=== PATIENT | male | born 1990 | race Caucasian/White ===

== ENCOUNTER 2017-08-06 11:49 | Inpatient (IN) | payer OTHER ==
[2017-08-06 12:23] VITALS: BMI 23.6
--- NOTE | 2017-08-06 13:19 | HP ---
CIWA Score - CIWA Score Nausea/Vomitin-Int. Nausea w/Dry Heave Muscle Tremors: 4-Moderate,w/Arms Extend Anxiety: 4-Mod. Anxious/Guarded Agitation: 4-Moderately Restless Paroxysmal Sweats: No Perspiration Orientation: 0-Oriented Tacttile Disturbances: 3-Moderate Itch/Numb/Burn Auditory Disturbances: 0-None Visual Disturbances: 0-None Headache: 2-Mild CIWA-Ar Total Score: 21 Admission ROS BHS - HPI Chief Complaint: WITHDRAWAL SX FROM ALCOHOL Allergies/Adverse Reactions: Allergies Allergy/AdvReac Type Severity Reaction Status Date / Time No Known Allergies Allergy Verified 08/06/17 13:16 History of Present Illness: 26 Y/O H/M WITH A HX OF ALCOHOL DEPENDENCE SEEKING DETOX TX. PT ON METHADONE 110 MG PO DAILY WITH S.T.A.R.T. LAST DOSE TODAY 08/06/17. FIRST TIME HERE FOR DETOX. TOX BENZO(+) BUT PT DENIES USING BENZO EVER. Exam Limitations: No Limitations, Intoxication - Ebola screening Have you traveled outside of the country in the last 21 days: No Have you had contact with anyone from an Ebola affected area: No Have you been sick,other than usual withdrawal symptoms: No Do you have a fever: No - Review of Systems Constitutional: Loss of Appetite, Changes in sleep, Unintentional Wgt. Loss EENT: reports: Blurred Vision, Tearing, Nose Congestion Respiratory: reports: No Symptoms reported Cardiac: reports: No Symptoms Reported GI: reports: Constipated, Nausea, Poor Appetite, Poor Fluid Intake : reports: No Symptoms Reported Musculoskeletal: reports: Joint Pain Integumentary: reports: Dryness Neuro: reports: Headache, Tremors, Unsteady Gait, Dizziness Endocrine: reports: No Symptoms Reported Hematology: reports: Anemia Psychiatric: reports: Orientated x3 Other Systems: Reviewed and Negative Patient History - Patient Medical History Hx Anemia: Yes Hx Asthma: No Hx Cardiac Disorders: No Hx Hypertension: No Hx Hypercholesterolemia: No HX Cerebrovascular Accident: No Hx Seizures: No Hx Diabetes: No Hx Gastrointestinal Disorders: No Hx Sexually Transmitted Disorders: No (DENIES) Hx Renal Disease (ESRD): No Hx Thyroid Disease: No Hx Human Immunodeficiency Virus (HIV): No (NEGATIVE HX) Hx Hepatitis C: No Hx Depression: No Hx Suicide Attempt: No (DENIES) Hx Bipolar Disorder: No Hx Schizophrenia: No - Patient Surgical History Past Surgical History: No Hx Neurologic Surgery: No Hx Cataract Extraction: No Hx Cardiac Surgery: No Hx Lung Surgery: No Hx Breast Surgery: No Hx Breast Biopsy: No Hx Abdominal Surgery: No Hx Appendectomy: No Hx Cholecystectomy: No Hx Genitourinary Surgery: No Hx Orthopedic Surgery: No Anesthesia Reaction: No - PPD History Previous Implant?: Yes Implanted On Prior [facility] Admission?: No PPD to be Administered?: Yes - Reproductive History Patient is a Female of Child Bearing Age (11 -55 yrs old): No (MALE) - Smoking Cessation Smoking history: Never smoked Have you smoked in the past 12 months: No Hx Chewing Tobacco Use: No Initiated information on smoking cessation: No - Substance & Tx. History Hx Alcohol Use: Yes (VODKA) Hx Substance Use: No (DENIES) Substance Use Type: Alcohol Hx Substance Use Treatment: Yes ([facility] - Substances Abused Alcohol Route: Oral Frequency: Daily Amount used: 2-3 PTS VODKA Age of first use: 15 Date of Last Use: 08/06/17 Family Disease History - Family Disease History Family Disease History: Diabetes: Mother (), Respiratory: Grandparent ( GM-ASTHMA(ALIVE)) Admission Physical Exam S - Vital Signs Vital Signs: Vital Signs - 24 hr 08/06/17 12:20 Temperature 98.1 F Pulse Rate 110 H Respiratory 18 Rate Blood Pressure 140/100 - Physical General Appearance: Yes: Moderate Distress, Alcohol on Breath, Intoxicated, Irritable, Anxious HEENTM: Yes: EOMI, Normocephalic, TALIA, Pharynx Normal Respiratory: Yes: Chest Non-Tender, Lungs Clear, Normal Breath Sounds, No Respiratory Distress Neck: Yes: No masses,lesions,Nodules, Supple, Trachea in good position Breast: Yes: Breast Exam Deferred Cardiology: Yes: Regular Rhythm, Regular Rate, S1, S2 Abdominal: Yes: Normal Bowel Sounds, Non Tender, Flat, Soft Genitourinary: Yes: Other (N/C) Back: Yes: Within Normal Limits Musculoskeletal: Yes: full range of Motion, Gait Steady Extremities: Yes: Normal Range of Motion, Non-Tender 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 [employer] II-XII NML intact, Motor Strength 5/5 Integumentary: Yes: Dry, Warm Lymphatic: Yes: Within Normal Limits - Diagnostic (1) Alcohol dependence with uncomplicated withdrawal Current Visit: Yes Status: Acute (2) Methadone maintenance therapy patient Current Visit: Yes Status: Chronic Cleared for Admission [facility] - Detox or Rehab [facility] Level of Care: Medically Managed Detox Regimen/Protocol: Librium [facility] Breath Alcohol Content Breath Alcohol Content: 0.282 Urine Drug Screen - Results Drug Screen Negative: No Urine Drug Screen Results: BZO-Benzodiazepines, MTD-Methadone
[2017-08-06] MEDS ORDERED: MAGNESIUM CITRATE 300 ML BOTTLE PO PRN (13:35)
[2017-08-06] MEDS ORDERED: LOPERAMIDE HCL 2 MG CAPSULE PO PRN (13:35)
[2017-08-06] MEDS ORDERED: MAGNESIUM HYDROX 2400MG/30ML ORAL SUSPENSION 30 ML CUP PO PRN (13:35)
[2017-08-06] MEDS ORDERED: P-EPHED 60MG/TRIPROLIDI 2.5MG TABLET PO PRN (13:35)
[2017-08-06] MEDS ORDERED: guaiFENesin/D-METHORPHAN HB 10 ML UNIT-DOSE CUPS PO PRN (13:35)
[2017-08-06] MEDS ORDERED: ACETAMINOPHEN 325 MG TABLET (FP) PO PRN (13:35)
[2017-08-06] MEDS ORDERED: chlordiazePOXIDE HCL 25 MG CAPSULE PO ONE (15:20)
[2017-08-06 18:05] LABS: HEMATOCRIT 34.1 % (35.4-49); HEMOGLOBIN 11.1 GM/dL (11.7-16.9); MCH 32.7 pg (25.7-33.7); MCHC 32.6 g/dl (32.0-35.9); MEAN CELL VOLUME 100.4 fl (80-96); MEAN PLT VOLUME 8.3 fl (7.5-11.1); PLATELET COUNT 447 K/MM3 (134-434); RBC 3.39 M/mm3 (4.00-5.60); RDW 13.9 % (11.9-15.9); WHITE BLOOD COUNT 9.9 K/mm3 (4.0-10.0)
[2017-08-06] MEDS: chlordiazePOXIDE HCL 25 MG CAPSULE PO SCH ×2 (18:07→22:35)
[2017-08-06 18:15] LABS: ANION GAP 9 (8-16); BILIRUBIN,TOTAL 1.4 mg/dL (0.2-1.0); BLOOD UREA NITROGEN 18 mg/dL (7-18); CALCIUM 8.7 mg/dL (8.5-10.1); CHLORIDE 105 mmol/L (98-107); CO2 27 mmol/L (21-32); GLUCOSE,RANDOM 96 mg/dL (74-106); POTASSIUM 4.1 mmol/L (3.5-5.1); SGOT/AST 156 U/L (15-37); SGPT/ALT 132 U/L (12-78); SODIUM 141 mmol/L (136-145)
[2017-08-06 18:27] LABS: URINE APPEARANCE TURBID; URINE BILIRUBIN NEGATIVE (NEGATIVE); URINE BLOOD NEGATIVE (NEGATIVE); URINE COLOR AMBER; URINE GLUCOSE (UA) NEGATIVE (NEGATIVE); URINE KETONE NEGATIVE (NEGATIVE); URINE LEUK ESTERASE 1+ (NEGATIVE); URINE NITRITE NEGATIVE (NEGATIVE); URINE PROTEIN 1+ (NEGATIVE); URINE UROBILINOGEN 4.0 E.U/dl mg/dL (0.2-1.0)
[2017-08-06 18:30] LABS: ALK PHOS 1210 U/L (45-117)
[2017-08-06 18:42] LABS: EPI CELLS RARE /HPF (FEW); URINE BACTERIA RARE /hpf (NONE SEEN); URINE HYALINE CAST 2 /lpf; URINE MUCUS MANY
[2017-08-06 19:17] LABS: SICKLE CELL SCREEN NEGATIVE (NEGATIVE)
[2017-08-06] MEDS: THIAMINE HCL 100 MG TABLET (FP) PO SCH (22:35)
[2017-08-06] MEDS: MENTHOL/PHENOL 1 EACH UD MM PRN (22:44)
[2017-08-06] MEDS: MAG HYDROX/AL HYDROX/SIMETH 30 ML UNIT-DOSE CUP PO PRN (23:42)
[2017-08-07] MEDS: chlordiazePOXIDE HCL 25 MG CAPSULE PO SCH ×4 (05:17→22:31)
[2017-08-07] MEDS ORDERED: METHADONE HCL 40 MG DISPERSABLE TABLET PO SCH (08:45)
[2017-08-07] MEDS ORDERED: METHADONE HCL 40 MG DISPERSABLE TABLET ONE (09:21)
[2017-08-07] MEDS ORDERED: METHADONE HCL 10 MG TABLET ONE (09:22)
--- NOTE | 2017-08-07 09:38 | EKG ---
Test Reason : Blood Pressure : / mmHG Vent. Rate : 070 BPM Atrial Rate : 070 BPM P-R Int : 160 ms QRS Dur : 084 ms QT Int : 412 ms P-R-T Axes : 054 059 047 degrees QTc Int : 444 ms NORMAL SINUS RHYTHM NORMAL ECG NO PREVIOUS ECGS AVAILABLE Confirmed by ANTONIO MCINTYRE, CAMERON ([id number]) on 08/07/2017 9:37:40 AM Referred By: Confirmed By:CAMERON ALVAREZ MD
--- NOTE | 2017-08-07 10:10 | PN ---
S CIWA - CIWA Score Nausea/Vomitin Muscle Tremors: 3 Anxiety: 3 Agitation: 2 Paroxysmal Sweats: 1-Minimal Palms Moist Orientation: 0-Oriented Tacttile Disturbances: 1-Very Mild Itch/Numbness Auditory Disturbances: 1-Very Mild Visual Disturbances: 0-None Headache: 2-Mild CIWA-Ar Total Score: 16 BHS Progress Note (SOAP) Subjective: ALERT,IRRITABLE,ANXIOUS,INTERRUPTED SLEEP,TREMOR,ITCHING BOTH FOREARMS Objective: 08/07/17 10:07 Vital Signs Temperature 97.9 F 08/07/17 07:27 Pulse Rate 60 08/07/17 07:27 Respiratory Rate 16 08/07/17 07:27 Blood Pressure 138/84 08/07/17 07:27 O2 Sat by Pulse Oximetry (%) EKG NSR,NORMAL ECG Laboratory Last Values WBC 9.9 K/mm3 (4.0-10.0) 08/06/17 14:00 RBC 3.39 M/mm3 (4.00-5.60) L 08/06/17 14:00 Hgb 11.1 GM/dL (11.7-16.9) L 08/06/17 14:00 Hct 34.1 % (35.4-49) L 08/06/17 14:00 MCV 100.4 fl (80-96) H 08/06/17 14:00 MCH 32.7 pg (25.7-33.7) 08/06/17 14:00 MCHC 32.6 g/dl (32.0-35.9) 08/06/17 14:00 RDW 13.9 % (11.9-15.9) 08/06/17 14:00 Plt Count 447 K/MM3 (134-434) H 08/06/17 14:00 MPV 8.3 fl (7.5-11.1) 08/06/17 14:00 Sickle Cell Screen Negative (NEGATIVE) 08/06/17 14:00 Sodium 141 mmol/L (136-145) 08/06/17 14:00 Potassium 4.1 mmol/L (3.5-5.1) 08/06/17 14:00 Chloride 105 mmol/L (98-107) 08/06/17 14:00 Carbon Dioxide 27 mmol/L (21-32) 08/06/17 14:00 Anion Gap 9 (8-16) 08/06/17 14:00 BUN 18 mg/dL (7-18) 08/06/17 14:00 Creatinine 1.0 mg/dL (0.7-1.3) 08/06/17 14:00 Creat Clearance w eGFR > 60 (>60) 08/06/17 14:00 Random Glucose 96 mg/dL (74-106) 08/06/17 14:00 Calcium 8.7 mg/dL (8.5-10.1) 08/06/17 14:00 Total Bilirubin 1.4 mg/dL (0.2-1.0) H 08/06/17 14:00 AST 156 U/L (15-37) H 08/06/17 14:00 ALT 132 U/L (12-78) H 08/06/17 14:00 Alkaline Phosphatase 1210 U/L (45-117) H 08/06/17 14:00 Total Protein 9.0 g/dl (6.4-8.2) H 08/06/17 14:00 Albumin 3.0 g/dl (3.4-5.0) L 08/06/17 14:00 Urine Color Jaqui 08/06/17 18:00 Urine Appearance Turbid 08/06/17 18:00 Urine pH 5.0 (5.0-8.0) 08/06/17 18:00 Ur Specific [place] 1.026 (1.001-1.035) 08/06/17 18:00 Urine Protein 1+ (NEGATIVE) H 08/06/17 18:00 Urine Glucose (UA) Negative (NEGATIVE) 08/06/17 18:00 Urine Ketones Negative (NEGATIVE) 08/06/17 18:00 Urine Blood Negative (NEGATIVE) 08/06/17 18:00 Urine Nitrite Negative (NEGATIVE) 08/06/17 18:00 Urine Bilirubin Negative (NEGATIVE) 08/06/17 18:00 Urine Urobilinogen 4.0 e.u/dl mg/dL (0.2-1.0) 08/06/17 18:00 Ur Leukocyte Esterase 1+ (NEGATIVE) H 08/06/17 18:00 Urine WBC (Auto) 12 /hpf (3-5) 08/06/17 18:00 Urine RBC (Auto) 11 /hpf (0-3) 08/06/17 18:00 Ur Epithelial Cells Rare /HPF (FEW) 08/06/17 18:00 Urine Bacteria Rare /hpf (NONE SEEN) 08/06/17 18:00 Hyaline Casts 2 /lpf 08/06/17 18:00 Urine Mucus Many 08/06/17 18:00 RPR Titer Nonreactive (NONREACTIVE) 08/06/17 14:00 Assessment: 08/07/17 10:08 WITHDRAWAL SYMPTOM Plan: CONTINUE DETOX,D/C TYLENOL,REPEAT CMP,INR IN AM
[2017-08-07] MEDS: METHADONE 80 MG, METHADONE 30 MG PO SCH (10:24)
[2017-08-07] MEDS: PRENATAL VITAMINS W/ FOLIC ACID TABLET (FP) PO SCH (10:25)
[2017-08-07] MEDS: HYDROCORTISONE 1% TOPICAL CREAM 30 GM TUBE TP SCH ×2 (10:25→22:33)
[2017-08-07] MEDS ORDERED: cloNIDine HCL 0.1 MG TABLET PO ONE (12:27)
[2017-08-07] MEDS: chlordiazePOXIDE HCL 25 MG CAPSULE PO PRN (13:00)
[2017-08-07] MEDS: MENTHOL/PHENOL 1 EACH UD MM PRN (14:53)
[2017-08-07] MEDS: diphenhydrAMINE HCL 25 MG CAPSULE (FP) PO PRN (16:52)
[2017-08-07] MEDS: THIAMINE HCL 100 MG TABLET (FP) PO SCH (22:31)
[2017-08-07] MEDS: amLODIPine BESYLATE 10 MG TABLET (FP) PO SCH (22:31)
[2017-08-08] MEDS: chlordiazePOXIDE HCL 25 MG CAPSULE PO PRN (02:42)
[2017-08-08] MEDS: MAG HYDROX/AL HYDROX/SIMETH 30 ML UNIT-DOSE CUP PO PRN (04:20)
[2017-08-08] MEDS ORDERED: METHADONE HCL 40 MG DISPERSABLE TABLET ONE (04:42)
[2017-08-08] MEDS ORDERED: METHADONE HCL 10 MG TABLET ONE (04:42)
[2017-08-08] MEDS: chlordiazePOXIDE HCL 25 MG CAPSULE PO SCH ×2 (05:15→10:32)
[2017-08-08] MEDS: METHADONE 80 MG, METHADONE 30 MG PO SCH (05:15)
--- NOTE | 2017-08-08 10:03 | PN ---
S CIWA - CIWA Score Nausea/Vomitin Muscle Tremors: 3 Anxiety: 3 Agitation: 3 Paroxysmal Sweats: 1-Minimal Palms Moist Orientation: 0-Oriented Tacttile Disturbances: 1-Very Mild Itch/Numbness Auditory Disturbances: 1-Very Mild Visual Disturbances: 0-None Headache: 2-Mild CIWA-Ar Total Score: 17 BHS Progress Note (SOAP) Subjective: ALERT,IRRITABLE,ANXIOUS,INTERRUPTED SLEEP,TREMOR Objective: 08/08/17 10:02 Vital Signs Temperature 98.1 F 08/08/17 10:00 Pulse Rate 73 08/08/17 10:00 Respiratory Rate 20 08/08/17 10:00 Blood Pressure 151/87 08/08/17 10:00 O2 Sat by Pulse Oximetry (%) REPEAT CMP,INR PENDING Assessment: 08/08/17 10:03 WITHDRAWAL SYMPTOM Plan: CONTINUE DETOX
[2017-08-08 10:04] LABS: PROTHROMBIN TIME (PATIENT) 11.3 SEC (9.98-11.88)
[2017-08-08 10:05] LABS: CHLORIDE 99 mmol/L (98-107); POTASSIUM 4.4 mmol/L (3.5-5.1); SODIUM 133 mmol/L (136-145)
[2017-08-08] MEDS: HYDROCORTISONE 1% TOPICAL CREAM 30 GM TUBE TP SCH ×2 (10:32→22:16)
[2017-08-08] MEDS: PRENATAL VITAMINS W/ FOLIC ACID TABLET (FP) PO SCH (10:32)
[2017-08-08] MEDS: amLODIPine BESYLATE 10 MG TABLET (FP) PO SCH (10:32)
[2017-08-08 10:35] LABS: ALBUMIN 2.9 g/dl (3.4-5.0); ANION GAP 6 (8-16); BILIRUBIN,TOTAL 2.5 mg/dL (0.2-1.0); BLOOD UREA NITROGEN 17 mg/dL (7-18); CALCIUM 9.5 mg/dL (8.5-10.1); CO2 28 mmol/L (21-32); CREATININE 0.8 mg/dL (0.7-1.3); GLUCOSE,RANDOM 121 mg/dL (74-106); SGOT/AST 195 U/L (15-37); SGPT/ALT 137 U/L (12-78)
[2017-08-08] MEDS: MENTHOL/PHENOL 1 EACH UD MM PRN (10:35)
[2017-08-08 10:37] LABS: ALK PHOS 1236 U/L (45-117)
[2017-08-08] MEDS: chlordiazePOXIDE 5 MG CAPSULE PO SCH ×2 (17:55→22:15)
[2017-08-08] MEDS: THIAMINE HCL 100 MG TABLET (FP) PO SCH (22:15)
[2017-08-08] MEDS: IBUPROFEN 400 MG TABLET (FP) PO PRN (23:54)
[2017-08-09] MEDS: chlordiazePOXIDE HCL 25 MG CAPSULE PO PRN (03:09)
[2017-08-09] MEDS: diphenhydrAMINE HCL 25 MG CAPSULE (FP) PO PRN (03:22)
[2017-08-09] MEDS: chlordiazePOXIDE 5 MG CAPSULE PO SCH ×2 (05:17→11:30)
[2017-08-09] MEDS ORDERED: METHADONE HCL 40 MG DISPERSABLE TABLET ONE (05:17)
[2017-08-09] MEDS ORDERED: METHADONE HCL 10 MG TABLET ONE (05:17)
[2017-08-09] MEDS: METHADONE 80 MG, METHADONE 30 MG PO SCH (05:17)
[2017-08-09] MEDS: HYDROCORTISONE 1% TOPICAL CREAM 30 GM TUBE TP SCH ×2 (11:30→22:20)
[2017-08-09] MEDS: amLODIPine BESYLATE 10 MG TABLET (FP) PO SCH (11:30)
[2017-08-09] MEDS: PRENATAL VITAMINS W/ FOLIC ACID TABLET (FP) PO SCH (11:30)
--- NOTE | 2017-08-09 12:07 | PN ---
S Progress Note (SOAP) Subjective: ALERT,IRRITABLE,ANXIOUS,INTERRUPTED SLEEP, Objective: 08/09/17 12:05 Vital Signs Temperature 98.1 F 08/09/17 10:30 Pulse Rate 85 08/09/17 10:30 Respiratory Rate 18 08/09/17 10:30 Blood Pressure 152/81 08/09/17 10:30 O2 Sat by Pulse Oximetry (%) Assessment: 08/09/17 12:05 WITHDRAWAL SYMPTOM Plan: CONTINUE DETOX,DISCHARGE IN AM,A & D OINTMENT
[2017-08-09] MEDS: IBUPROFEN 400 MG TABLET (FP) PO PRN ×2 (17:37→23:42)
[2017-08-09] MEDS: chlordiazePOXIDE HCL 10 MG CAPSULE PO SCH ×2 (17:38→22:20)
[2017-08-09] MEDS: VITAMINS A AND D TOPICAL OINTMENT 60 GM TUBE TP SCH ×2 (18:05→23:18)
[2017-08-09] MEDS: THIAMINE HCL 100 MG TABLET (FP) PO SCH (22:20)
[2017-08-10] MEDS ORDERED: METHADONE HCL 10 MG TABLET ONE (04:25)
[2017-08-10] MEDS ORDERED: METHADONE HCL 40 MG DISPERSABLE TABLET ONE (04:25)
[2017-08-10] MEDS: chlordiazePOXIDE HCL 10 MG CAPSULE PO SCH (05:42)
[2017-08-10] MEDS: METHADONE 80 MG, METHADONE 30 MG PO SCH (05:42)
[2017-08-10] MEDS: VITAMINS A AND D TOPICAL OINTMENT 60 GM TUBE TP SCH (05:44)
[2017-08-10 06:44] VITALS: BP 142/67; PULSE 67; TEMP 98.1
--- NOTE | 2017-08-10 08:56 | DS ---
[facility] Detox Discharge Summary Admission Date: 08/06/17 Discharge Date: 08/10/17 - History Present History: Alcohol Dependence, MMTP Additional Comments: FOLLOW UP WITH AFTER CARE PROGRAM ARRANGEMENT Pertinent Past History: CONTACT DERMATITIS - Physical Exam Results Vital Signs: Vital Signs Temperature 98.1 F 08/10/17 06:00 Pulse Rate 67 08/10/17 06:00 Respiratory Rate 16 08/10/17 06:00 Blood Pressure 142/67 08/10/17 06:00 O2 Sat by Pulse Oximetry (%) Pertinent Admission Physical Exam Findings: WITHDRAWAL SIGNS AND SYMPTOM - Treatment Hospital Course: Detox Protocol Followed, Detoxed Safely, Responded well, Discharged Condition Good Patient has Accepted a Rehab Referral to: DECLINED - Diagnosis (1) Alcohol dependence with uncomplicated withdrawal Current Visit: Yes Status: Acute (2) Methadone maintenance therapy patient Current Visit: Yes Status: Chronic (3) Contact dermatitis Current Visit: Yes Status: Acute - AMA Did Patient Leave Against Medical Advice: No
== END 2017-08-10 09:08 | disposition home or self-care (01) | DRG 773 ==
LOC: YASAS 11:49 → Y6N 15:13
PROVIDERS: ADMIT Internal Medicine; ATTEND Internal Medicine
PROC: HZ2ZZZZ Detoxification Services for Substance Abuse Treatment (ICD-10-PCS; principal; 2017-08-06)
DX: F11.20 Opioid dependence, uncomplicated (principal); F10.230 Alcohol dependence with withdrawal, uncomplicated; L25.9 Unspecified contact dermatitis, unspecified cause
CPT/HCPCS: 36415; 80053; 81003; 81015; 85027; 85610; 85660; 86593; 93005; 93010

== ENCOUNTER 2017-08-14 15:55 | Inpatient (IN) | payer OTHER ==
[~2017-08-14 15:55] MED LIST: diphenhydrAMINE HCL 25 MG CAPSULE (FP) PO ONE
[2017-08-14 19:48] VITALS: BMI 22.3
--- NOTE | 2017-08-14 21:32 | HP ---
Admission ROS [facility] Chief Complaint: Alcohol dependence seeking admission to rehab Allergies/Adverse Reactions: Allergies Allergy/AdvReac Type Severity Reaction Status Date / Time No Known Allergies Allergy Verified 08/06/17 13:16 History of Present Illness: Patient with a history of alcohol dependence is admitted to rehab. Patient has been in previous rehab treatment at [facility]. He reports medical history of anemia and eczema and denies suicidal ideation at this time. Patient is on Methadone 100mg oral daily at [facility] MMTP. Dose is to be verified by the nurse. Exam Limitations: No Limitations - Ebola screening Have you traveled outside of the country in the last 21 days: No Have you had contact with anyone from an Ebola affected area: No Have you been sick,other than usual withdrawal symptoms: No - Review of Systems Constitutional: No Symptoms Reported EENT: reports: No Symptoms Reported Respiratory: reports: No Symptoms reported Cardiac: reports: No Symptoms Reported GI: reports: No Symptoms Reported : reports: No Symptoms Reported Musculoskeletal: reports: No Symptoms Reported Integumentary: reports: No Symptoms Reported Neuro: reports: No Symptoms reported Endocrine: reports: No Symptoms Reported Hematology: reports: No Symptoms Reported Psychiatric: reports: No Sypmtoms Reported, Mood/Affect Appropiate, Orientated x3 Other Systems: Reviewed and Negative Patient History - Patient Medical History Hx Anemia: Yes Hx Asthma: No Hx Chronic Obstructive Pulmonary Disease (COPD): No Hx Cancer: No Hx Cardiac Disorders: No Hx Congestive Heart Failure: No Hx Hypertension: No Hx Hypercholesterolemia: No HX Cerebrovascular Accident: No Hx Seizures: No Hx Diabetes: No Hx Gastrointestinal Disorders: No Hx Liver Disease: No Hx Genitourinary Disorders: No Hx Sexually Transmitted Disorders: No (DENIES) Hx Renal Disease (ESRD): No Hx Thyroid Disease: No Hx Human Immunodeficiency Virus (HIV): No (Negative 2016) Hx Hepatitis C: No (Negative 2016) Hx Depression: No Hx Suicide Attempt: No (Denies suicidal ideation at this time) Hx Bipolar Disorder: No Hx Schizophrenia: No - Patient Surgical History Past Surgical History: No Hx Neurologic Surgery: No Hx Cataract Extraction: No Hx Cardiac Surgery: No Hx Lung Surgery: No Hx Abdominal Surgery: No Hx Appendectomy: No Hx Cholecystectomy: No Hx Genitourinary Surgery: No Hx Orthopedic Surgery: No Anesthesia Reaction: No - PPD History Previous Implant?: Yes Documented Results: Negative w/proof Implanted On Prior [facility] Admission?: Yes PPD to be Administered?: No - Reproductive History Patient is a Female of Child Bearing Age (11 -55 yrs old): No (MALE) - Smoking Cessation Smoking history: Never smoked Have you smoked in the past 12 months: No Hx Chewing Tobacco Use: No - Substance & Tx. History Hx Alcohol Use: Yes Substance Use Type: Alcohol Hx Substance Use Treatment: Yes ([facility]) - Substances Abused Alcohol Route: Oral Frequency: Daily Amount used: VODKA - 1/2 PINT Age of first use: 15 Date of Last Use: 07/30/17 Family Disease History - Family Disease History Family Disease History: Diabetes: Mother (ASTHMA, ), Respiratory: Grandparent (GM-ASTHMA(ALIVE)), Mother Admission Physical Exam [facility] - Vital Signs Vital Signs: Vital Signs - 24 hr 08/14/17 19:44 Temperature 98.0 F Pulse Rate 75 Respiratory 18 Rate Blood Pressure 165/82 - Physical General Appearance: Yes: Within Normal Limits HEENTM: Yes: EOMI, Normal ENT Inspection, Normocephalic, Normal Voice, TALIA Respiratory: Yes: Lungs Clear, Normal Breath Sounds, No Respiratory Distress Neck: Yes: Supple Breast: Yes: Breast Exam Deferred Cardiology: Yes: Regular Rhythm, Regular Rate, S1, S2 Abdominal: Yes: Normal Bowel Sounds, Soft Genitourinary: Yes: Within Normal Limits Back: Yes: Normal Inspection Musculoskeletal: Yes: Within Normal Limits Extremities: Yes: Within Normal Limits Neurological: Yes: Within Normal Limits Integumentary: Yes: Within Normal Limits, Dry Lymphatic: Yes: Within Normal Limits - Diagnostic (1) Anemia Current Visit: Yes Status: Chronic Qualifiers: Anemia type: B12 deficiency (2) Alcohol dependence with uncomplicated withdrawal Current Visit: Yes Status: Chronic (3) Contact dermatitis Current Visit: Yes Status: Chronic (4) Methadone maintenance therapy patient Current Visit: Yes Status: Chronic Cleared for Admission [facility] - Detox or Rehab [facility] Level of Care: Observation Bed Claeared for Rehab Admission: Yes [facility] Breath Alcohol Content Breath Alcohol Content: 0 Urine Drug Screen - Results Drug Screen Negative: No Urine Drug Screen Results: BZO-Benzodiazepines Inpatient Rehab Admission - Initial Determination Are CD services needed?: Yes Free of communicable disease: Yes Not in need of hospitalization: Yes - Rehab Admission Criteria Previous failed treatment: Yes Poor recovery environment: Yes Comorbidities: No Lacks judgement: No Patient is meeting Inpatient Rehab admission criteria:: Yes
[2017-08-14] MEDS ORDERED: P-EPHED 60MG/TRIPROLIDI 2.5MG TABLET PO PRN (21:45)
[2017-08-14] MEDS ORDERED: MENTHOL/PHENOL 1 EACH UD MM PRN (21:45)
[2017-08-14] MEDS ORDERED: MAG HYDROX/AL HYDROX/SIMETH 30 ML UNIT-DOSE CUP PO PRN (21:45)
[2017-08-14] MEDS ORDERED: LOPERAMIDE HCL 2 MG CAPSULE PO PRN (21:45)
[2017-08-14] MEDS ORDERED: guaiFENesin/D-METHORPHAN HB 10 ML UNIT-DOSE CUPS PO PRN (21:45)
[2017-08-14] MEDS ORDERED: ACETAMINOPHEN 325 MG TABLET (FP) PO PRN (21:45)
[2017-08-14] MEDS ORDERED: IBUPROFEN 400 MG TABLET (FP) PO PRN (21:45)
[2017-08-14] MEDS ORDERED: MAGNESIUM CITRATE 300 ML BOTTLE PO PRN (21:45)
[2017-08-14] MEDS ORDERED: HYDROCORTISONE 1% TOPICAL CREAM 30 GM TUBE TP SCH (22:00)
[2017-08-14] MEDS: THIAMINE HCL 100 MG TABLET (FP) PO SCH (23:55)
[2017-08-15] MEDS ORDERED: diphenhydrAMINE HCL 25 MG CAPSULE (FP) PO ONE (00:30)
--- NOTE | 2017-08-15 09:07 | PN ---
BHS Progress Note (SOAP) Subjective: c/o eczema and dry skin on hands causing itching also feet and other parts of body, eczema not effective, does nto like steroid cream would like to restart oral teroids Objective: 08/15/17 09:06 Vital Signs - 24 hr 08/14/17 08/15/17 08/15/17 19:44 03:59 06:52 Temperature 98.0 F 98.5 F Pulse Rate 75 80 Respiratory 18 18 Rate Blood Pressure 165/82 153/84 labs pending Assessment: 08/15/17 09:06 restart oral predinisone, switch to hydrocortisone ointment, hydroxyzine for itching.
[2017-08-15] MEDS ORDERED: METHADONE HCL 10 MG TABLET PO SCH (09:15)
[2017-08-15] MEDS ORDERED: METHADONE HCL 10 MG TABLET ONE (09:52)
[2017-08-15] MEDS: METHADONE 80 MG, METHADONE 20 MG PO SCH (10:01)
[2017-08-15] MEDS: PRENATAL VITAMINS W/ FOLIC ACID TABLET (FP) PO SCH (10:01)
[2017-08-15] MEDS: predniSONE 20 MG TABLET (UD) PO SCH (10:19)
[2017-08-15] MEDS: HYDROCORTISONE 1% TOPICAL OINT 30 GM TUBE TP SCH (10:20)
[2017-08-15] MEDS: COLLOIDAL OATMEAL 1 BAR EACH TP PRN (10:23)
[2017-08-15 10:50] LABS: ALBUMIN 2.7 g/dl (3.4-5.0); ANION GAP 9 (8-16); BLOOD UREA NITROGEN 14 mg/dL (7-18); CALCIUM 9.3 mg/dL (8.5-10.1); CHLORIDE 98 mmol/L (98-107); CO2 27 mmol/L (21-32); CREATININE 0.9 mg/dL (0.7-1.3); GLUCOSE,RANDOM 94 mg/dL (74-106); HEMATOCRIT 33.2 % (35.4-49); HEMOGLOBIN 11.1 GM/dL (11.7-16.9); MCH 32.7 pg (25.7-33.7); MCHC 33.3 g/dl (32.0-35.9); MEAN CELL VOLUME 98.2 fl (80-96); MEAN PLT VOLUME 8.4 fl (7.5-11.1); PLATELET COUNT 528 K/MM3 (134-434); POTASSIUM 4.4 mmol/L (3.5-5.1); RBC 3.38 M/mm3 (4.00-5.60); RDW 12.9 % (11.9-15.9); SGOT/AST 130 U/L (15-37); SGPT/ALT 88 U/L (12-78); SODIUM 134 mmol/L (136-145); WHITE BLOOD COUNT 9.8 K/mm3 (4.0-10.0)
[2017-08-15 10:53] LABS: ALK PHOS 998 U/L (45-117); BILIRUBIN,TOTAL 1.9 mg/dL (0.2-1.0); TOT PROT 8.5 g/dl (6.4-8.2)
--- NOTE | 2017-08-15 11:21 | HP ---
Psychiatrist Admission - Data Date of interview: 08/15/17 Admission source: 3N Identifying data: This is the first 5N inpatient rehabilitation admission for this 26 year old isngle male, unemployed and domiciled. Medical History: Contact dermatitis, HTN no meds and anemia. Patient on MMTP at [facility] 100 mg/daily. Psychiatric History: Patient reports history of anxiety and mood swings, states saw the psychiatrist while at [facility] rehabilitation treatment and was on Gabapentin 300 mg po tid, states he tried Buspar and was not effective. He continues Gabapenit after the complition of rehab. and then was off medication for 2 months since was incarcerated for 2 months. He currently reports feeling very anxious and willing to restart Gabapentin. Physical/Sexual Abuse/Trauma History: Patient denies history of sexual, physical and verbal abuse. Vital Signs: Vital Signs - 24 hr 08/14/17 08/15/17 08/15/17 19:44 03:59 06:52 Temperature 98.0 F 98.5 F Pulse Rate 75 80 Respiratory 18 Rate Blood Pressure 165/82 153/84 Allergies/Adverse Reactions: Allergies Allergy/AdvReac Type Severity Reaction Status Date / Time No Known Allergies Allergy Verified 08/06/17 13:16 Date of last physical exam: 08/14/17 Concur with the findings of this exam: Yes - Substance Abuse/Tx History Hx Alcohol Use: Yes (2-3 pints of vodka daily) Hx Substance Use: No (on MMTP 100 mg daily.) Hx Substance Use Treatment: Yes ([facility] completed) Mental Status Exam - Mental Status Exam Alert and Oriented to: Time, Place, Person Cognitive Function: Grossly Intact Patient Appearance: Well Groomed Mood: Sad, Anxious Affect: Appropriate, Mood Congruent Patient Behavior: Appropriate, Cooperative Speech Pattern: Clear, Appropriate Voice Loudness: Normal Thought Process: Intact, Goal Oriented Thought Disorder: Not Present Hallucinations: Denies Suicidal Ideation: Denies Homicidal Ideation: Denies Insight/Judgement: Fair Sleep: Fair Appetite: Good Muscle strength/Tone: Normal Gait/Station: Normal Psychiatric Findings - Problem List ([place] 1, 2,3) (1) Alcohol-induced anxiety disorder Current Visit: Yes Status: Acute (2) Alcohol dependence Current Visit: Yes Status: Acute (3) Anemia Current Visit: Yes Status: Chronic Qualifiers: Anemia type: B12 deficiency (4) Contact dermatitis Current Visit: Yes Status: Chronic (5) Methadone maintenance therapy patient Current Visit: Yes Status: Chronic - Initial Treatment Plan Initial Treatment Plan: Will restart Gabapentin 300 mg po tid, monitor progress as needed.
--- NOTE | 2017-08-15 12:35 | EKG ---
Test Reason : Blood Pressure : / mmHG Vent. Rate : 051 BPM Atrial Rate : 051 BPM P-R Int : 158 ms QRS Dur : 092 ms QT Int : 468 ms P-R-T Axes : 052 063 043 degrees QTc Int : 431 ms SINUS BRADYCARDIA MINIMAL VOLTAGE CRITERIA FOR LVH, MAY BE NORMAL VARIANT BORDERLINE ECG WHEN COMPARED WITH ECG OF 06-AUG-2017 17:40, NO SIGNIFICANT CHANGE WAS FOUND Confirmed by ANANT MCINTYRE, GRETCHEN ([id number]) on 08/15/2017 12:35:20 PM Referred By: Confirmed By:GRETCHEN [place] MD
[2017-08-15] MEDS ORDERED: diphenhydrAMINE HCL 25 MG CAPSULE (FP) PO SCH (14:00)
[2017-08-15] MEDS: GABAPENTIN 300 MG CAPSULE (FP) PO SCH ×2 (15:00→21:14)
[2017-08-15] MEDS: hydrOXYzine PAMOATE 50 MG CAPSULE (FP) PO SCH ×2 (15:28→21:14)
[2017-08-15] MEDS: THIAMINE HCL 100 MG TABLET (FP) PO SCH (21:14)
[2017-08-16] MEDS ORDERED: METHADONE HCL 10 MG TABLET ONE (02:42)
[2017-08-16] MEDS ORDERED: METHADONE HCL 40 MG DISPERSABLE TABLET ONE (02:42)
[2017-08-16] MEDS: METHADONE 80 MG, METHADONE 20 MG PO SCH (06:19)
[2017-08-16] MEDS: hydrOXYzine PAMOATE 50 MG CAPSULE (FP) PO SCH (06:20)
[2017-08-16] MEDS: GABAPENTIN 300 MG CAPSULE (FP) PO SCH ×3 (06:20→21:10)
[2017-08-16 08:27] LABS: URINE APPEARANCE CLEAR; URINE BILIRUBIN NEGATIVE (NEGATIVE); URINE BLOOD NEGATIVE (NEGATIVE); URINE COLOR YELLOW; URINE GLUCOSE (UA) NEGATIVE (NEGATIVE); URINE KETONE NEGATIVE (NEGATIVE); URINE LEUK ESTERASE NEGATIVE (NEGATIVE); URINE NITRITE NEGATIVE (NEGATIVE); URINE PROTEIN NEGATIVE (NEGATIVE); URINE UROBILINOGEN NEGATIVE mg/dL (0.2-1.0)
[2017-08-16] MEDS: predniSONE 20 MG TABLET (UD) PO SCH (09:49)
[2017-08-16] MEDS: PRENATAL VITAMINS W/ FOLIC ACID TABLET (FP) PO SCH (09:49)
[2017-08-16] MEDS: HYDROCORTISONE 1% TOPICAL OINT 30 GM TUBE TP SCH ×4 (09:51→21:14)
--- NOTE | 2017-08-16 13:28 | PN ---
Psychiatric Progress Note Vital Signs: Vital Signs Period Temp Pulse Resp BP Sys/Graham Pulse Ox Last 24 Hr 98.1 F 57 16-17 129/71 Date of Session: 08/16/17 Chief Complaint:: progress update HPI: Patient is addresing alcohol, nicotine dependence comorbid alcohol induced anxiety disorder. ROS: Contact dermatitis medically managed, HTN Current Medications: Active Medications Generic Name Dose Route Start Last Admin Trade Name Freq PRN Reason Stop Dose Admin Acetaminophen 650 mg 08/14/17 21:45 Tylenol - PO Q4H PRN FEVER Al Hydroxide/Mg Hydroxide 30 ml 08/14/17 21:45 Mylanta Oral Suspension - PO Q6H PRN DYSPEPSIA Colloidal Oatmeal 1 applic 08/15/17 09:08 08/15/17 10:23 Aveeno Soap - TP 1 applic DAILY PRN Administration HYGEINE Eucalyptus/Menthol/Phenol/Sorbitol 1 each 08/14/17 21:45 Cepastat Lozenge - MM Q4H PRN SORE THROAT Gabapentin 300 mg 08/15/17 14:00 08/16/17 06:20 Neurontin - PO 300 mg TID CHAPIS Administration Guaifenesin 10 ml 08/14/17 21:45 Robitussin Dm - PO Q6H PRN COUGH Hydrocortisone 1 applic 08/16/17 10:00 08/16/17 09:51 Hytone 1% Ointment - TP 1 applic QID CHAPIS Administration Hydroxyzine Pamoate 50 mg 08/16/17 13:17 Vistaril - PO Q4H PRN ANXIETY Ibuprofen 400 mg 08/14/17 21:45 Motrin - PO Q6H PRN Pain level 4-6 Lactic Acid 1 applic 08/15/17 09:04 Lac-Hydrin 12 TP BID PRN DRY SKIN Loperamide HCl 4 mg 08/14/17 21:45 Imodium - PO Q6H PRN DIARRHEA Magnesium Citrate 300 ml 08/14/17 21:45 Citroma - PO Q48H PRN CONSTIPATION Magnesium Hydroxide 30 ml 08/14/17 21:45 Milk Of Magnesia - PO DAILY PRN CONSTIPATION Methadone HCl 80 mg/ Methadone 100 mg 08/15/17 09:20 08/16/17 06:19 HCl 20 mg PO 08/22/17 09:19 100 mg DAILY@0600 CHAPIS Administration Prednisone 40 mg 08/15/17 10:00 08/16/17 09:49 Deltasone - PO 40 mg DAILY CHAPIS Administration Multivit/Folic Acid/Iron 1 tab 08/15/17 10:00 08/16/17 09:49 Vitamins ([facility]) - PO 1 tab DAILY CHAPIS Administration Pseudoephedrine/Triprolidine 1 combo 08/14/17 21:45 Actifed - PO TID PRN NASAL CONGESTION Thiamine HCl 100 mg 08/14/17 22:00 08/15/17 21:14 Vitamin B1 - PO 100 mg HS CHAPIS Administration Current Side Effect: No Lab tests ordered: No Lab tests reviewed: Yes Provider note:: Patient was seen today, he requested to change vistari orderl as PRN, was ordered as standart scheduled, reviewed current medications with the patient, discussed indications and properties each his current medications, patient also discussed his plans to get off his methadone, supportive therapy provided. Will adjust vistaril, continue to monitor progress as needed. Total face to face time:: 25 Mental Status Exam - Mental Status Exam Alert and Oriented to: Time, Place, Person Cognitive Function: Good Patient Appearance: Well Groomed Mood: Sad Affect: Mood Congruent Patient Behavior: Appropriate, Cooperative Speech Pattern: Clear, Appropriate Voice Loudness: Normal Thought Process: Intact, Goal Oriented, Disoriented Hallucinations: Denies Suicidal Ideation: Denies Homicidal Ideation: Denies Insight/Judgement: Fair Sleep: Fair Appetite: Fair Muscle strength/Tone: Normal Gait/Station: Normal Psychiatric Treatment Plan - Problem List (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
[2017-08-16] MEDS: THIAMINE HCL 100 MG TABLET (FP) PO SCH (21:10)
[2017-08-17] MEDS ORDERED: METHADONE HCL 40 MG DISPERSABLE TABLET ONE (01:58)
[2017-08-17] MEDS ORDERED: METHADONE HCL 10 MG TABLET ONE (01:58)
[2017-08-17] MEDS: METHADONE 80 MG, METHADONE 20 MG PO SCH (06:37)
[2017-08-17] MEDS: GABAPENTIN 300 MG CAPSULE (FP) PO SCH ×3 (06:37→21:07)
[2017-08-17] MEDS: MAGNESIUM HYDROX 2400MG/30ML ORAL SUSPENSION 30 ML CUP PO PRN (06:52)
[2017-08-17] MEDS: predniSONE 20 MG TABLET (UD) PO SCH (09:46)
[2017-08-17] MEDS: PRENATAL VITAMINS W/ FOLIC ACID TABLET (FP) PO SCH (09:46)
[2017-08-17] MEDS: HYDROCORTISONE 1% TOPICAL OINT 30 GM TUBE TP SCH ×5 (09:47→21:07)
[2017-08-17] MEDS: THIAMINE HCL 100 MG TABLET (FP) PO SCH (21:07)
[2017-08-18] MEDS ORDERED: METHADONE HCL 10 MG TABLET ONE (02:19)
[2017-08-18] MEDS ORDERED: METHADONE HCL 40 MG DISPERSABLE TABLET ONE (02:20)
[2017-08-18] MEDS: GABAPENTIN 300 MG CAPSULE (FP) PO SCH ×3 (06:10→21:07)
[2017-08-18] MEDS: METHADONE 80 MG, METHADONE 20 MG PO SCH (06:10)
--- NOTE | 2017-08-18 08:37 | PN ---
[facility] Progress Note Note: Labs reveal elevated liver enzymes with alk phos over 900 Vital Signs - 8 hr 08/18/17 08/18/17 03:21 06:48 Temperature 97.5 F L Pulse Rate 51 L Respiratory 18 18 Rate Blood Pressure 144/90 Laboratory Tests 08/14/17 08/15/17 08/15/17 23:50 07:00 07:00 WBC 9.8 RBC 3.38 L Hgb 11.1 L Hct 33.2 L MCV 98.2 H MCH 32.7 MCHC 33.3 RDW 12.9 Plt Count 528 H MPV 8.4 Sodium 134 L Potassium 4.4 Chloride 98 Carbon Dioxide 27 Anion Gap 9 BUN 14 Creatinine 0.9 Creat Clearance w eGFR > 60 Random Glucose 94 D Calcium 9.3 Total Bilirubin 1.9 H D AST 130 H D ALT 88 H D Alkaline Phosphatase 998 H Total Protein 8.5 H Albumin 2.7 L Urine Color Yellow Urine Appearance Clear Urine pH 6.0 Ur Specific [place] 1.019 Urine Protein Negative Urine Glucose (UA) Negative Urine Ketones Negative Urine Blood Negative Urine Nitrite Negative Urine Bilirubin Negative Urine Urobilinogen Negative Ur Leukocyte Esterase Negative RPR Titer Hepatitis C Antibody HIV 1&2 Antibody Screen HIV P24 Antigen 08/15/17 08/15/17 08/15/17 07:00 07:00 07:00 WBC RBC Hgb Hct MCV MCH MCHC RDW Plt Count MPV Sodium Potassium Chloride Carbon Dioxide Anion Gap BUN Creatinine Creat Clearance w eGFR Random Glucose Calcium Total Bilirubin AST ALT Alkaline Phosphatase Total Protein Albumin Urine Color Urine Appearance Urine pH Ur Specific [place] Urine Protein Urine Glucose (UA) Urine Ketones Urine Blood Urine Nitrite Urine Bilirubin Urine Urobilinogen Ur Leukocyte Esterase RPR Titer Nonreactive Hepatitis C Antibody 0.1 HIV 1&2 Antibody Screen Negative HIV P24 Antigen Negative labs noted Dx. : Transamitis P : Repeat liver enzymes
[2017-08-18] MEDS: PRENATAL VITAMINS W/ FOLIC ACID TABLET (FP) PO SCH (09:38)
[2017-08-18] MEDS: predniSONE 20 MG TABLET (UD) PO SCH (09:38)
[2017-08-18] MEDS: HYDROCORTISONE 1% TOPICAL OINT 30 GM TUBE TP SCH ×4 (09:39→21:07)
[2017-08-18] MEDS: THIAMINE HCL 100 MG TABLET (FP) PO SCH (21:07)
[2017-08-19] MEDS ORDERED: METHADONE HCL 40 MG DISPERSABLE TABLET ONE (03:53)
[2017-08-19] MEDS ORDERED: METHADONE HCL 10 MG TABLET ONE (03:53)
[2017-08-19] MEDS: GABAPENTIN 300 MG CAPSULE (FP) PO SCH ×3 (06:06→21:17)
[2017-08-19] MEDS: METHADONE 80 MG, METHADONE 20 MG PO SCH (06:06)
[2017-08-19] MEDS: PRENATAL VITAMINS W/ FOLIC ACID TABLET (FP) PO SCH (09:58)
[2017-08-19] MEDS: predniSONE 20 MG TABLET (UD) PO SCH (09:59)
[2017-08-19] MEDS: hydrOXYzine PAMOATE 50 MG CAPSULE (FP) PO PRN (10:00)
[2017-08-19] MEDS: HYDROCORTISONE 1% TOPICAL OINT 30 GM TUBE TP SCH ×4 (10:00→23:46)
[2017-08-19 17:39] LABS: HEMATOCRIT 33.9 % (35.4-49); HEMOGLOBIN 11.1 GM/dL (11.7-16.9); MCH 32.8 pg (25.7-33.7); MCHC 32.8 g/dl (32.0-35.9); MEAN CELL VOLUME 99.8 fl (80-96); MEAN PLT VOLUME 8.4 fl (7.5-11.1); PLATELET COUNT 625 K/MM3 (134-434); RDW 13.6 % (11.9-15.9)
[2017-08-19] MEDS: THIAMINE HCL 100 MG TABLET (FP) PO SCH (21:17)
[2017-08-20] MEDS ORDERED: METHADONE HCL 10 MG TABLET ONE (02:37)
[2017-08-20] MEDS ORDERED: METHADONE HCL 40 MG DISPERSABLE TABLET ONE (02:37)
[2017-08-20] MEDS: GABAPENTIN 300 MG CAPSULE (FP) PO SCH ×3 (06:20→21:18)
[2017-08-20] MEDS: METHADONE 80 MG, METHADONE 20 MG PO SCH (06:20)
[2017-08-20] MEDS: predniSONE 20 MG TABLET (UD) PO SCH (09:55)
[2017-08-20] MEDS: PRENATAL VITAMINS W/ FOLIC ACID TABLET (FP) PO SCH (09:55)
[2017-08-20] MEDS: HYDROCORTISONE 1% TOPICAL OINT 30 GM TUBE TP SCH ×4 (09:56→21:19)
--- NOTE | 2017-08-20 11:53 | PN ---
Psychiatric Progress Note Vital Signs: Vital Signs Period Temp Pulse Resp BP Sys/Graham Pulse Ox Last 24 Hr 97.6 F 52 18-18 133/96 Date of Session: 08/20/17 Chief Complaint:: progress update HPI: Patient is addressing alcohol, opioid dependence comorbid alcohol induced anxiety, Current Medications: Active Medications Generic Name Dose Route Start Last Admin Trade Name Freq PRN Reason Stop Dose Admin Acetaminophen 650 mg 08/14/17 21:45 Tylenol - PO Q4H PRN FEVER Al Hydroxide/Mg Hydroxide 30 ml 08/14/17 21:45 Mylanta Oral Suspension - PO Q6H PRN DYSPEPSIA Colloidal Oatmeal 1 applic 08/15/17 09:08 08/15/17 10:23 Aveeno Soap - TP 1 applic DAILY PRN Administration HYGEINE Eucalyptus/Menthol/Phenol/Sorbitol 1 each 08/14/17 21:45 Cepastat Lozenge - MM Q4H PRN SORE THROAT Gabapentin 600 mg 08/20/17 11:47 Neurontin - PO TID CHAPIS Guaifenesin 10 ml 08/14/17 21:45 Robitussin Dm - PO Q6H PRN COUGH Hydrocortisone 1 applic 08/16/17 10:00 08/20/17 09:56 Hytone 1% Ointment - TP 1 applic QID CHAPIS Administration Hydroxyzine Pamoate 50 mg 08/16/17 13:17 08/19/17 10:00 Vistaril - PO 50 mg Q4H PRN Administration ANXIETY Ibuprofen 400 mg 08/14/17 21:45 Motrin - PO Q6H PRN Pain level 4-6 Lactic Acid 1 applic 08/15/17 09:04 Lac-Hydrin 12 TP BID PRN DRY SKIN Loperamide HCl 4 mg 08/14/17 21:45 Imodium - PO Q6H PRN DIARRHEA Magnesium Citrate 300 ml 08/14/17 21:45 Citroma - PO Q48H PRN CONSTIPATION Magnesium Hydroxide 30 ml 08/14/17 21:45 08/17/17 06:52 Milk Of Magnesia - PO 30 ml DAILY PRN Administration CONSTIPATION Methadone HCl 80 mg/ Methadone 100 mg 08/15/17 09:20 08/20/17 06:20 HCl 20 mg PO 08/22/17 09:19 100 mg DAILY@0600 [facility] Administration Prednisone 40 mg 08/15/17 10:00 08/20/17 09:55 Deltasone - PO 40 mg DAILY CHAPIS Administration Multivit/Folic Acid/Iron 1 tab 08/15/17 10:00 08/20/17 09:55 Vitamins (Sjr) - PO 1 tab DAILY CHAPIS Administration Pseudoephedrine/Triprolidine 1 combo 08/14/17 21:45 Actifed - PO TID PRN NASAL CONGESTION Thiamine HCl 100 mg 08/14/17 22:00 08/19/17 21:17 Vitamin B1 - PO 100 mg HS CHAPIS Administration Medication(s) Change(s): increase Gabapentin 600 mg po tid. Current Side Effect: No Lab tests ordered: No Lab tests reviewed: Yes Provider note:: Patient was seen today, reports has been feeling irrritable, anxious and having mood swings, he reports was on Gabapentin 600 mg po tid and was effective, reviewed medications with the patient , side-effects and benefits discussed, will adjust medications, psycheducation and supports provided, will continue to monitor progress. 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
[2017-08-20] MEDS ORDERED: METHADONE HCL 40 MG DISPERSABLE TABLET PO SCH (12:50)
[2017-08-20] MEDS: THIAMINE HCL 100 MG TABLET (FP) PO SCH (21:18)
[2017-08-21] MEDS ORDERED: METHADONE HCL 10 MG TABLET ONE (05:21)
[2017-08-21] MEDS ORDERED: METHADONE HCL 40 MG DISPERSABLE TABLET ONE (05:22)
[2017-08-21] MEDS: METHADONE 80 MG, METHADONE 10 MG PO SCH (06:03)
[2017-08-21] MEDS: GABAPENTIN 300 MG CAPSULE (FP) PO SCH ×3 (06:03→21:17)
[2017-08-21] MEDS: AMMONIUM LACTATE 12% LOTION 225 GM BOTTLE TP PRN (07:47)
[2017-08-21] MEDS: predniSONE 20 MG TABLET (UD) PO SCH (10:05)
[2017-08-21] MEDS: PRENATAL VITAMINS W/ FOLIC ACID TABLET (FP) PO SCH (10:05)
[2017-08-21] MEDS: HYDROCORTISONE 1% TOPICAL OINT 30 GM TUBE TP SCH ×4 (10:08→21:19)
[2017-08-21] MEDS: hydrOXYzine PAMOATE 50 MG CAPSULE (FP) PO PRN (14:49)
[2017-08-21] MEDS: THIAMINE HCL 100 MG TABLET (FP) PO SCH (21:18)
[2017-08-22] MEDS ORDERED: METHADONE HCL 40 MG DISPERSABLE TABLET ONE (02:48)
[2017-08-22] MEDS ORDERED: METHADONE HCL 10 MG TABLET ONE (02:48)
[2017-08-22] MEDS: METHADONE 80 MG, METHADONE 10 MG PO SCH (06:04)
[2017-08-22] MEDS: GABAPENTIN 300 MG CAPSULE (FP) PO SCH ×3 (06:42→21:26)
[2017-08-22] MEDS: PRENATAL VITAMINS W/ FOLIC ACID TABLET (FP) PO SCH (09:51)
[2017-08-22] MEDS: predniSONE 20 MG TABLET (UD) PO SCH (09:51)
[2017-08-22] MEDS: MAGNESIUM HYDROX 2400MG/30ML ORAL SUSPENSION 30 ML CUP PO PRN (09:54)
[2017-08-22] MEDS: HYDROCORTISONE 1% TOPICAL OINT 30 GM TUBE TP SCH ×4 (09:55→21:27)
[2017-08-22] MEDS: THIAMINE HCL 100 MG TABLET (FP) PO SCH (21:26)
[2017-08-22] MEDS: hydrOXYzine PAMOATE 50 MG CAPSULE (FP) PO PRN (21:27)
[2017-08-23] MEDS ORDERED: METHADONE HCL 40 MG DISPERSABLE TABLET ONE (04:41)
[2017-08-23] MEDS ORDERED: METHADONE HCL 10 MG TABLET ONE (04:41)
[2017-08-23] MEDS: METHADONE 80 MG, METHADONE 10 MG PO SCH (05:46)
[2017-08-23] MEDS: GABAPENTIN 300 MG CAPSULE (FP) PO SCH ×3 (06:39→21:09)
[2017-08-23] MEDS: predniSONE 20 MG TABLET (UD) PO SCH (09:56)
[2017-08-23] MEDS: PRENATAL VITAMINS W/ FOLIC ACID TABLET (FP) PO SCH (09:56)
[2017-08-23] MEDS: HYDROCORTISONE 1% TOPICAL OINT 30 GM TUBE TP SCH ×4 (09:57→21:09)
[2017-08-23] MEDS: hydrOXYzine PAMOATE 50 MG CAPSULE (FP) PO PRN (19:34)
[2017-08-23] MEDS: THIAMINE HCL 100 MG TABLET (FP) PO SCH (21:09)
[2017-08-24] MEDS ORDERED: METHADONE HCL 40 MG DISPERSABLE TABLET ONE (05:55)
[2017-08-24] MEDS ORDERED: METHADONE HCL 10 MG TABLET ONE (05:55)
[2017-08-24] MEDS: METHADONE 80 MG, METHADONE 10 MG PO SCH (06:01)
[2017-08-24] MEDS: GABAPENTIN 300 MG CAPSULE (FP) PO SCH ×3 (06:01→21:04)
[2017-08-24] MEDS: AMMONIUM LACTATE 12% LOTION 225 GM BOTTLE TP PRN (06:42)
[2017-08-24] MEDS: COLLOIDAL OATMEAL 1 BAR EACH TP PRN (06:43)
[2017-08-24] MEDS: predniSONE 20 MG TABLET (UD) PO SCH (09:54)
[2017-08-24] MEDS: PRENATAL VITAMINS W/ FOLIC ACID TABLET (FP) PO SCH (09:54)
[2017-08-24] MEDS: HYDROCORTISONE 1% TOPICAL OINT 30 GM TUBE TP SCH ×4 (09:55→21:05)
[2017-08-24] MEDS: THIAMINE HCL 100 MG TABLET (FP) PO SCH (21:04)
[2017-08-25] MEDS ORDERED: METHADONE HCL 40 MG DISPERSABLE TABLET ONE (04:49)
[2017-08-25] MEDS ORDERED: METHADONE HCL 10 MG TABLET ONE (04:49)
[2017-08-25] MEDS: METHADONE 80 MG, METHADONE 10 MG PO SCH (06:06)
[2017-08-25] MEDS: GABAPENTIN 300 MG CAPSULE (FP) PO SCH ×3 (06:06→21:10)
[2017-08-25] MEDS: predniSONE 20 MG TABLET (UD) PO SCH (09:53)
[2017-08-25] MEDS: PRENATAL VITAMINS W/ FOLIC ACID TABLET (FP) PO SCH (09:53)
[2017-08-25] MEDS: HYDROCORTISONE 1% TOPICAL OINT 30 GM TUBE TP SCH ×4 (09:53→21:11)
[2017-08-25] MEDS: THIAMINE HCL 100 MG TABLET (FP) PO SCH (21:10)
[2017-08-26] MEDS ORDERED: METHADONE HCL 40 MG DISPERSABLE TABLET ONE (02:19)
[2017-08-26] MEDS ORDERED: METHADONE HCL 10 MG TABLET ONE (02:19)
[2017-08-26] MEDS: METHADONE 80 MG, METHADONE 10 MG PO SCH (06:03)
[2017-08-26] MEDS: GABAPENTIN 300 MG CAPSULE (FP) PO SCH ×3 (06:03→21:12)
[2017-08-26] MEDS: PRENATAL VITAMINS W/ FOLIC ACID TABLET (FP) PO SCH (09:58)
[2017-08-26] MEDS: HYDROCORTISONE 1% TOPICAL OINT 30 GM TUBE TP SCH ×4 (09:59→21:13)
[2017-08-26] MEDS: predniSONE 20 MG TABLET (UD) PO SCH (11:00)
[2017-08-26 13:48] LABS: ALBUMIN 3.8 g/dl (3.4-5.0); ANION GAP 8 (8-16); BLOOD UREA NITROGEN 35 mg/dL (7-18); CALCIUM 10.4 mg/dL (8.5-10.1); CHLORIDE 92 mmol/L (98-107); CO2 32 mmol/L (21-32); CREATININE 1.3 mg/dL (0.7-1.3); GLUCOSE,RANDOM 156 mg/dL (74-106); POTASSIUM 4.7 mmol/L (3.5-5.1); SGOT/AST 170 U/L (15-37); SGPT/ALT 267 U/L (12-78); SODIUM 132 mmol/L (136-145)
[2017-08-26] MEDS ORDERED: METHADONE HCL 40 MG DISPERSABLE TABLET PO SCH (13:48)
[2017-08-26 13:50] LABS: ALK PHOS 730 U/L (45-117); BILIRUBIN,TOTAL 1.1 mg/dL (0.2-1.0); TOT PROT 9.8 g/dl (6.4-8.2)
--- NOTE | 2017-08-26 13:50 | PN ---
[facility] Progress Note (SOAP) Subjective: c/o nodding off in meetingns from methadone 90mg daily would like to decrease dose to 80mg Objective: 08/26/17 13:49 Vital Signs - 24 hr 08/26/17 08/26/17 08/26/17 00:30 03:30 06:56 Temperature 97.8 F Pulse Rate 61 Respiratory 18 18 18 Rate Blood Pressure 132/76 Laboratory Tests 08/14/17 08/15/17 08/15/17 23:50 07:00 07:00 WBC 9.8 RBC 3.38 L Hgb 11.1 L Hct 33.2 L MCV 98.2 H MCH 32.7 MCHC 33.3 RDW 12.9 Plt Count 528 H MPV 8.4 Sodium 134 L Potassium 4.4 Chloride 98 Carbon Dioxide 27 Anion Gap 9 BUN 14 Creatinine 0.9 Creat Clearance w eGFR > 60 Random Glucose 94 D Calcium 9.3 Total Bilirubin 1.9 H D AST 130 H D ALT 88 H D Alkaline Phosphatase 998 H Total Protein 8.5 H Albumin 2.7 L Urine Color Yellow Urine Appearance Clear Urine pH 6.0 Ur Specific [place] 1.019 Urine Protein Negative Urine Glucose (UA) Negative Urine Ketones Negative Urine Blood Negative Urine Nitrite Negative Urine Bilirubin Negative Urine Urobilinogen Negative Ur Leukocyte Esterase Negative RPR Titer Hepatitis C Antibody HIV 1&2 Antibody Screen HIV P24 Antigen 08/15/17 08/15/17 08/15/17 07:00 07:00 07:00 WBC RBC Hgb Hct MCV MCH MCHC RDW Plt Count MPV Sodium Potassium Chloride Carbon Dioxide Anion Gap BUN Creatinine Creat Clearance w eGFR Random Glucose Calcium Total Bilirubin AST ALT Alkaline Phosphatase Total Protein Albumin Urine Color Urine Appearance Urine pH Ur Specific [place] Urine Protein Urine Glucose (UA) Urine Ketones Urine Blood Urine Nitrite Urine Bilirubin Urine Urobilinogen Ur Leukocyte Esterase RPR Titer Nonreactive Hepatitis C Antibody 0.1 HIV 1&2 Antibody Screen Negative HIV P24 Antigen Negative 08/19/17 08/19/17 09:00 09:00 WBC 15.0 H D RBC 3.40 L Hgb 11.1 L Hct 33.9 L MCV 99.8 H MCH 32.8 MCHC 32.8 RDW 13.6 Plt Count 625 H MPV 8.4 Sodium Potassium Chloride Carbon Dioxide Anion Gap BUN Creatinine Creat Clearance w eGFR Random Glucose Calcium Total Bilirubin 1.0 D AST 122 H ALT 122 H D Alkaline Phosphatase 839 H Total Protein Albumin Urine Color Urine Appearance Urine pH Ur Specific [place] Urine Protein Urine Glucose (UA) Urine Ketones Urine Blood Urine Nitrite Urine Bilirubin Urine Urobilinogen Ur Leukocyte Esterase RPR Titer Hepatitis C Antibody HIV 1&2 Antibody Screen HIV P24 Antigen anemia, elevated lfts Assessment: 08/26/17 13:50 decrease methadone to 80mg dailoy, mvi, ensure , nutirtional counseling
[2017-08-26] MEDS: TOLNAFTATE 1% CREAM 15 GM TUBE TP SCH ×2 (14:19→23:12)
--- NOTE | 2017-08-26 14:48 | PN ---
[facility] Progress Note Note: Patient was approached and asked to come to my office since his name was on list patients needed to be seen, patient reported that "I am alright now don't need to see you".
[2017-08-26] MEDS: THIAMINE HCL 100 MG TABLET (FP) PO SCH (21:12)
[2017-08-27] MEDS: hydrOXYzine PAMOATE 50 MG CAPSULE (FP) PO PRN (02:41)
[2017-08-27] MEDS ORDERED: METHADONE HCL 40 MG DISPERSABLE TABLET PO SCH (06:00)
[2017-08-27] MEDS: GABAPENTIN 300 MG CAPSULE (FP) PO SCH ×3 (06:23→21:02)
[2017-08-27] MEDS: predniSONE 20 MG TABLET (UD) PO SCH ×2 (09:49→20:06)
[2017-08-27] MEDS: HYDROCORTISONE 1% TOPICAL OINT 30 GM TUBE TP SCH ×4 (09:50→21:02)
[2017-08-27] MEDS: PRENATAL VITAMINS W/ FOLIC ACID TABLET (FP) PO SCH (09:50)
[2017-08-27] MEDS: TOLNAFTATE 1% CREAM 15 GM TUBE TP SCH ×2 (09:51→21:02)
--- NOTE | 2017-08-27 16:20 | PN ---
S Progress Note (SOAP) Subjective: will decrease methadone dose next week after evaluation, reeviewed labs with patient Objective: 08/27/17 16:17 Vital Signs - 24 hr 08/27/17 08/27/17 08/27/17 00:30 03:30 06:42 Temperature 97.9 F Pulse Rate 67 Respiratory 18 18 18 Rate Blood Pressure 129/78 Laboratory Tests 08/14/17 08/15/17 08/15/17 23:50 07:00 07:00 WBC 9.8 RBC 3.38 L Hgb 11.1 L Hct 33.2 L MCV 98.2 H MCH 32.7 MCHC 33.3 RDW 12.9 Plt Count 528 H MPV 8.4 Sodium 134 L Potassium 4.4 Chloride 98 Carbon Dioxide 27 Anion Gap 9 BUN 14 Creatinine 0.9 Creat Clearance w eGFR > 60 Random Glucose 94 D Calcium 9.3 Total Bilirubin 1.9 H D AST 130 H D ALT 88 H D Alkaline Phosphatase 998 H Total Protein 8.5 H Albumin 2.7 L Urine Color Yellow Urine Appearance Clear Urine pH 6.0 Ur Specific [place] 1.019 Urine Protein Negative Urine Glucose (UA) Negative Urine Ketones Negative Urine Blood Negative Urine Nitrite Negative Urine Bilirubin Negative Urine Urobilinogen Negative Ur Leukocyte Esterase Negative RPR Titer Hepatitis C Antibody HIV 1&2 Antibody Screen HIV P24 Antigen 08/15/17 08/15/17 08/15/17 07:00 07:00 07:00 WBC RBC Hgb Hct MCV MCH MCHC RDW Plt Count MPV Sodium Potassium Chloride Carbon Dioxide Anion Gap BUN Creatinine Creat Clearance w eGFR Random Glucose Calcium Total Bilirubin AST ALT Alkaline Phosphatase Total Protein Albumin Urine Color Urine Appearance Urine pH Ur Specific [place] Urine Protein Urine Glucose (UA) Urine Ketones Urine Blood Urine Nitrite Urine Bilirubin Urine Urobilinogen Ur Leukocyte Esterase RPR Titer Nonreactive Hepatitis C Antibody 0.1 HIV 1&2 Antibody Screen Negative HIV P24 Antigen Negative 08/19/17 08/19/17 08/26/17 09:00 09:00 09:30 WBC 15.0 H D RBC 3.40 L Hgb 11.1 L Hct 33.9 L MCV 99.8 H MCH 32.8 MCHC 32.8 RDW 13.6 Plt Count 625 H MPV 8.4 Sodium 132 L Potassium 4.7 Chloride 92 L Carbon Dioxide 32 Anion Gap 8 BUN 35 H D Creatinine 1.3 D Creat Clearance w eGFR > 60 Random Glucose 156 H D Calcium 10.4 H Total Bilirubin 1.0 D 1.1 H AST 122 H 170 H D ALT 122 H D 267 H D Alkaline Phosphatase 839 H 730 H Total Protein 9.8 H Albumin 3.8 D Urine Color Urine Appearance Urine pH Ur Specific [place] Urine Protein Urine Glucose (UA) Urine Ketones Urine Blood Urine Nitrite Urine Bilirubin Urine Urobilinogen Ur Leukocyte Esterase RPR Titer Hepatitis C Antibody HIV 1&2 Antibody Screen HIV P24 Antigen alk phos trending down Assessment: 08/27/17 16:18 advsed to d/c alchol use, increase fluids, will reevaluate next week. no fuhter labowrk.
[2017-08-27] MEDS: THIAMINE HCL 100 MG TABLET (FP) PO SCH (21:02)
[2017-08-28] MEDS: hydrOXYzine PAMOATE 50 MG CAPSULE (FP) PO PRN ×2 (02:47→23:13)
[2017-08-28] MEDS ORDERED: METHADONE HCL 40 MG DISPERSABLE TABLET ONE (05:59)
[2017-08-28] MEDS: GABAPENTIN 300 MG CAPSULE (FP) PO SCH ×3 (05:59→21:08)
[2017-08-28] MEDS ORDERED: METHADONE HCL 10 MG TABLET ONE (05:59)
[2017-08-28] MEDS ORDERED: METHADONE HCL 40 MG DISPERSABLE TABLET PO SCH (06:00)
[2017-08-28] MEDS: METHADONE 80 MG, METHADONE 10 MG PO SCH (06:00)
[2017-08-28] MEDS: PRENATAL VITAMINS W/ FOLIC ACID TABLET (FP) PO SCH (10:02)
[2017-08-28] MEDS: predniSONE 20 MG TABLET (UD) PO SCH (10:03)
[2017-08-28] MEDS: TOLNAFTATE 1% CREAM 15 GM TUBE TP SCH ×2 (10:04→21:08)
[2017-08-28] MEDS: HYDROCORTISONE 1% TOPICAL OINT 30 GM TUBE TP SCH ×4 (10:06→21:08)
[2017-08-28] MEDS ORDERED: SENNOSIDES 8.6MG TABLET (FP) PO ONE (14:02)
[2017-08-28] MEDS: DOCUSATE SODIUM 100 MG CAPSULE (FP) PO SCH (21:08)
[2017-08-28] MEDS: THIAMINE HCL 100 MG TABLET (FP) PO SCH (21:08)
[2017-08-29] MEDS ORDERED: METHADONE HCL 40 MG DISPERSABLE TABLET ONE (03:18)
[2017-08-29] MEDS ORDERED: METHADONE HCL 10 MG TABLET ONE (03:18)
[2017-08-29] MEDS: GABAPENTIN 300 MG CAPSULE (FP) PO SCH ×3 (05:48→21:06)
[2017-08-29] MEDS: METHADONE 80 MG, METHADONE 10 MG PO SCH (05:48)
[2017-08-29] MEDS: PRENATAL VITAMINS W/ FOLIC ACID TABLET (FP) PO SCH (09:55)
[2017-08-29] MEDS: predniSONE 20 MG TABLET (UD) PO SCH (09:56)
[2017-08-29] MEDS: HYDROCORTISONE 1% TOPICAL OINT 30 GM TUBE TP SCH ×4 (09:57→21:07)
[2017-08-29] MEDS: TOLNAFTATE 1% CREAM 15 GM TUBE TP SCH ×2 (09:57→21:07)
[2017-08-29] MEDS ORDERED: TUBERCULIN PPD 5 TU/0.1ML VIAL ID ONE (17:11)
[2017-08-29] MEDS: THIAMINE HCL 100 MG TABLET (FP) PO SCH (21:06)
[2017-08-29] MEDS: DOCUSATE SODIUM 100 MG CAPSULE (FP) PO SCH (21:07)
[2017-08-30] MEDS ORDERED: METHADONE HCL 40 MG DISPERSABLE TABLET ONE (03:26)
[2017-08-30] MEDS ORDERED: METHADONE HCL 10 MG TABLET ONE (03:26)
[2017-08-30] MEDS: GABAPENTIN 300 MG CAPSULE (FP) PO SCH ×3 (05:56→21:13)
[2017-08-30] MEDS: METHADONE 80 MG, METHADONE 10 MG PO SCH (05:56)
[2017-08-30] MEDS: TOLNAFTATE 1% CREAM 15 GM TUBE TP SCH ×2 (09:54→21:15)
[2017-08-30] MEDS: PRENATAL VITAMINS W/ FOLIC ACID TABLET (FP) PO SCH (09:54)
[2017-08-30] MEDS: predniSONE 20 MG TABLET (UD) PO SCH (09:55)
[2017-08-30] MEDS: HYDROCORTISONE 1% TOPICAL OINT 30 GM TUBE TP SCH ×4 (09:56→21:14)
[2017-08-30] MEDS: AMMONIUM LACTATE 12% LOTION 225 GM BOTTLE TP PRN (10:39)
[2017-08-30] MEDS: THIAMINE HCL 100 MG TABLET (FP) PO SCH (21:13)
[2017-08-30] MEDS: DOCUSATE SODIUM 100 MG CAPSULE (FP) PO SCH (21:13)
[2017-08-31] MEDS: hydrOXYzine PAMOATE 50 MG CAPSULE (FP) PO PRN ×2 (00:13→16:18)
[2017-08-31] MEDS ORDERED: METHADONE HCL 10 MG TABLET ONE (03:13)
[2017-08-31] MEDS ORDERED: METHADONE HCL 40 MG DISPERSABLE TABLET ONE (03:13)
[2017-08-31] MEDS: METHADONE 80 MG, METHADONE 10 MG PO SCH (06:06)
[2017-08-31] MEDS: GABAPENTIN 300 MG CAPSULE (FP) PO SCH ×3 (06:06→21:32)
[2017-08-31] MEDS: PRENATAL VITAMINS W/ FOLIC ACID TABLET (FP) PO SCH (10:08)
[2017-08-31] MEDS: predniSONE 20 MG TABLET (UD) PO SCH (10:09)
[2017-08-31] MEDS: HYDROCORTISONE 1% TOPICAL OINT 30 GM TUBE TP SCH ×4 (10:10→21:32)
[2017-08-31] MEDS: TOLNAFTATE 1% CREAM 15 GM TUBE TP SCH ×2 (10:10→21:32)
[2017-08-31] MEDS: DOCUSATE SODIUM 100 MG CAPSULE (FP) PO SCH (21:31)
[2017-08-31] MEDS: THIAMINE HCL 100 MG TABLET (FP) PO SCH (21:33)
[2017-09-01] MEDS ORDERED: METHADONE HCL 40 MG DISPERSABLE TABLET ONE (03:06)
[2017-09-01] MEDS ORDERED: METHADONE HCL 10 MG TABLET ONE (03:06)
[2017-09-01] MEDS: METHADONE 80 MG, METHADONE 10 MG PO SCH (05:57)
[2017-09-01] MEDS: GABAPENTIN 300 MG CAPSULE (FP) PO SCH ×3 (05:57→22:37)
[2017-09-01] MEDS: PRENATAL VITAMINS W/ FOLIC ACID TABLET (FP) PO SCH (10:14)
[2017-09-01] MEDS: predniSONE 20 MG TABLET (UD) PO SCH (10:14)
[2017-09-01] MEDS: HYDROCORTISONE 1% TOPICAL OINT 30 GM TUBE TP SCH ×4 (10:15→22:37)
[2017-09-01] MEDS: TOLNAFTATE 1% CREAM 15 GM TUBE TP SCH ×2 (10:15→22:37)
[2017-09-01] MEDS: AMMONIUM LACTATE 12% LOTION 225 GM BOTTLE TP PRN (10:17)
[2017-09-01] MEDS: DOCUSATE SODIUM 100 MG CAPSULE (FP) PO SCH (22:36)
[2017-09-01] MEDS: THIAMINE HCL 100 MG TABLET (FP) PO SCH (22:37)
[2017-09-02] MEDS ORDERED: METHADONE HCL 40 MG DISPERSABLE TABLET ONE (03:10)
[2017-09-02] MEDS ORDERED: METHADONE HCL 10 MG TABLET ONE (03:10)
[2017-09-02] MEDS: METHADONE 80 MG, METHADONE 10 MG PO SCH (05:47)
[2017-09-02] MEDS: GABAPENTIN 300 MG CAPSULE (FP) PO SCH ×3 (05:47→21:14)
[2017-09-02] MEDS: PRENATAL VITAMINS W/ FOLIC ACID TABLET (FP) PO SCH (10:39)
[2017-09-02] MEDS: predniSONE 20 MG TABLET (UD) PO SCH (10:39)
[2017-09-02] MEDS: TOLNAFTATE 1% CREAM 15 GM TUBE TP SCH ×2 (10:40→21:17)
[2017-09-02] MEDS: HYDROCORTISONE 1% TOPICAL OINT 30 GM TUBE TP SCH ×4 (10:40→21:15)
[2017-09-02] MEDS: AMMONIUM LACTATE 12% LOTION 225 GM BOTTLE TP PRN (10:40)
--- NOTE | 2017-09-02 12:23 | PN ---
[facility] Progress Note (SOAP) Subjective: patient wishes to decrease methadone dose again to 80 Objective: 09/02/17 12:22 Vital Signs (72 hours) 08/31/17 08/31/17 08/31/17 00:30 03:30 06:55 Temperature 97.9 F Pulse Rate 59 L Respiratory 16 16 18 Rate Blood Pressure labs reveiwed 122/86 09/01/17 09/01/17 09/02/17 03:30 06:49 00:30 Temperature 97.8 F Pulse Rate 63 Respiratory 16 16 16 Rate Blood Pressure 141/81 09/02/17 09/02/17 03:30 06:40 Temperature 97.9 F Pulse Rate 67 Respiratory 16 18 Rate Blood Pressure 118/69 Assessment: 09/02/17 12:22 decrease dose to 80m starting tomorrw, can decrease further if tolerated by 10mg prior to discharge
[2017-09-02] MEDS: THIAMINE HCL 100 MG TABLET (FP) PO SCH (21:14)
[2017-09-02] MEDS: DOCUSATE SODIUM 100 MG CAPSULE (FP) PO SCH (21:15)
[2017-09-02] MEDS: hydrOXYzine PAMOATE 50 MG CAPSULE (FP) PO PRN (21:18)
[2017-09-03] MEDS: METHADONE HCL 40 MG DISPERSABLE TABLET PO SCH (05:50)
[2017-09-03] MEDS: GABAPENTIN 300 MG CAPSULE (FP) PO SCH ×3 (05:50→21:08)
[2017-09-03] MEDS: COLLOIDAL OATMEAL 1 BAR EACH TP PRN (06:03)
[2017-09-03] MEDS: PRENATAL VITAMINS W/ FOLIC ACID TABLET (FP) PO SCH (10:21)
[2017-09-03] MEDS: predniSONE 20 MG TABLET (UD) PO SCH (10:21)
[2017-09-03] MEDS: HYDROCORTISONE 1% TOPICAL OINT 30 GM TUBE TP SCH ×4 (10:21→21:08)
[2017-09-03] MEDS: TOLNAFTATE 1% CREAM 15 GM TUBE TP SCH ×2 (10:22→21:09)
[2017-09-03] MEDS: hydrOXYzine PAMOATE 50 MG CAPSULE (FP) PO PRN (19:41)
[2017-09-03] MEDS: DOCUSATE SODIUM 100 MG CAPSULE (FP) PO SCH (21:08)
[2017-09-03] MEDS: THIAMINE HCL 100 MG TABLET (FP) PO SCH (21:08)
[2017-09-04] MEDS: METHADONE HCL 40 MG DISPERSABLE TABLET PO SCH (05:48)
[2017-09-04] MEDS: GABAPENTIN 300 MG CAPSULE (FP) PO SCH ×3 (05:48→21:18)
[2017-09-04] MEDS: predniSONE 20 MG TABLET (UD) PO SCH (09:58)
[2017-09-04] MEDS: PRENATAL VITAMINS W/ FOLIC ACID TABLET (FP) PO SCH (09:59)
[2017-09-04] MEDS: HYDROCORTISONE 1% TOPICAL OINT 30 GM TUBE TP SCH ×4 (09:59→21:19)
[2017-09-04] MEDS: TOLNAFTATE 1% CREAM 15 GM TUBE TP SCH ×2 (10:00→21:20)
[2017-09-04] MEDS: DOCUSATE SODIUM 100 MG CAPSULE (FP) PO SCH (21:18)
[2017-09-04] MEDS: THIAMINE HCL 100 MG TABLET (FP) PO SCH (21:19)
[2017-09-05] MEDS: GABAPENTIN 300 MG CAPSULE (FP) PO SCH ×3 (05:52→21:19)
[2017-09-05] MEDS: METHADONE HCL 40 MG DISPERSABLE TABLET PO SCH (05:53)
[2017-09-05] MEDS: predniSONE 20 MG TABLET (UD) PO SCH (09:58)
[2017-09-05] MEDS: PRENATAL VITAMINS W/ FOLIC ACID TABLET (FP) PO SCH (09:58)
[2017-09-05] MEDS: TOLNAFTATE 1% CREAM 15 GM TUBE TP SCH ×2 (09:58→21:19)
[2017-09-05] MEDS: HYDROCORTISONE 1% TOPICAL OINT 30 GM TUBE TP SCH ×4 (09:59→21:19)
[2017-09-05] MEDS: hydrOXYzine PAMOATE 50 MG CAPSULE (FP) PO PRN ×2 (10:25→18:06)
[2017-09-05] MEDS: DOCUSATE SODIUM 100 MG CAPSULE (FP) PO SCH (21:19)
[2017-09-05] MEDS: THIAMINE HCL 100 MG TABLET (FP) PO SCH (21:19)
[2017-09-06] MEDS: METHADONE HCL 40 MG DISPERSABLE TABLET PO SCH (05:49)
[2017-09-06] MEDS: GABAPENTIN 300 MG CAPSULE (FP) PO SCH ×3 (05:49→21:37)
[2017-09-06] MEDS: PRENATAL VITAMINS W/ FOLIC ACID TABLET (FP) PO SCH (09:51)
[2017-09-06] MEDS: predniSONE 20 MG TABLET (UD) PO SCH (09:51)
[2017-09-06] MEDS: TOLNAFTATE 1% CREAM 15 GM TUBE TP SCH ×2 (09:52→21:38)
[2017-09-06] MEDS: HYDROCORTISONE 1% TOPICAL OINT 30 GM TUBE TP SCH ×4 (09:52→21:38)
--- NOTE | 2017-09-06 10:59 | PN ---
Psychiatric Progress Note Vital Signs: Vital Signs Period Temp Pulse Resp BP Sys/Graham Pulse Ox Last 24 Hr 98.5 F 57 16-18 124/72 Date of Session: 09/06/17 Chief Complaint:: "feeling depressed" HPI: Patient is addressing alcohol, opioid dependence comorbid alcohol induced anxiety, ROS: WNL Current Medications: Active Medications Generic Name Dose Route Start Last Admin Trade Name Freq PRN Reason Stop Dose Admin Al Hydroxide/Mg Hydroxide 30 ml 08/14/17 21:45 08/23/17 04:13 Mylanta Oral Suspension - PO 30 ml Q6H PRN Administration DYSPEPSIA Bupropion HCl 100 mg 09/07/17 10:00 Wellbutrin - PO DAILY CHAPIS Colloidal Oatmeal 1 applic 08/15/17 09:08 09/03/17 06:03 Aveeno Soap - TP 1 applic DAILY PRN Administration HYGEINE Docusate Sodium 300 mg 08/28/17 22:00 09/05/17 21:19 Colace - PO 300 mg HS CHAPIS Administration Eucalyptus/Menthol/Phenol/Sorbitol 1 each 08/14/17 21:45 Cepastat Lozenge - MM Q4H PRN SORE THROAT Gabapentin 600 mg 08/20/17 14:00 09/06/17 05:49 Neurontin - PO 600 mg TID CHAPIS Administration Guaifenesin 10 ml 08/14/17 21:45 Robitussin Dm - PO Q6H PRN COUGH Hydrocortisone 1 applic 08/16/17 10:00 09/06/17 09:52 Hytone 1% Ointment - TP Not Given QID CHAPIS Hydroxyzine Pamoate 50 mg 08/16/17 13:17 09/05/17 18:06 Vistaril - PO 50 mg Q4H PRN Administration ANXIETY Ibuprofen 400 mg 08/14/17 21:45 08/23/17 18:48 Motrin - PO 400 mg Q6H PRN Administration Pain level 4-6 Lactic Acid 1 applic 08/15/17 09:04 09/02/17 10:40 Lac-Hydrin 12 TP 1 applic BID PRN Administration DRY SKIN Loperamide HCl 4 mg 08/14/17 21:45 Imodium - PO Q6H PRN DIARRHEA Magnesium Citrate 300 ml 08/14/17 21:45 Citroma - PO Q48H PRN CONSTIPATION Magnesium Hydroxide 30 ml 08/14/17 21:45 08/22/17 09:54 Milk Of Magnesia - PO 30 ml DAILY PRN Administration CONSTIPATION Methadone HCl 80 mg 09/03/17 06:00 09/06/17 05:49 Dolophine - PO 09/09/17 05:59 80 mg DAILY@0600 CHAPIS Administration Mirtazapine 15 mg 09/06/17 22:00 Remeron - PO HS CHAPIS Prednisone 30 mg 08/27/17 19:00 09/06/17 09:51 Deltasone - PO 30 mg DAILY CHAPIS Administration Multivit/Folic Acid/Iron 1 tab 08/15/17 10:00 09/06/17 09:51 Vitamins (Sjr) - PO 1 tab DAILY CHAPIS Administration Pseudoephedrine/Triprolidine 1 combo 08/14/17 21:45 Actifed - PO TID PRN NASAL CONGESTION Thiamine HCl 100 mg 08/14/17 22:00 09/05/17 21:19 Vitamin B1 - PO 100 mg HS CHAPIS Administration Tolnaftate 1 applic 08/26/17 14:00 09/06/17 09:52 Tinactin 1% Cream - TP Not Given BID [facility] Medication(s) Change(s): add Remeron 15 mg po nightly, Wellbutrin 100 mg po daily. Current Side Effect: No Lab tests ordered: No Lab tests reviewed: Yes Provider note:: Patient was seen today, he reports he has been depressed and mood swings, he feels lonely and states has no one in his life(G-F), reports was adddopted at age 1, met his biological mother once, describes his childhood as fair, close to addopted mother who currently in [place], some contact with his siblings, states he cannot go back to live with his sister "they kicked me out" . Desribes his mood as not stable, easlilly gets upset. Supportive therapy provided. Discussed with the patient indications and properties of Wellbutrin and Remeron, recommende to start, patient agreed with careplan. Total face to face time:: 35 Mental Status Exam - Mental Status Exam Alert and Oriented to: Time, Place, Person Cognitive Function: Good Patient Appearance: Well Groomed Mood: Depressed, Sad Affect: Appropriate, Mood Congruent Patient Behavior: Appropriate, Cooperative Speech Pattern: Clear, Appropriate Voice Loudness: Normal Thought Process: Intact, Circumstantial Thought Disorder: Not Present Hallucinations: Denies Suicidal Ideation: Denies Homicidal Ideation: Denies Insight/Judgement: Fair Sleep: Poorly, Difficulty falling asleep Appetite: Fair Muscle strength/Tone: Normal Gait/Station: Normal Psychiatric Treatment Plan - Problem List (3) Anemia Qualifiers: Anemia type: B12 deficiency
[2017-09-06] MEDS: MIRTAZAPINE 15 MG TABLET (FP) PO SCH (21:37)
[2017-09-06] MEDS: THIAMINE HCL 100 MG TABLET (FP) PO SCH (21:37)
[2017-09-06] MEDS: DOCUSATE SODIUM 100 MG CAPSULE (FP) PO SCH (21:37)
[2017-09-07] MEDS: GABAPENTIN 300 MG CAPSULE (FP) PO SCH ×3 (06:14→21:42)
[2017-09-07] MEDS: METHADONE HCL 40 MG DISPERSABLE TABLET PO SCH (06:14)
[2017-09-07] MEDS: COLLOIDAL OATMEAL 1 BAR EACH TP PRN (06:47)
[2017-09-07] MEDS: predniSONE 20 MG TABLET (UD) PO SCH (09:43)
[2017-09-07] MEDS: buPROPion HCL 100 MG TABLET PO SCH (09:43)
[2017-09-07] MEDS: PRENATAL VITAMINS W/ FOLIC ACID TABLET (FP) PO SCH (09:44)
[2017-09-07] MEDS: TOLNAFTATE 1% CREAM 15 GM TUBE TP SCH ×2 (09:45→21:50)
[2017-09-07] MEDS: HYDROCORTISONE 1% TOPICAL OINT 30 GM TUBE TP SCH ×4 (09:46→21:50)
[2017-09-07] MEDS: THIAMINE HCL 100 MG TABLET (FP) PO SCH (21:42)
[2017-09-07] MEDS: DOCUSATE SODIUM 100 MG CAPSULE (FP) PO SCH (21:43)
[2017-09-07] MEDS: MIRTAZAPINE 15 MG TABLET (FP) PO SCH (21:51)
[2017-09-08] MEDS: GABAPENTIN 300 MG CAPSULE (FP) PO SCH ×3 (05:51→21:13)
[2017-09-08] MEDS: METHADONE HCL 40 MG DISPERSABLE TABLET PO SCH (05:51)
[2017-09-08] MEDS: buPROPion HCL 100 MG TABLET PO SCH (09:49)
[2017-09-08] MEDS: predniSONE 20 MG TABLET (UD) PO SCH (09:49)
[2017-09-08] MEDS: PRENATAL VITAMINS W/ FOLIC ACID TABLET (FP) PO SCH (09:49)
[2017-09-08] MEDS: HYDROCORTISONE 1% TOPICAL OINT 30 GM TUBE TP SCH ×4 (09:50→21:13)
[2017-09-08] MEDS: TOLNAFTATE 1% CREAM 15 GM TUBE TP SCH ×2 (09:50→21:14)
[2017-09-08] MEDS: AMMONIUM LACTATE 12% LOTION 225 GM BOTTLE TP PRN (09:51)
[2017-09-08] MEDS: MIRTAZAPINE 15 MG TABLET (FP) PO SCH (21:13)
[2017-09-08] MEDS: THIAMINE HCL 100 MG TABLET (FP) PO SCH (21:13)
[2017-09-08] MEDS: DOCUSATE SODIUM 100 MG CAPSULE (FP) PO SCH (21:13)
[2017-09-09] MEDS: hydrOXYzine PAMOATE 50 MG CAPSULE (FP) PO PRN (00:09)
[2017-09-09] MEDS: GABAPENTIN 300 MG CAPSULE (FP) PO SCH ×3 (05:58→21:11)
[2017-09-09] MEDS: METHADONE HCL 40 MG DISPERSABLE TABLET PO SCH (05:58)
[2017-09-09] MEDS: predniSONE 20 MG TABLET (UD) PO SCH (10:07)
[2017-09-09] MEDS: buPROPion HCL 100 MG TABLET PO SCH (10:07)
[2017-09-09] MEDS: PRENATAL VITAMINS W/ FOLIC ACID TABLET (FP) PO SCH (10:08)
[2017-09-09] MEDS: HYDROCORTISONE 1% TOPICAL OINT 30 GM TUBE TP SCH ×4 (10:08→21:12)
[2017-09-09] MEDS: TOLNAFTATE 1% CREAM 15 GM TUBE TP SCH ×2 (10:08→21:12)
[2017-09-09] MEDS: AMMONIUM LACTATE 12% LOTION 225 GM BOTTLE TP PRN (10:10)
[2017-09-09] MEDS: MIRTAZAPINE 15 MG TABLET (FP) PO SCH (21:11)
[2017-09-09] MEDS: DOCUSATE SODIUM 100 MG CAPSULE (FP) PO SCH (21:11)
[2017-09-09] MEDS: THIAMINE HCL 100 MG TABLET (FP) PO SCH (21:11)
[2017-09-10] MEDS: GABAPENTIN 300 MG CAPSULE (FP) PO SCH ×3 (05:56→21:12)
[2017-09-10] MEDS: METHADONE HCL 40 MG DISPERSABLE TABLET PO SCH (05:56)
[2017-09-10] MEDS: predniSONE 20 MG TABLET (UD) PO SCH (09:44)
[2017-09-10] MEDS: PRENATAL VITAMINS W/ FOLIC ACID TABLET (FP) PO SCH (09:44)
[2017-09-10] MEDS: buPROPion HCL 100 MG TABLET PO SCH (09:44)
[2017-09-10] MEDS: HYDROCORTISONE 1% TOPICAL OINT 30 GM TUBE TP SCH ×5 (09:45→21:11)
[2017-09-10] MEDS: AMMONIUM LACTATE 12% LOTION 225 GM BOTTLE TP PRN (09:45)
[2017-09-10] MEDS: TOLNAFTATE 1% CREAM 15 GM TUBE TP SCH ×2 (09:45→21:12)
--- NOTE | 2017-09-10 09:58 | PN ---
[facility] (SOAP[facility] Subjective: ITCHING IMPORVED, COMFORTABEL ON METHADONE DOSE OF 80MG, DISCUSSED NEED TO CONTINUE DECREASE IN PREDNISONE Objective: 09/10/17 09:56 Vital Signs - 24 hr 09/10/17 09/10/17 09/10/17 00:30 03:30 06:36 Temperature 98.0 F Pulse Rate 65 Respiratory 16 16 18 Rate Blood Pressure 133/76 Laboratory Tests 08/14/17 08/15/17 08/15/17 23:50 07:00 07:00 WBC 9.8 RBC 3.38 L Hgb 11.1 L Hct 33.2 L MCV 98.2 H MCH 32.7 MCHC 33.3 RDW 12.9 Plt Count 528 H MPV 8.4 Sodium 134 L Potassium 4.4 Chloride 98 Carbon Dioxide 27 Anion Gap 9 BUN 14 Creatinine 0.9 Creat Clearance w eGFR > 60 POC Glucometer Random Glucose 94 D Calcium 9.3 Total Bilirubin 1.9 H D AST 130 H D ALT 88 H D Alkaline Phosphatase 998 H Total Protein 8.5 H Albumin 2.7 L Urine Color Yellow Urine Appearance Clear Urine pH 6.0 Ur Specific [place] 1.019 Urine Protein Negative Urine Glucose (UA) Negative Urine Ketones Negative Urine Blood Negative Urine Nitrite Negative Urine Bilirubin Negative Urine Urobilinogen Negative Ur Leukocyte Esterase Negative RPR Titer Hepatitis C Antibody HIV 1&2 Antibody Screen HIV P24 Antigen 08/15/17 08/15/17 08/15/17 07:00 07:00 07:00 WBC RBC Hgb Hct MCV MCH MCHC RDW Plt Count MPV Sodium Potassium Chloride Carbon Dioxide Anion Gap BUN Creatinine Creat Clearance w eGFR POC Glucometer Random Glucose Calcium Total Bilirubin AST ALT Alkaline Phosphatase Total Protein Albumin Urine Color Urine Appearance Urine pH Ur Specific [place] Urine Protein Urine Glucose (UA) Urine Ketones Urine Blood Urine Nitrite Urine Bilirubin Urine Urobilinogen Ur Leukocyte Esterase RPR Titer Nonreactive Hepatitis C Antibody 0.1 HIV 1&2 Antibody Screen Negative HIV P24 Antigen Negative 08/19/17 08/19/17 08/26/17 09:00 09:00 09:30 WBC 15.0 H D RBC 3.40 L Hgb 11.1 L Hct 33.9 L MCV 99.8 H MCH 32.8 MCHC 32.8 RDW 13.6 Plt Count 625 H MPV 8.4 Sodium 132 L Potassium 4.7 Chloride 92 L Carbon Dioxide 32 Anion Gap 8 BUN 35 H D Creatinine 1.3 D Creat Clearance w eGFR > 60 POC Glucometer Random Glucose 156 H D Calcium 10.4 H Total Bilirubin 1.0 D 1.1 H AST 122 H 170 H D ALT 122 H D 267 H D Alkaline Phosphatase 839 H 730 H Total Protein 9.8 H Albumin 3.8 D Urine Color Urine Appearance Urine pH Ur Specific [place] Urine Protein Urine Glucose (UA) Urine Ketones Urine Blood Urine Nitrite Urine Bilirubin Urine Urobilinogen Ur Leukocyte Esterase RPR Titer Hepatitis C Antibody HIV 1&2 Antibody Screen HIV P24 Antigen 09/10/17 06:36 WBC RBC Hgb Hct MCV MCH MCHC RDW Plt Count MPV Sodium Potassium Chloride Carbon Dioxide Anion Gap BUN Creatinine Creat Clearance w eGFR POC Glucometer 208 Random Glucose Calcium Total Bilirubin AST ALT Alkaline Phosphatase Total Protein Albumin Urine Color Urine Appearance Urine pH Ur Specific [place] Urine Protein Urine Glucose (UA) Urine Ketones Urine Blood Urine Nitrite Urine Bilirubin Urine Urobilinogen Ur Leukocyte Esterase RPR Titer Hepatitis C Antibody HIV 1&2 Antibody Screen HIV P24 Antigen NILD ANEMIA NAD MACROCYTOSIS BECASUE OF ALCOHOL USE , ELEVATED GLUCOSE ON PREDNISON Assessment: 09/10/17 09:57 CONTACT DERMATITIS - CONT [id number] PREDNISONE TO 20MG DAILY , [facility] mm[facility] AND pcp FOR MEDICAL CONCERNS, ADVISED OF ABNORMAL LABS WHICH NEED TO BE REPEATED
[2017-09-10] MEDS ORDERED: predniSONE 20 MG TABLET (UD) PO SCH (10:00)
[2017-09-10] MEDS: hydrOXYzine PAMOATE 50 MG CAPSULE (FP) PO PRN (18:07)
[2017-09-10] MEDS: THIAMINE HCL 100 MG TABLET (FP) PO SCH (21:11)
[2017-09-10] MEDS: DOCUSATE SODIUM 100 MG CAPSULE (FP) PO SCH (21:12)
[2017-09-10] MEDS: MIRTAZAPINE 15 MG TABLET (FP) PO SCH (21:12)
[2017-09-11] MEDS: METHADONE HCL 40 MG DISPERSABLE TABLET PO SCH (05:48)
[2017-09-11] MEDS: GABAPENTIN 300 MG CAPSULE (FP) PO SCH (05:48)
[2017-09-11 06:49] VITALS: BP 132/78; PULSE 73; TEMP 98.2
[2017-09-11] MEDS ORDERED: predniSONE 20 MG TABLET (UD) PO SCH (10:00)
--- NOTE | 2017-09-11 10:01 | PN ---
Psychiatric Progress Note Vital Signs: Vital Signs Period Temp Pulse Resp BP Sys/Graham Pulse Ox Last 24 Hr 98.2 F 73 16-16 132/78 Date of Session: 09/11/17 Chief Complaint:: discharge visit HPI: Patient is addressing alcohol, opioid dependence comorbid alcohol induced anxiety. ROS: WNL Current Medications: Active Medications Generic Name Dose Route Start Last Admin Trade Name Freq PRN Reason Stop Dose Admin Al Hydroxide/Mg Hydroxide 30 ml 08/14/17 21:45 08/23/17 04:13 Mylanta Oral Suspension - PO 30 ml Q6H PRN Administration DYSPEPSIA Bupropion HCl 100 mg 09/07/17 10:00 09/10/17 09:44 Wellbutrin - PO 100 mg DAILY CHAPIS Administration Colloidal Oatmeal 1 applic 08/15/17 09:08 09/07/17 06:47 Aveeno Soap - TP 1 applic DAILY PRN Administration HYGEINE Docusate Sodium 300 mg 08/28/17 22:00 09/10/17 21:12 Colace - PO 300 mg HS CHAPIS Administration Eucalyptus/Menthol/Phenol/Sorbitol 1 each 08/14/17 21:45 Cepastat Lozenge - MM Q4H PRN SORE THROAT Gabapentin 600 mg 08/20/17 14:00 09/11/17 05:48 Neurontin - PO 600 mg TID CHAPIS Administration Guaifenesin 10 ml 08/14/17 21:45 Robitussin Dm - PO Q6H PRN COUGH Hydrocortisone 1 applic 08/16/17 10:00 09/10/17 21:11 Hytone 1% Ointment - TP Not Given QID CHAPIS Hydroxyzine Pamoate 50 mg 08/16/17 13:17 09/10/17 18:07 Vistaril - PO 50 mg Q4H PRN Administration ANXIETY Ibuprofen 400 mg 08/14/17 21:45 08/23/17 18:48 Motrin - PO 400 mg Q6H PRN Administration Pain level 4-6 Lactic Acid 1 applic 08/15/17 09:04 09/10/17 09:45 Lac-Hydrin 12 TP 1 applic BID PRN Administration DRY SKIN Loperamide HCl 4 mg 08/14/17 21:45 Imodium - PO Q6H PRN DIARRHEA Magnesium Citrate 300 ml 08/14/17 21:45 Citroma - PO Q48H PRN CONSTIPATION Magnesium Hydroxide 30 ml 08/14/17 21:45 08/22/17 09:54 Milk Of Magnesia - PO 30 ml DAILY PRN Administration CONSTIPATION Methadone HCl 80 mg 09/09/17 06:00 09/11/17 05:48 Dolophine - PO 80 mg DAILY@0600 CHAPIS Administration Mirtazapine 15 mg 09/06/17 22:00 09/10/17 21:12 Remeron - PO Not Given HS CHAPIS Prednisone 20 mg 09/11/17 10:00 Deltasone - PO DAILY CHAPIS Multivit/Folic Acid/Iron 1 tab 08/15/17 10:00 09/10/17 09:44 Vitamins (Sjr) - PO 1 tab DAILY CHAPIS Administration Pseudoephedrine/Triprolidine 1 combo 08/14/17 21:45 Actifed - PO TID PRN NASAL CONGESTION Thiamine HCl 100 mg 08/14/17 22:00 09/10/17 21:11 Vitamin B1 - PO 100 mg HS CHAPIS Administration Tolnaftate 1 applic 08/26/17 14:00 09/10/17 21:12 Tinactin 1% Cream - TP Not Given BID CHAPIS Current Side Effect: No Lab tests ordered: No Lab tests reviewed: Yes Provider note:: Patient has completed today this rehabilitation program and met his goals, will sean to address his issues at his [facility] program.He understands the negative impact of his addiction on his major life areas and verbalized resolution to stay sober and adherent to everuy aspects of his aftercare plans. Medications(GAbapenint, Wellbutrin and Remeron) well tolaretd, scripts for 30 days and 1 ref. provided. Patient will f/u for his psychiatric issues at [facility]. Stable for discharge today. Total face to face time:: 20 Mental Status Exam - Mental Status Exam Alert and Oriented to: Time, Place, Person Cognitive Function: Good Patient Appearance: Well Groomed Mood: Hopeful Affect: Appropriate, Mood Congruent Patient Behavior: Appropriate, Cooperative Speech Pattern: Clear, Appropriate Voice Loudness: Normal Thought Process: Intact, Goal Oriented Thought Disorder: Not Present Hallucinations: Denies Suicidal Ideation: Denies Homicidal Ideation: Denies Insight/Judgement: Fair Sleep: Fair Appetite: Good Muscle strength/Tone: Normal Gait/Station: Normal Psychiatric Treatment Plan - Problem List (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
[2017-09-11] MEDS: buPROPion HCL 100 MG TABLET PO SCH (10:33)
[2017-09-11] MEDS: PRENATAL VITAMINS W/ FOLIC ACID TABLET (FP) PO SCH (10:34)
[2017-09-11] MEDS: HYDROCORTISONE 1% TOPICAL OINT 30 GM TUBE TP SCH (10:34)
[2017-09-11] MEDS: TOLNAFTATE 1% CREAM 15 GM TUBE TP SCH (10:34)
--- NOTE | 2017-09-12 13:38 | PN ---
[facility] Progress Note Note: patient scripts were re-transferred to the different pharmacy because of restricted policy of the his insurance.
== END 2017-09-11 11:10 | disposition home or self-care (01) | DRG 772 ==
LOC: YASAS 15:55 → Y5N 22:12
PROVIDERS: ADMIT Psychiatry & Neurology Psychiatry; ATTEND Psychiatry & Neurology Psychiatry
PROC: HZ42ZZZ Group Counseling for Substance Abuse Treatment, Cognitive-Behavioral (ICD-10-PCS; principal; 2017-08-14)
DX: F11.20 Opioid dependence, uncomplicated (principal); F10.20 Alcohol dependence, uncomplicated; F10.280 Alcohol dependence with alcohol-induced anxiety disorder; D51.9 Vitamin B12 deficiency anemia, unspecified; L25.9 Unspecified contact dermatitis, unspecified cause
CPT/HCPCS: 36415; 80053; 81003; 82247; 82962; 84075; 84450; 84460; 85027; 86593; 86803; 87389; 93005; 93010

== ENCOUNTER 2021-09-04 14:21 | Inpatient (IN) | payer OTHER ==
[2021-09-04] MEDS ORDERED: NICOTINE 10 MG CARTRIDGE (INHALER) IH PRN (16:59)
[2021-09-04] MEDS ORDERED: MENTHOL/PHENOL 1 EACH UD MM PRN (16:59)
[2021-09-04] MEDS ORDERED: MAG HYDROX/AL HYDROX/SIMETH 30 ML UNIT-DOSE CUP PO PRN (16:59)
[2021-09-04] MEDS ORDERED: BISMUTH SUBSALICYLATE 524 MG/30 ML PO PRN (16:59)
[2021-09-04] MEDS ORDERED: METHOCARBAMOL 500 MG TABLET PO PRN (16:59)
[2021-09-04] MEDS ORDERED: MAGNESIUM CITRATE 300 ML BOTTLE PO PRN (16:59)
[2021-09-04] MEDS ORDERED: IBUPROFEN 400 MG TABLET (FP) PO PRN (16:59)
[2021-09-04] MEDS ORDERED: ACETAMINOPHEN 325 MG TABLET (FP) PO PRN ×2 (16:59)
[2021-09-04] MEDS ORDERED: MAGNESIUM HYDROX 2400MG/30ML ORAL SUSPENSION 30 ML CUP PO PRN (16:59)
[2021-09-04] MEDS ORDERED: ONDANSETRON *ODT* 4 MG TABLET SL PRN (16:59)
[2021-09-04] MEDS ORDERED: THIAMINE HCL 100 MG TABLET (FP) PO SCH (22:00)
[2021-09-04] MEDS ORDERED: MELATONIN 5 MG TABLETS PO SCH (22:00)
[2021-09-05 00:14] VITALS: BMI 23.6
[2021-09-05] MEDS: hydrOXYzine PAMOATE 25 MG CAPSULE (FP) PO SCH ×4 (01:40→10:12)
[2021-09-05] MEDS ORDERED: PRENATAL VITAMINS W/ FOLIC ACID TABLET (FP) PO SCH (10:00)
[2021-09-05] MEDS ORDERED: methaDONE HCL 40 MG DISPERSABLE TABLET PO ONE (11:48)
[2021-09-05 11:58] LABS: HEMATOCRIT 26.7 % (35.4-49); MCHC 33.6 g/dl (32.0-35.9); MEAN CELL VOLUME 98.1 fl (80-96); MEAN PLT VOLUME 8.7 fl (7.5-11.1); PLATELET COUNT 331 10^3/uL (134-434); RBC 2.72 M/mm3 (4.00-5.60); RDW 13.7 % (11.9-15.9); WHITE BLOOD COUNT 10.3 K/mm3 (4.0-10.0)
[2021-09-05 13:05] VITALS: BP 135/89; PULSE 109; TEMP 98.6
[2021-09-05 13:20] LABS: ALBUMIN 2.4 g/dl (3.4-5.0); BLOOD UREA NITROGEN 14.7 mg/dL (7-18); CALCIUM 9.4 mg/dL (8.5-10.1)
[2021-09-05 13:23] LABS: BILIRUBIN,TOTAL 3.9 mg/dL (0.2-1); TOT PROT 8.9 g/dl (6.4-8.2)
== END 2021-09-05 13:45 | disposition home or self-care (01) | DRG 773 ==
LOC: YASAS 14:21 → Y3N 21:23
PROVIDERS: ADMIT Allergy & Immunology; ATTEND Allergy & Immunology
PROC: HZ2ZZZZ Detoxification Services for Substance Abuse Treatment (ICD-10-PCS; principal; 2021-09-04)
DX: F11.23 Opioid dependence with withdrawal (principal); F13.20 Sedative, hypnotic or anxiolytic dependence, uncomplicated; F19.24 Other psychoactive substance dependence with psychoactive substance-induced mood disorder; F41.8 Other specified anxiety disorders; F32.A Depression, unspecified; K74.60 Unspecified cirrhosis of liver; K75.4 Autoimmune hepatitis; G47.00 Insomnia, unspecified; D64.9 Anemia, unspecified; L30.9 Dermatitis, unspecified; R74.8 Abnormal levels of other serum enzymes; Z91.018 Allergy to other foods; Z56.0 Unemployment, unspecified; Z59.00 Homelessness unspecified
CPT/HCPCS: 36415; 80053; 85027; 86780; 93005; 93010; C9803; U0003; U0005

== ENCOUNTER 2021-09-25 15:05 | Inpatient (IN) | payer OTHER ==
[2021-09-25 16:52] VITALS: BMI 23.7
[2021-09-25] MEDS ORDERED: MENTHOL/PHENOL 1 EACH UD MM PRN (17:38)
[2021-09-25] MEDS ORDERED: ACETAMINOPHEN 325 MG TABLET (FP) PO PRN ×2 (17:38)
[2021-09-25] MEDS ORDERED: ONDANSETRON *ODT* 4 MG TABLET SL PRN (17:38)
[2021-09-25] MEDS ORDERED: MAGNESIUM CITRATE 300 ML BOTTLE PO PRN (17:38)
[2021-09-25] MEDS ORDERED: MAG HYDROX/AL HYDROX/SIMETH 30 ML UNIT-DOSE CUP PO PRN (17:38)
[2021-09-25] MEDS ORDERED: LOPERAMIDE HCL 2 MG CAPSULE PO PRN (17:38)
[2021-09-25] MEDS ORDERED: MAGNESIUM HYDROX 2400MG/30ML ORAL SUSPENSION 30 ML CUP PO PRN (17:38)
[2021-09-25] MEDS ORDERED: BISMUTH SUBSALICYLATE 524 MG/30 ML PO PRN (17:38)
[2021-09-25] MEDS ORDERED: P-EPHED 60MG/TRIPROLIDI 2.5MG TABLET PO PRN (17:42)
[2021-09-25] MEDS: hydrOXYzine PAMOATE 25 MG CAPSULE (FP) PO PRN (22:09)
[2021-09-25] MEDS: THIAMINE HCL 100 MG TABLET (FP) PO SCH (22:09)
[2021-09-25] MEDS: diazePAM 5 MG TABLET PO SCH (22:09)
[2021-09-25] MEDS: MELATONIN 5 MG TABLETS PO PRN (22:10)
[2021-09-26] MEDS: diazePAM 5 MG TABLET PO SCH ×4 (05:11→22:26)
[2021-09-26] MEDS: hydrOXYzine PAMOATE 25 MG CAPSULE (FP) PO PRN ×4 (05:15→17:36)
[2021-09-26] MEDS: IBUPROFEN 400 MG TABLET (FP) PO PRN (07:22)
[2021-09-26] MEDS ORDERED: methaDONE HCL 10 MG TABLET ONE (09:43)
[2021-09-26] MEDS ORDERED: methaDONE HCL 40 MG DISPERSABLE TABLET ONE (09:44)
[2021-09-26] MEDS: PRENATAL VITAMINS W/ FOLIC ACID TABLET (FP) PO SCH (09:48)
[2021-09-26] MEDS: SERTRALINE HCL 50 MG TABLET (FP) PO SCH (09:48)
[2021-09-26] MEDS ORDERED: methaDONE HCL 10 MG TABLET PO ONE (10:00)
[2021-09-26] MEDS ORDERED: PNEUMOC 13-VAL CONJ-DIP CRM/PF 0.5 ML DISP.SYRIN IM ONE (12:00)
[2021-09-26] MEDS ORDERED: PNEUMOCOCCAL 23 VACCINE 0.5 ML VIAL IM ONE (12:00)
[2021-09-26] MEDS ORDERED: FLU VACC QS2021-22(6MOS UP)/PF 60 MCG/0.5 ML SYRINGE IM ONE (12:00)
[2021-09-26] MEDS: GABAPENTIN 300 MG CAPSULE PO SCH ×2 (13:08→22:22)
[2021-09-26] MEDS: diazePAM 5 MG TABLET PO PRN (13:10)
[2021-09-26] MEDS: cloNIDine HCL 0.1 MG TABLET PO PRN (15:33)
[2021-09-26] MEDS: METHOCARBAMOL 500 MG TABLET PO PRN (18:05)
[2021-09-26] MEDS: THIAMINE HCL 100 MG TABLET (FP) PO SCH (22:22)
[2021-09-26] MEDS: PRAVASTATIN SODIUM 10 MG PO SCH (22:25)
[2021-09-26] MEDS: URSODIOL 500 MG PO SCH (22:25)
[2021-09-26] MEDS: MIRTAZAPINE 30 MG TABLET PO SCH (22:26)
[2021-09-27] MEDS ORDERED: methaDONE HCL 10 MG TABLET ONE (04:38)
[2021-09-27] MEDS ORDERED: methaDONE HCL 40 MG DISPERSABLE TABLET ONE (04:38)
[2021-09-27] MEDS: GABAPENTIN 300 MG CAPSULE PO SCH ×3 (05:25→22:11)
[2021-09-27] MEDS: diazePAM 5 MG TABLET PO SCH ×2 (05:25→14:01)
[2021-09-27] MEDS: URSODIOL 500 MG PO SCH ×3 (05:26→22:12)
[2021-09-27] MEDS ORDERED: methaDONE HCL 10 MG TABLET PO SCH (06:00)
[2021-09-27] MEDS: diazePAM 5 MG TABLET PO PRN ×3 (07:23→16:46)
[2021-09-27 10:08] LABS: SARS-CoV-2 NAA Not Detected (Not Detected)
[2021-09-27] MEDS: METHOCARBAMOL 500 MG TABLET PO PRN ×2 (10:08→22:17)
[2021-09-27] MEDS: PRENATAL VITAMINS W/ FOLIC ACID TABLET (FP) PO SCH (10:08)
[2021-09-27] MEDS: SERTRALINE HCL 50 MG TABLET (FP) PO SCH (10:09)
[2021-09-27] MEDS: hydrOXYzine PAMOATE 25 MG CAPSULE (FP) PO PRN ×2 (10:09→16:46)
[2021-09-27] MEDS: IBUPROFEN 400 MG TABLET (FP) PO PRN (10:44)
[2021-09-27] MEDS: amLODIPine BESYLATE 5 MG TABLET (FP) PO SCH (18:23)
[2021-09-27] MEDS: chlordiazePOXIDE HCL 25 MG CAPSULE PO PRN (20:01)
[2021-09-27] MEDS: MIRTAZAPINE 30 MG TABLET PO SCH (22:11)
[2021-09-27] MEDS: PRAVASTATIN SODIUM 10 MG PO SCH (22:11)
[2021-09-27] MEDS: THIAMINE HCL 100 MG TABLET (FP) PO SCH (22:11)
[2021-09-27] MEDS: chlordiazePOXIDE HCL 25 MG CAPSULE PO SCH (22:13)
[2021-09-27] MEDS: cloNIDine HCL 0.1 MG TABLET PO PRN (22:17)
[2021-09-28] MEDS: chlordiazePOXIDE HCL 25 MG CAPSULE PO PRN ×2 (03:27→07:17)
[2021-09-28] MEDS ORDERED: methaDONE HCL 10 MG TABLET ONE (03:58)
[2021-09-28] MEDS ORDERED: methaDONE HCL 40 MG DISPERSABLE TABLET ONE (03:58)
[2021-09-28] MEDS: GABAPENTIN 300 MG CAPSULE PO SCH ×3 (04:59→22:25)
[2021-09-28] MEDS: chlordiazePOXIDE HCL 25 MG CAPSULE PO SCH (04:59)
[2021-09-28] MEDS: METHOCARBAMOL 500 MG TABLET PO PRN ×2 (05:01→13:43)
[2021-09-28] MEDS: URSODIOL 500 MG PO SCH ×3 (05:01→22:26)
[2021-09-28] MEDS ORDERED: diazePAM 5 MG TABLET PO SCH (06:00)
[2021-09-28] MEDS: IBUPROFEN 400 MG TABLET (FP) PO PRN ×2 (07:12→17:35)
[2021-09-28] MEDS: SERTRALINE HCL 50 MG TABLET (FP) PO SCH (10:23)
[2021-09-28] MEDS: PRENATAL VITAMINS W/ FOLIC ACID TABLET (FP) PO SCH (10:23)
[2021-09-28] MEDS: amLODIPine BESYLATE 5 MG TABLET (FP) PO SCH (10:23)
[2021-09-28] MEDS: hydrOXYzine PAMOATE 25 MG CAPSULE (FP) PO PRN ×3 (10:57→22:25)
[2021-09-28] MEDS: LORazepam 1 MG TABLET PO SCH ×3 (11:12→22:27)
[2021-09-28] MEDS: LORazepam 1 MG TABLET PO PRN (13:44)
[2021-09-28 17:13] LABS: ALBUMIN 2.4 g/dl (3.4-5.0); BLOOD UREA NITROGEN 12.7 mg/dL (7-18); CALCIUM 8.8 mg/dL (8.5-10.1); HEMATOCRIT 29.5 % (35.4-49); HEMOGLOBIN 9.6 GM/dL (11.7-16.9); MCH 31.6 pg (25.7-33.7); MCHC 32.5 g/dl (32.0-35.9); MEAN CELL VOLUME 97.3 fl (80-96); MEAN PLT VOLUME 9.4 fl (7.5-11.1); PLATELET COUNT 289 10^3/uL (134-434); RBC 3.03 M/mm3 (4.00-5.60); RDW 14.3 % (11.9-15.9); WHITE BLOOD COUNT 6.4 K/mm3 (4.0-10.0)
[2021-09-28 17:18] LABS: BILIRUBIN,TOTAL 3.3 mg/dL (0.2-1); TOT PROT 8.6 g/dl (6.4-8.2)
[2021-09-28] MEDS: cloNIDine HCL 0.1 MG TABLET PO PRN (17:35)
[2021-09-28] MEDS: THIAMINE HCL 100 MG TABLET (FP) PO SCH (22:25)
[2021-09-28] MEDS: MIRTAZAPINE 30 MG TABLET PO SCH (22:25)
[2021-09-28] MEDS: PRAVASTATIN SODIUM 10 MG PO SCH (22:26)
[2021-09-29] MEDS ORDERED: methaDONE HCL 10 MG TABLET ONE (04:12)
[2021-09-29] MEDS ORDERED: methaDONE HCL 40 MG DISPERSABLE TABLET ONE (04:13)
[2021-09-29] MEDS ORDERED: chlordiazePOXIDE HCL 10 MG CAPSULE PO SCH (05:00)
[2021-09-29] MEDS: METHOCARBAMOL 500 MG TABLET PO PRN ×2 (05:29→17:01)
[2021-09-29] MEDS: URSODIOL 500 MG PO SCH ×3 (05:29→22:07)
[2021-09-29] MEDS: LORazepam 1 MG TABLET PO SCH ×4 (05:29→22:06)
[2021-09-29] MEDS: GABAPENTIN 300 MG CAPSULE PO SCH ×3 (05:29→22:05)
[2021-09-29] MEDS: IBUPROFEN 400 MG TABLET (FP) PO PRN ×2 (05:34→17:01)
[2021-09-29] MEDS ORDERED: diazePAM 5 MG TABLET PO ONE (06:00)
[2021-09-29] MEDS: LORazepam 1 MG TABLET PO PRN ×2 (07:36→14:34)
[2021-09-29] MEDS: SERTRALINE HCL 50 MG TABLET (FP) PO SCH (10:05)
[2021-09-29] MEDS: PRENATAL VITAMINS W/ FOLIC ACID TABLET (FP) PO SCH (10:05)
[2021-09-29] MEDS: amLODIPine BESYLATE 5 MG TABLET (FP) PO SCH (10:05)
[2021-09-29] MEDS: hydrOXYzine PAMOATE 25 MG CAPSULE (FP) PO PRN ×2 (10:06→17:01)
[2021-09-29] MEDS: MELATONIN 5 MG TABLETS PO PRN (22:05)
[2021-09-29] MEDS: MIRTAZAPINE 30 MG TABLET PO SCH (22:06)
[2021-09-29] MEDS: THIAMINE HCL 100 MG TABLET (FP) PO SCH (22:07)
[2021-09-29] MEDS: PRAVASTATIN SODIUM 10 MG PO SCH (22:08)
[2021-09-30] MEDS ORDERED: chlordiazePOXIDE HCL 10 MG CAPSULE PO PRN
[2021-09-30] MEDS: LORazepam 0.5 MG TABLET PO PRN ×3 (02:58→13:52)
[2021-09-30] MEDS ORDERED: methaDONE HCL 10 MG TABLET ONE (04:14)
[2021-09-30] MEDS ORDERED: methaDONE HCL 40 MG DISPERSABLE TABLET ONE (04:14)
[2021-09-30] MEDS ORDERED: chlordiazePOXIDE HCL 10 MG CAPSULE PO SCH (05:00)
[2021-09-30] MEDS: GABAPENTIN 300 MG CAPSULE PO SCH ×3 (05:40→22:14)
[2021-09-30] MEDS: LORazepam 0.5 MG TABLET PO SCH ×4 (05:41→22:14)
[2021-09-30] MEDS: URSODIOL 500 MG PO SCH ×3 (06:05→22:15)
[2021-09-30] MEDS: SERTRALINE HCL 50 MG TABLET (FP) PO SCH (10:20)
[2021-09-30] MEDS: PRENATAL VITAMINS W/ FOLIC ACID TABLET (FP) PO SCH (10:20)
[2021-09-30] MEDS: amLODIPine BESYLATE 5 MG TABLET (FP) PO SCH (10:20)
[2021-09-30] MEDS: METHOCARBAMOL 500 MG TABLET PO PRN ×2 (10:21→22:19)
[2021-09-30] MEDS: hydrOXYzine PAMOATE 25 MG CAPSULE (FP) PO PRN (10:56)
[2021-09-30] MEDS: IBUPROFEN 400 MG TABLET (FP) PO PRN (10:56)
[2021-09-30] MEDS: MIRTAZAPINE 30 MG TABLET PO SCH (22:14)
[2021-09-30] MEDS: THIAMINE HCL 100 MG TABLET (FP) PO SCH (22:14)
[2021-09-30] MEDS: PRAVASTATIN SODIUM 10 MG PO SCH (22:17)
[2021-10-01] MEDS ORDERED: methaDONE HCL 10 MG TABLET ONE (04:01)
[2021-10-01] MEDS ORDERED: methaDONE HCL 40 MG DISPERSABLE TABLET ONE (04:02)
[2021-10-01] MEDS ORDERED: chlordiazePOXIDE HCL 10 MG CAPSULE PO ONE (05:00)
[2021-10-01] MEDS: LORazepam 0.5 MG TABLET PO SCH (05:14)
[2021-10-01] MEDS: GABAPENTIN 300 MG CAPSULE PO SCH (05:16)
[2021-10-01] MEDS: URSODIOL 500 MG PO SCH (05:16)
[2021-10-01] MEDS: hydrOXYzine PAMOATE 25 MG CAPSULE (FP) PO PRN (07:35)
[2021-10-01] MEDS: LORazepam 0.5 MG TABLET PO PRN (07:37)
[2021-10-01] MEDS: PRENATAL VITAMINS W/ FOLIC ACID TABLET (FP) PO SCH (10:01)
[2021-10-01] MEDS: SERTRALINE HCL 50 MG TABLET (FP) PO SCH (10:01)
[2021-10-01] MEDS: amLODIPine BESYLATE 5 MG TABLET (FP) PO SCH (10:01)
[2021-10-01] MEDS: METHOCARBAMOL 500 MG TABLET PO PRN (10:03)
[2021-10-01 11:29] VITALS: BP 136/83; PULSE 88; TEMP 98.6
[2021-10-01] MEDS ORDERED: FERROUS SO4 325 MG TABLET (FP) PO SCH (12:00)
== END 2021-10-01 12:15 | disposition home or self-care (01) | DRG 773 ==
LOC: YASAS 15:05 → Y6N 20:36
PROVIDERS: ADMIT Allergy & Immunology; ATTEND Allergy & Immunology
PROC: HZ2ZZZZ Detoxification Services for Substance Abuse Treatment (ICD-10-PCS; principal; 2021-09-25)
DX: F10.230 Alcohol dependence with withdrawal, uncomplicated (principal); F13.230 Sedative, hypnotic or anxiolytic dependence with withdrawal, uncomplicated; F11.20 Opioid dependence, uncomplicated; F12.10 Cannabis abuse, uncomplicated; F19.280 Other psychoactive substance dependence with psychoactive substance-induced anxiety disorder; F19.282 Other psychoactive substance dependence with psychoactive substance-induced sleep disorder; D50.9 Iron deficiency anemia, unspecified; E55.9 Vitamin D deficiency, unspecified; I10 Essential (primary) hypertension; K70.30 Alcoholic cirrhosis of liver without ascites; K75.4 Autoimmune hepatitis; K50.90 Crohn's disease, unspecified, without complications; L25.9 Unspecified contact dermatitis, unspecified cause
CPT/HCPCS: 36415; 80053; 82607; 82746; 83540; 83550; 85027; 86780; 87811; 90686; 90732; C9803-CS; G0008; G0009; J0735; Q0162; U0003; U0005

== ENCOUNTER 2021-11-16 13:27 | Inpatient (IN) | payer OTHER ==
[2021-11-16] MEDS ORDERED: MAG HYDROX/AL HYDROX/SIMETH 30 ML UNIT-DOSE CUP PO PRN (14:56)
[2021-11-16] MEDS ORDERED: ACETAMINOPHEN 325 MG TABLET (FP) PO PRN ×2 (14:56)
[2021-11-16] MEDS ORDERED: ONDANSETRON *ODT* 4 MG TABLET SL PRN (14:56)
[2021-11-16] MEDS ORDERED: DICYCLOMINE HCL 10 MG CAPSULE PO PRN (14:56)
[2021-11-16] MEDS ORDERED: IBUPROFEN 400 MG TABLET (FP) PO PRN (14:56)
[2021-11-16] MEDS ORDERED: MAGNESIUM HYDROX 2400MG/30ML ORAL SUSPENSION 30 ML CUP PO PRN (14:56)
[2021-11-16] MEDS ORDERED: LOPERAMIDE HCL 2 MG CAPSULE PO PRN (14:56)
[2021-11-16] MEDS ORDERED: BISMUTH SUBSALICYLATE 524 MG/30 ML PO PRN (14:56)
[2021-11-16] MEDS ORDERED: BENZOCAINE/MENTHOL (CHLORASEPTIC ) LOZENGE MM PRN (14:56)
[2021-11-16] MEDS ORDERED: MAGNESIUM CITRATE 300 ML BOTTLE PO PRN (14:56)
[2021-11-16] MEDS: LORazepam 2 MG TABLET PO SCH ×2 (18:39→22:45)
[2021-11-16] MEDS: amLODIPine BESYLATE 5 MG TABLET (FP) PO SCH (18:40)
[2021-11-16] MEDS: PRENATAL VITAMINS W/ FOLIC ACID TABLET (FP) PO SCH (18:41)
[2021-11-16] MEDS: hydrOXYzine PAMOATE 25 MG CAPSULE (FP) PO SCH ×2 (20:06→22:46)
[2021-11-16] MEDS: MELATONIN 5 MG TABLETS PO SCH (22:45)
[2021-11-16] MEDS: THIAMINE HCL 100 MG TABLET (FP) PO SCH (22:46)
[2021-11-16] MEDS: METHOCARBAMOL 500 MG TABLET PO PRN (22:47)
[2021-11-17] MEDS: LORazepam 1 MG TABLET PO PRN ×2 (02:33→14:20)
[2021-11-17] MEDS: LORazepam 2 MG TABLET PO SCH ×4 (05:52→22:59)
[2021-11-17] MEDS: hydrOXYzine PAMOATE 25 MG CAPSULE (FP) PO SCH ×5 (05:52→23:39)
[2021-11-17] MEDS: methaDONE HCL 40 MG DISPERSABLE TABLET PO SCH (09:43)
[2021-11-17] MEDS: amLODIPine BESYLATE 5 MG TABLET (FP) PO SCH (10:14)
[2021-11-17] MEDS: PRENATAL VITAMINS W/ FOLIC ACID TABLET (FP) PO SCH (10:14)
[2021-11-17] MEDS: METHOCARBAMOL 500 MG TABLET PO PRN (10:14)
[2021-11-17 10:25] LABS: HEMATOCRIT 30.4 % (35.4-49); HEMOGLOBIN 10.2 GM/dL (11.7-16.9); MCH 32.1 pg (25.7-33.7); MCHC 33.6 g/dl (32.0-35.9); MEAN CELL VOLUME 95.4 fl (80-96); MEAN PLT VOLUME 8.9 fl (7.5-11.1); PLATELET COUNT 407 10^3/uL (134-434); RBC 3.19 M/mm3 (4.00-5.60); RDW 14.2 % (11.9-15.9); WHITE BLOOD COUNT 6.9 K/mm3 (4.0-10.0)
[2021-11-17 10:40] LABS: CALCIUM 9.6 mg/dL (8.5-10.1)
[2021-11-17 10:43] LABS: ALBUMIN 2.7 g/dl (3.4-5.0)
[2021-11-17 10:44] LABS: BILIRUBIN,TOTAL 7.4 mg/dL (0.2-1)
[2021-11-17 10:45] LABS: CREATININE 1.2 mg/dL (0.55-1.3)
[2021-11-17 10:46] LABS: TOT PROT 8.6 g/dl (6.4-8.2)
[2021-11-17] MEDS: SERTRALINE HCL 50 MG TABLET (FP) PO SCH (14:17)
[2021-11-17] MEDS: GABAPENTIN 300 MG CAPSULE PO SCH ×2 (14:17→22:59)
[2021-11-17] MEDS: URSODIOL 300 MG CAPSULE PO SCH (19:25)
[2021-11-17] MEDS: ATORVASTATIN CA 10 MG TABLET (FP) PO SCH (22:59)
[2021-11-17] MEDS: THIAMINE HCL 100 MG TABLET (FP) PO SCH (22:59)
[2021-11-17] MEDS: MIRTAZAPINE 30 MG TABLET PO SCH (22:59)
[2021-11-17] MEDS: MELATONIN 5 MG TABLETS PO SCH (23:39)
[2021-11-18] MEDS: methaDONE HCL 40 MG DISPERSABLE TABLET PO SCH (06:20)
[2021-11-18] MEDS: LORazepam 1 MG TABLET PO SCH ×4 (06:21→22:00)
[2021-11-18] MEDS: hydrOXYzine PAMOATE 25 MG CAPSULE (FP) PO SCH ×2 (06:22→12:15)
[2021-11-18] MEDS: URSODIOL 300 MG CAPSULE PO SCH ×2 (07:11→18:16)
[2021-11-18] MEDS ORDERED: hydrOXYzine PAMOATE 25 MG CAPSULE (FP) PO PRN (11:10)
[2021-11-18] MEDS ORDERED: BACITRACIN 15 GM TUBE TOPICAL OINTMENT TP SCH (11:15)
[2021-11-18 11:51] LABS: HEMATOCRIT 31.4 % (35.4-49); HEMOGLOBIN 10.2 GM/dL (11.7-16.9); MCH 31.3 pg (25.7-33.7); MCHC 32.4 g/dl (32.0-35.9); MEAN CELL VOLUME 96.5 fl (80-96); PLATELET COUNT 381 10^3/uL (134-434); RBC 3.25 M/mm3 (4.00-5.60); RDW 14.4 % (11.9-15.9); WHITE BLOOD COUNT 6.6 K/mm3 (4.0-10.0)
[2021-11-18 11:55] LABS: INR 1.39 (0.83-1.09)
[2021-11-18 12:08] LABS: CALCIUM 9.4 mg/dL (8.5-10.1)
[2021-11-18 12:09] LABS: ALBUMIN 2.6 g/dl (3.4-5.0); BLOOD UREA NITROGEN 16.8 mg/dL (7-18)
[2021-11-18] MEDS: PRENATAL VITAMINS W/ FOLIC ACID TABLET (FP) PO SCH (12:11)
[2021-11-18] MEDS: SERTRALINE HCL 50 MG TABLET (FP) PO SCH (12:11)
[2021-11-18] MEDS: amLODIPine BESYLATE 5 MG TABLET (FP) PO SCH (12:11)
[2021-11-18] MEDS: GABAPENTIN 300 MG CAPSULE PO SCH ×2 (12:11→22:00)
[2021-11-18] MEDS: METHOCARBAMOL 500 MG TABLET PO PRN (12:11)
[2021-11-18 12:13] LABS: TOT PROT 8.2 g/dl (6.4-8.2)
[2021-11-18 12:14] LABS: BILIRUBIN,TOTAL 6.8 mg/dL (0.2-1)
[2021-11-18] MEDS ORDERED: LACTULOSE 20 GM/30 ML UDC (FOR ORAL USE ONLY) PO ONE (13:19)
[2021-11-18] MEDS: FLUOCINONIDE 0.05% TOP OINT (60 GM TUBE) TP SCH ×3 (15:34→22:01)
[2021-11-18] MEDS: LACTULOSE 20 GM/30 ML UDC (FOR ORAL USE ONLY) PO SCH ×3 (15:34→22:01)
[2021-11-18] MEDS: THIAMINE HCL 100 MG TABLET (FP) PO SCH (22:00)
[2021-11-18] MEDS: ATORVASTATIN CA 10 MG TABLET (FP) PO SCH (22:00)
[2021-11-18] MEDS: MIRTAZAPINE 30 MG TABLET PO SCH (22:06)
[2021-11-18] MEDS: MELATONIN 5 MG TABLETS PO SCH (22:07)
[2021-11-19] MEDS ORDERED: LORazepam 0.5 MG TABLET PO PRN
[2021-11-19 00:06] LABS: SARS-CoV-2 NAA Not Detected (Not Detected)
[2021-11-19] MEDS ORDERED: LORazepam 0.5 MG TABLET PO SCH (05:00)
[2021-11-19] MEDS: methaDONE HCL 40 MG DISPERSABLE TABLET PO SCH (05:52)
[2021-11-19] MEDS: URSODIOL 300 MG CAPSULE PO SCH (07:34)
[2021-11-19 09:00] VITALS: BP 133/89; PULSE 114; TEMP 97.9
[2021-11-19 12:43] LABS: BASO % 0.7 % (0-2.0); EOS % 15.1 % (0-4.5); LYMPH % 36.6 % (8-40); MCH 31.5 pg (25.7-33.7); MCHC 32.4 g/dl (32.0-35.9); MEAN CELL VOLUME 97.3 fl (80-96); MEAN PLT VOLUME 9.4 fl (7.5-11.1); MONO % 8.4 % (3.8-10.2); NEUT % 39.2 % (42.8-82.8); PLATELET COUNT 410 10^3/uL (134-434); RDW 14.3 % (11.9-15.9); WHITE BLOOD COUNT 7.2 K/mm3 (4.0-10.0)
[2021-11-19 12:44] LABS: INR 1.62 (0.83-1.09); PROTHROMBIN TIME (PATIENT) 18.7 SEC (9.7-13.0)
[2021-11-19 13:04] LABS: CALCIUM 10.1 mg/dL (8.5-10.1)
[2021-11-19 13:05] LABS: BLOOD UREA NITROGEN 11.7 mg/dL (7-18)
[2021-11-19 13:09] LABS: BILIRUBIN,TOTAL 6.7 mg/dL (0.2-1); TOT PROT 9.4 g/dl (6.4-8.2)
[2021-11-20] MEDS ORDERED: LORazepam 0.5 MG TABLET PO ONE (05:00)
== END 2021-11-19 10:00 | disposition home or self-care (01) | DRG 773 ==
LOC: YASAS 13:27 → Y6N 16:50
PROVIDERS: ADMIT Allergy & Immunology; ATTEND Allergy & Immunology
PROC: HZ2ZZZZ Detoxification Services for Substance Abuse Treatment (ICD-10-PCS; principal; 2021-11-16)
DX: F10.230 Alcohol dependence with withdrawal, uncomplicated (principal); F11.20 Opioid dependence, uncomplicated; F12.20 Cannabis dependence, uncomplicated; F19.282 Other psychoactive substance dependence with psychoactive substance-induced sleep disorder; F19.24 Other psychoactive substance dependence with psychoactive substance-induced mood disorder; F41.8 Other specified anxiety disorders; F32.A Depression, unspecified; D50.9 Iron deficiency anemia, unspecified; K70.30 Alcoholic cirrhosis of liver without ascites; K75.4 Autoimmune hepatitis; L25.9 Unspecified contact dermatitis, unspecified cause; L30.9 Dermatitis, unspecified; L85.3 Xerosis cutis; Z56.0 Unemployment, unspecified; Z59.00 Homelessness unspecified
CPT/HCPCS: 36415; 80053; 82140; 85025; 85027; 85610; 86780; C9803-CS; U0003; U0005

== ENCOUNTER 2021-12-26 14:32 | Inpatient (IN) | payer OTHER ==
[2021-12-26 16:35] VITALS: BMI 22.4
[2021-12-26] MEDS ORDERED: BENZOCAINE/MENTHOL (CHLORASEPTIC ) LOZENGE MM PRN (17:51)
[2021-12-26] MEDS ORDERED: DICYCLOMINE HCL 10 MG CAPSULE PO PRN (17:51)
[2021-12-26] MEDS ORDERED: MAGNESIUM HYDROX 2400MG/30ML ORAL SUSPENSION 30 ML CUP PO PRN (17:51)
[2021-12-26] MEDS ORDERED: MELATONIN 5 MG TABLETS PO PRN (17:51)
[2021-12-26] MEDS ORDERED: IBUPROFEN 400 MG TABLET (FP) PO PRN (17:51)
[2021-12-26] MEDS ORDERED: BISMUTH SUBSALICYLATE 524 MG/30 ML PO PRN (17:51)
[2021-12-26] MEDS ORDERED: LOPERAMIDE HCL 2 MG CAPSULE PO PRN (17:51)
[2021-12-26] MEDS ORDERED: MAGNESIUM CITRATE 300 ML BOTTLE PO PRN (17:51)
[2021-12-26] MEDS ORDERED: ONDANSETRON *ODT* 4 MG TABLET SL PRN (17:51)
[2021-12-26] MEDS ORDERED: ACETAMINOPHEN 325 MG TABLET (FP) PO PRN ×2 (17:51)
[2021-12-26] MEDS ORDERED: chlordiazePOXIDE HCL 25 MG CAPSULE PO ONE (17:54)
[2021-12-26] MEDS: hydrOXYzine PAMOATE 25 MG CAPSULE (FP) PO PRN (20:19)
[2021-12-26] MEDS: amLODIPine BESYLATE 5 MG TABLET (FP) PO SCH (20:19)
[2021-12-26] MEDS: chlordiazePOXIDE HCL 25 MG CAPSULE PO PRN (20:19)
[2021-12-26] MEDS: predniSONE 1 MG TABLET (FP) PO SCH (21:02)
[2021-12-26] MEDS: GABAPENTIN 300 MG CAPSULE PO SCH (22:07)
[2021-12-26] MEDS: THIAMINE HCL 100 MG TABLET (FP) PO SCH (22:08)
[2021-12-26] MEDS: chlordiazePOXIDE HCL 25 MG CAPSULE PO SCH (22:08)
[2021-12-26] MEDS: ATORVASTATIN CA 10 MG TABLET (FP) PO SCH (22:08)
[2021-12-26] MEDS ORDERED: cloNIDine HCL 0.1 MG TABLET PO ONE (23:45)
[2021-12-26] MEDS: URSODIOL 300 MG CAPSULE PO SCH (23:51)
[2021-12-27] MEDS: hydrOXYzine PAMOATE 25 MG CAPSULE (FP) PO PRN ×2 (04:01→07:22)
[2021-12-27] MEDS: METHOCARBAMOL 500 MG TABLET PO PRN (04:01)
[2021-12-27] MEDS: chlordiazePOXIDE HCL 25 MG CAPSULE PO SCH ×4 (04:04→22:10)
[2021-12-27] MEDS: GABAPENTIN 300 MG CAPSULE PO SCH ×3 (05:44→22:10)
[2021-12-27] MEDS: URSODIOL 300 MG CAPSULE PO SCH ×3 (05:45→22:10)
[2021-12-27] MEDS: FLUOCINONIDE 0.05% CREAM (60 GM TUBE) TP PRN ×2 (06:23→22:12)
[2021-12-27] MEDS: MAG HYDROX/AL HYDROX/SIMETH 30 ML UNIT-DOSE CUP PO PRN ×2 (06:40→12:47)
[2021-12-27] MEDS ORDERED: methaDONE HCL 40 MG DISPERSABLE TABLET PO SCH (07:30)
[2021-12-27] MEDS ORDERED: methaDONE HCL 40 MG DISPERSABLE TABLET ONE (07:36)
[2021-12-27] MEDS ORDERED: methaDONE HCL 10 MG TABLET ONE (07:36)
[2021-12-27] MEDS: methaDONE 80 MG, methaDONE 20 MG PO SCH (07:45)
[2021-12-27] MEDS: chlordiazePOXIDE HCL 25 MG CAPSULE PO PRN ×3 (07:45→20:14)
[2021-12-27] MEDS: PATIENT'S OWN MEDICATION (NON-FORMULARY) (Budesonide 3 MG Cap.Sr.24h) PO SCH (09:45)
[2021-12-27] MEDS: predniSONE 1 MG TABLET (FP) PO SCH (10:04)
[2021-12-27] MEDS: PRENATAL VITAMINS W/ FOLIC ACID TABLET (FP) PO SCH (10:04)
[2021-12-27] MEDS: amLODIPine BESYLATE 5 MG TABLET (FP) PO SCH (10:04)
[2021-12-27 10:10] LABS: HEMATOCRIT 32.5 % (35.4-49); HEMOGLOBIN 11.1 GM/dL (11.7-16.9); MCH 32.7 pg (25.7-33.7); MCHC 34.2 g/dl (32.0-35.9); MEAN CELL VOLUME 95.6 fl (80-96); MEAN PLT VOLUME 9.9 fl (7.5-11.1); PLATELET COUNT 278 10^3/uL (134-434); RDW 14.4 % (11.9-15.9); WHITE BLOOD COUNT 5.6 K/mm3 (4.0-10.0)
[2021-12-27 10:52] LABS: CALCIUM 9.5 mg/dL (8.5-10.1)
[2021-12-27 10:53] LABS: BLOOD UREA NITROGEN 8.6 mg/dL (7-18)
[2021-12-27 10:56] LABS: CREATININE 0.9 mg/dL (0.55-1.3)
[2021-12-27 10:57] LABS: TOT PROT 7.6 g/dl (6.4-8.2)
[2021-12-27 15:03] LABS: EPI CELLS 2 /uL (0-25.1); HYALINE CASTS 1 /uL (0-3.1); URINE APPEARANCE CLOUDY; URINE BILIRUBIN 3+ (NEGATIVE); URINE COLOR DK YELLOW; URINE GLUCOSE (UA) NEGATIVE (NEGATIVE); URINE KETONE NEGATIVE (NEGATIVE); URINE LEUK ESTERASE 1+ (NEGATIVE); URINE NITRITE POSITIVE (NEGATIVE); URINE PROTEIN 1+ (NEGATIVE); URINE WBC 15 /uL (0-25.8)
[2021-12-27 15:05] LABS: URINE BACTERIA 1 /uL (0-1359); URINE RBC 256 /uL (0-23.9)
[2021-12-27] MEDS: ATORVASTATIN CA 10 MG TABLET (FP) PO SCH (22:10)
[2021-12-27] MEDS: THIAMINE HCL 100 MG TABLET (FP) PO SCH (22:10)
[2021-12-27] MEDS: MIRTAZAPINE 15 MG TABLET (FP) PO SCH (22:10)
[2021-12-27] MEDS: SULFAMETHOXAZOLE/TRIMETHOPRIM 800MG/160MG D.S. TABLET PO SCH (22:10)
[2021-12-28] MEDS ORDERED: methaDONE HCL 10 MG TABLET ONE (04:28)
[2021-12-28] MEDS ORDERED: methaDONE HCL 40 MG DISPERSABLE TABLET ONE (04:29)
[2021-12-28] MEDS: methaDONE 80 MG, methaDONE 20 MG PO SCH (05:28)
[2021-12-28] MEDS: chlordiazePOXIDE HCL 25 MG CAPSULE PO SCH ×3 (05:29→10:37)
[2021-12-28] MEDS: GABAPENTIN 300 MG CAPSULE PO SCH ×3 (05:29→22:25)
[2021-12-28] MEDS: URSODIOL 300 MG CAPSULE PO SCH ×3 (05:29→22:26)
[2021-12-28] MEDS: SERTRALINE HCL 50 MG TABLET (FP) PO SCH (10:22)
[2021-12-28] MEDS: hydrOXYzine PAMOATE 25 MG CAPSULE (FP) PO PRN ×2 (10:22→18:30)
[2021-12-28] MEDS: METHOCARBAMOL 500 MG TABLET PO PRN ×2 (10:22→18:45)
[2021-12-28] MEDS: amLODIPine BESYLATE 5 MG TABLET (FP) PO SCH (10:23)
[2021-12-28] MEDS: SULFAMETHOXAZOLE/TRIMETHOPRIM 800MG/160MG D.S. TABLET PO SCH ×2 (10:23→22:25)
[2021-12-28] MEDS: predniSONE 1 MG TABLET (FP) PO SCH (10:23)
[2021-12-28] MEDS: PRENATAL VITAMINS W/ FOLIC ACID TABLET (FP) PO SCH (10:23)
[2021-12-28 11:17] LABS: CREATININE 0.9 mg/dL (0.55-1.3)
[2021-12-28 11:22] LABS: CALCIUM 9.5 mg/dL (8.5-10.1)
[2021-12-28 11:23] LABS: ALBUMIN 2.8 g/dl (3.4-5.0); BLOOD UREA NITROGEN 12.9 mg/dL (7-18)
[2021-12-28 11:25] LABS: TOT PROT 7.4 g/dl (6.4-8.2)
[2021-12-28] MEDS: diazePAM 5 MG TABLET PO SCH ×2 (15:11→22:26)
[2021-12-28] MEDS: diazePAM 5 MG TABLET PO PRN (18:28)
[2021-12-28] MEDS: IBUPROFEN 600 MG TABLET (FP) PO PRN (18:44)
[2021-12-28] MEDS: ATORVASTATIN CA 10 MG TABLET (FP) PO SCH (22:25)
[2021-12-28] MEDS: MIRTAZAPINE 15 MG TABLET (FP) PO SCH (22:25)
[2021-12-28] MEDS: THIAMINE HCL 100 MG TABLET (FP) PO SCH (22:25)
[2021-12-29] MEDS ORDERED: chlordiazePOXIDE HCL 10 MG CAPSULE PO PRN
[2021-12-29] MEDS: diazePAM 5 MG TABLET PO PRN ×3 (03:27→14:01)
[2021-12-29] MEDS ORDERED: methaDONE HCL 40 MG DISPERSABLE TABLET ONE (04:48)
[2021-12-29] MEDS ORDERED: methaDONE HCL 10 MG TABLET ONE (04:48)
[2021-12-29] MEDS ORDERED: chlordiazePOXIDE HCL 10 MG CAPSULE PO SCH (05:00)
[2021-12-29] MEDS: methaDONE 80 MG, methaDONE 20 MG PO SCH (05:36)
[2021-12-29] MEDS: GABAPENTIN 300 MG CAPSULE PO SCH ×2 (05:37→14:01)
[2021-12-29] MEDS: URSODIOL 300 MG CAPSULE PO SCH ×2 (05:37→14:01)
[2021-12-29] MEDS: diazePAM 5 MG TABLET PO SCH (10:08)
[2021-12-29] MEDS: SULFAMETHOXAZOLE/TRIMETHOPRIM 800MG/160MG D.S. TABLET PO SCH (10:09)
[2021-12-29] MEDS: amLODIPine BESYLATE 5 MG TABLET (FP) PO SCH (10:09)
[2021-12-29] MEDS: SERTRALINE HCL 50 MG TABLET (FP) PO SCH (10:09)
[2021-12-29] MEDS: PRENATAL VITAMINS W/ FOLIC ACID TABLET (FP) PO SCH (10:09)
[2021-12-29] MEDS: predniSONE 1 MG TABLET (FP) PO SCH (10:11)
[2021-12-29] MEDS: IBUPROFEN 600 MG TABLET (FP) PO PRN (11:00)
[2021-12-29] MEDS: hydrOXYzine PAMOATE 25 MG CAPSULE (FP) PO PRN ×2 (11:00→18:43)
[2021-12-29] MEDS: METHOCARBAMOL 500 MG TABLET PO PRN (18:43)
[2021-12-30] MEDS: SULFAMETHOXAZOLE/TRIMETHOPRIM 800MG/160MG D.S. TABLET PO SCH ×2 (00:36→10:05)
[2021-12-30] MEDS: URSODIOL 300 MG CAPSULE PO SCH ×2 (00:36→05:44)
[2021-12-30] MEDS: ATORVASTATIN CA 10 MG TABLET (FP) PO SCH (00:36)
[2021-12-30] MEDS: diazePAM 5 MG TABLET PO SCH (00:37)
[2021-12-30] MEDS: MIRTAZAPINE 15 MG TABLET (FP) PO SCH (00:37)
[2021-12-30] MEDS: GABAPENTIN 300 MG CAPSULE PO SCH ×2 (00:37→05:45)
[2021-12-30] MEDS: THIAMINE HCL 100 MG TABLET (FP) PO SCH (00:38)
[2021-12-30] MEDS ORDERED: methaDONE HCL 40 MG DISPERSABLE TABLET ONE (03:59)
[2021-12-30] MEDS ORDERED: methaDONE HCL 10 MG TABLET ONE (03:59)
[2021-12-30] MEDS ORDERED: chlordiazePOXIDE HCL 10 MG CAPSULE PO SCH (05:00)
[2021-12-30] MEDS: hydrOXYzine PAMOATE 25 MG CAPSULE (FP) PO PRN (05:45)
[2021-12-30] MEDS: methaDONE 80 MG, methaDONE 20 MG PO SCH (05:45)
[2021-12-30] MEDS: METHOCARBAMOL 500 MG TABLET PO PRN (05:49)
[2021-12-30 09:56] VITALS: TEMP 97.1
[2021-12-30 09:57] VITALS: BP 120/74; PULSE 70
[2021-12-30] MEDS ORDERED: diazePAM 5 MG TABLET PO SCH (10:00)
[2021-12-30] MEDS: PRENATAL VITAMINS W/ FOLIC ACID TABLET (FP) PO SCH (10:05)
[2021-12-30] MEDS: amLODIPine BESYLATE 5 MG TABLET (FP) PO SCH (10:05)
[2021-12-30] MEDS: predniSONE 1 MG TABLET (FP) PO SCH (10:06)
[2021-12-30] MEDS: SERTRALINE HCL 50 MG TABLET (FP) PO SCH (10:08)
[2021-12-31] MEDS ORDERED: chlordiazePOXIDE HCL 10 MG CAPSULE PO ONE (05:00)
[2022-01-02] MEDS ORDERED: ERGOCALCIFEROL (VIT D2) 50,000 UNIT (1.25 MG) CAPSULE PO SCH (10:00)
== END 2021-12-30 11:03 | disposition other institution (70) | DRG 773 ==
LOC: YASAS 14:32 → Y3N 18:49
PROVIDERS: ADMIT Allergy & Immunology; ATTEND Surgery
PROC: HZ2ZZZZ Detoxification Services for Substance Abuse Treatment (ICD-10-PCS; principal; 2021-12-26)
DX: F11.23 Opioid dependence with withdrawal (principal); F10.230 Alcohol dependence with withdrawal, uncomplicated; F12.20 Cannabis dependence, uncomplicated; F17.210 Nicotine dependence, cigarettes, uncomplicated; F19.24 Other psychoactive substance dependence with psychoactive substance-induced mood disorder; K74.60 Unspecified cirrhosis of liver; K75.4 Autoimmune hepatitis; N39.0 Urinary tract infection, site not specified
CPT/HCPCS: 36415; 80053; 81003; 82140; 85027; 86780; C9803-CS; J0735; U0003; U0005

== ENCOUNTER 2022-01-30 15:59 | Inpatient (IN) | payer OTHER ==
[2022-01-30 18:23] VITALS: BMI 21.7
[2022-01-30] MEDS ORDERED: LOPERAMIDE HCL 2 MG CAPSULE PO PRN (19:57)
[2022-01-30] MEDS ORDERED: BENZOCAINE/MENTHOL (CHLORASEPTIC ) LOZENGE MM PRN (19:57)
[2022-01-30] MEDS ORDERED: MAGNESIUM HYDROX 2400MG/30ML ORAL SUSPENSION 30 ML CUP PO PRN (19:57)
[2022-01-30] MEDS ORDERED: MAGNESIUM CITRATE 300 ML BOTTLE PO PRN (19:57)
[2022-01-30] MEDS ORDERED: BISMUTH SUBSALICYLATE 524 MG/30 ML PO PRN (19:57)
[2022-01-30] MEDS ORDERED: DICYCLOMINE HCL 10 MG CAPSULE PO PRN (19:57)
[2022-01-30] MEDS ORDERED: IBUPROFEN 600 MG TABLET (FP) PO PRN (19:57)
[2022-01-30] MEDS ORDERED: ONDANSETRON *ODT* 4 MG TABLET SL PRN (19:57)
[2022-01-30] MEDS ORDERED: MAG HYDROX/AL HYDROX/SIMETH 30 ML UNIT-DOSE CUP PO PRN (19:57)
[2022-01-30] MEDS: chlordiazePOXIDE HCL 25 MG CAPSULE PO PRN (22:04)
[2022-01-30] MEDS: THIAMINE HCL 100 MG TABLET (FP) PO SCH (22:04)
[2022-01-30] MEDS: ATORVASTATIN CA 10 MG TABLET (FP) PO SCH (22:04)
[2022-01-30] MEDS: MIRTAZAPINE 15 MG TABLET (FP) PO SCH (22:04)
[2022-01-30] MEDS: GABAPENTIN 300 MG CAPSULE PO SCH (22:04)
[2022-01-30] MEDS: MELATONIN 5 MG TABLETS PO SCH (22:04)
[2022-01-30] MEDS: hydrOXYzine PAMOATE 25 MG CAPSULE (FP) PO SCH (22:05)
[2022-01-30] MEDS: chlordiazePOXIDE HCL 25 MG CAPSULE PO SCH (23:23)
[2022-01-31] MEDS: hydrOXYzine PAMOATE 25 MG CAPSULE (FP) PO SCH ×5 (05:41→23:35)
[2022-01-31] MEDS: chlordiazePOXIDE HCL 25 MG CAPSULE PO SCH ×4 (05:41→22:02)
[2022-01-31] MEDS: URSODIOL 300 MG CAPSULE PO SCH ×3 (05:41→23:34)
[2022-01-31] MEDS: GABAPENTIN 300 MG CAPSULE PO SCH ×3 (06:24→22:02)
[2022-01-31] MEDS: methaDONE HCL 40 MG DISPERSABLE TABLET PO SCH (10:03)
[2022-01-31] MEDS: PRENATAL VITAMINS W/ FOLIC ACID TABLET (FP) PO SCH (10:04)
[2022-01-31] MEDS: amLODIPine BESYLATE 5 MG TABLET (FP) PO SCH (10:04)
[2022-01-31] MEDS: METHOCARBAMOL 500 MG TABLET PO PRN (10:05)
[2022-01-31] MEDS: SERTRALINE HCL 50 MG TABLET (FP) PO SCH (10:05)
[2022-01-31 11:39] LABS: HEMATOCRIT 32.9 % (35.4-49); HEMOGLOBIN 10.9 GM/dL (11.7-16.9); MCH 31.9 pg (25.7-33.7); MCHC 33.2 g/dl (32.0-35.9); MEAN CELL VOLUME 96.2 fl (80-96); MEAN PLT VOLUME 8.4 fl (7.5-11.1); PLATELET COUNT 408 10^3/uL (134-434); RBC 3.42 M/mm3 (4.00-5.60); RDW 14.6 % (11.9-15.9); WHITE BLOOD COUNT 10.1 K/mm3 (4.0-10.0)
[2022-01-31] MEDS: chlordiazePOXIDE HCL 25 MG CAPSULE PO PRN (13:03)
[2022-01-31] MEDS: IBUPROFEN 400 MG TABLET (FP) PO PRN (13:06)
[2022-01-31 15:01] LABS: BLOOD UREA NITROGEN 16.6 mg/dL (7-18)
[2022-01-31 15:02] LABS: ALBUMIN 2.8 g/dl (3.4-5.0); CALCIUM 9.7 mg/dL (8.5-10.1)
[2022-01-31 15:04] LABS: BILIRUBIN,TOTAL 4.1 mg/dL (0.2-1); CREATININE 0.9 mg/dL (0.55-1.3); TOT PROT 7.5 g/dl (6.4-8.2)
[2022-01-31] MEDS: ATORVASTATIN CA 10 MG TABLET (FP) PO SCH (22:02)
[2022-01-31] MEDS: MIRTAZAPINE 15 MG TABLET (FP) PO SCH (22:02)
[2022-01-31] MEDS: THIAMINE HCL 100 MG TABLET (FP) PO SCH (22:02)
[2022-01-31] MEDS: MELATONIN 5 MG TABLETS PO SCH (22:06)
[2022-02-01] MEDS ORDERED: chlordiazePOXIDE HCL 25 MG CAPSULE PO SCH (05:00)
[2022-02-01] MEDS: GABAPENTIN 300 MG CAPSULE PO SCH ×3 (05:37→22:28)
[2022-02-01] MEDS: methaDONE HCL 40 MG DISPERSABLE TABLET PO SCH (05:37)
[2022-02-01] MEDS: URSODIOL 300 MG CAPSULE PO SCH ×3 (05:37→22:38)
[2022-02-01] MEDS: hydrOXYzine PAMOATE 25 MG CAPSULE (FP) PO SCH ×5 (05:38→22:34)
[2022-02-01] MEDS: METHOCARBAMOL 500 MG TABLET PO PRN (07:32)
[2022-02-01] MEDS: IBUPROFEN 400 MG TABLET (FP) PO PRN (07:32)
[2022-02-01] MEDS: chlordiazePOXIDE HCL 25 MG CAPSULE PO PRN (08:07)
[2022-02-01] MEDS ORDERED: LORazepam 0.5 MG TABLET PO PRN (09:11)
[2022-02-01] MEDS: SERTRALINE HCL 50 MG TABLET (FP) PO SCH (10:04)
[2022-02-01] MEDS: amLODIPine BESYLATE 5 MG TABLET (FP) PO SCH (10:04)
[2022-02-01] MEDS: FAMOTIDINE 20 MG TABLET PO SCH (10:04)
[2022-02-01] MEDS: PRENATAL VITAMINS W/ FOLIC ACID TABLET (FP) PO SCH (10:04)
[2022-02-01] MEDS: LORazepam 0.5 MG TABLET PO SCH ×3 (10:04→22:28)
[2022-02-01] MEDS: AMMONIUM LACTATE 12% LOTION 225 GM BOTTLE TP SCH ×2 (13:37→23:12)
[2022-02-01] MEDS: MELATONIN 5 MG TABLETS PO SCH (22:27)
[2022-02-01] MEDS: ATORVASTATIN CA 10 MG TABLET (FP) PO SCH (22:28)
[2022-02-01] MEDS: THIAMINE HCL 100 MG TABLET (FP) PO SCH (22:28)
[2022-02-01] MEDS: MIRTAZAPINE 15 MG TABLET (FP) PO SCH (22:28)
[2022-02-01] MEDS ORDERED: diphenhydrAMINE HCL 25 MG CAPSULE (FP) PO ONE (22:31)
[2022-02-01] MEDS: diphenhydrAMINE HCL 50 MG CAPSULE PO PRN (22:32)
[2022-02-02] MEDS ORDERED: chlordiazePOXIDE HCL 10 MG CAPSULE PO PRN
[2022-02-02] MEDS ORDERED: chlordiazePOXIDE HCL 10 MG CAPSULE PO SCH (05:00)
[2022-02-02] MEDS: GABAPENTIN 300 MG CAPSULE PO SCH ×3 (05:37→22:08)
[2022-02-02] MEDS: hydrOXYzine PAMOATE 25 MG CAPSULE (FP) PO SCH ×5 (05:37→22:11)
[2022-02-02] MEDS: methaDONE HCL 40 MG DISPERSABLE TABLET PO SCH (05:37)
[2022-02-02] MEDS: LORazepam 0.5 MG TABLET PO SCH ×3 (05:37→22:05)
[2022-02-02] MEDS: URSODIOL 300 MG CAPSULE PO SCH ×2 (05:38→22:06)
[2022-02-02] MEDS ORDERED: LORazepam 0.5 MG TABLET PO ONE (10:00)
[2022-02-02] MEDS: SERTRALINE HCL 50 MG TABLET (FP) PO SCH (10:38)
[2022-02-02] MEDS: FAMOTIDINE 20 MG TABLET PO SCH (10:38)
[2022-02-02] MEDS: PRENATAL VITAMINS W/ FOLIC ACID TABLET (FP) PO SCH (10:38)
[2022-02-02] MEDS: amLODIPine BESYLATE 5 MG TABLET (FP) PO SCH (10:38)
[2022-02-02] MEDS: AMMONIUM LACTATE 12% LOTION 225 GM BOTTLE TP SCH ×2 (10:49→22:08)
[2022-02-02] MEDS ORDERED: IBUPROFEN 600 MG TABLET (FP) PO PRN (11:58)
[2022-02-02] MEDS ORDERED: ACETAMINOPHEN 325 MG TABLET (FP) PO PRN (12:01)
[2022-02-02] MEDS ORDERED: HYDROCORTISONE 1% TOPICAL CREAM 30 GM TUBE TP PRN (17:08)
[2022-02-02] MEDS: predniSONE 20 MG TABLET (UD) PO SCH (19:05)
[2022-02-02] MEDS: THIAMINE HCL 100 MG TABLET (FP) PO SCH (22:05)
[2022-02-02] MEDS: ATORVASTATIN CA 10 MG TABLET (FP) PO SCH (22:05)
[2022-02-02] MEDS: MIRTAZAPINE 15 MG TABLET (FP) PO SCH (22:05)
[2022-02-02] MEDS: diphenhydrAMINE HCL 50 MG CAPSULE PO PRN (22:08)
[2022-02-02] MEDS: MELATONIN 5 MG TABLETS PO SCH (22:11)
[2022-02-03] MEDS ORDERED: chlordiazePOXIDE HCL 10 MG CAPSULE PO SCH (05:00)
[2022-02-03] MEDS: methaDONE HCL 40 MG DISPERSABLE TABLET PO SCH (05:30)
[2022-02-03] MEDS: URSODIOL 300 MG CAPSULE PO SCH ×4 (05:30→22:45)
[2022-02-03] MEDS: hydrOXYzine PAMOATE 25 MG CAPSULE (FP) PO SCH ×5 (05:31→22:44)
[2022-02-03] MEDS: GABAPENTIN 300 MG CAPSULE PO SCH ×3 (05:31→22:44)
[2022-02-03] MEDS: LORazepam 0.5 MG TABLET PO SCH ×2 (07:13→17:53)
[2022-02-03] MEDS: PRENATAL VITAMINS W/ FOLIC ACID TABLET (FP) PO SCH (10:09)
[2022-02-03] MEDS: FAMOTIDINE 20 MG TABLET PO SCH (10:09)
[2022-02-03] MEDS: amLODIPine BESYLATE 5 MG TABLET (FP) PO SCH (10:10)
[2022-02-03] MEDS: SERTRALINE HCL 50 MG TABLET (FP) PO SCH (10:10)
[2022-02-03] MEDS: AMMONIUM LACTATE 12% LOTION 225 GM BOTTLE TP SCH ×2 (10:12→22:45)
[2022-02-03] MEDS: predniSONE 20 MG TABLET (UD) PO SCH (11:10)
[2022-02-03] MEDS: MIRTAZAPINE 15 MG TABLET (FP) PO SCH (22:44)
[2022-02-03] MEDS: ATORVASTATIN CA 10 MG TABLET (FP) PO SCH (22:44)
[2022-02-03] MEDS: THIAMINE HCL 100 MG TABLET (FP) PO SCH (22:44)
[2022-02-03] MEDS: MELATONIN 5 MG TABLETS PO SCH (22:45)
[2022-02-04] MEDS ORDERED: chlordiazePOXIDE HCL 10 MG CAPSULE PO ONE (05:00)
[2022-02-04] MEDS: hydrOXYzine PAMOATE 25 MG CAPSULE (FP) PO SCH ×2 (05:41→10:30)
[2022-02-04] MEDS: GABAPENTIN 300 MG CAPSULE PO SCH (05:41)
[2022-02-04] MEDS: URSODIOL 300 MG CAPSULE PO SCH (05:41)
[2022-02-04] MEDS: methaDONE HCL 40 MG DISPERSABLE TABLET PO SCH (05:41)
[2022-02-04] MEDS ORDERED: LORazepam 0.5 MG TABLET PO ONE (06:00)
[2022-02-04] MEDS ORDERED: predniSONE 20 MG TABLET (UD) PO SCH (07:00)
[2022-02-04] MEDS ORDERED: LACTULOSE 20 GM/30 ML UDC (FOR ORAL USE ONLY) PO SCH (10:00)
[2022-02-04] MEDS: SERTRALINE HCL 50 MG TABLET (FP) PO SCH (10:30)
[2022-02-04] MEDS: FAMOTIDINE 20 MG TABLET PO SCH (10:30)
[2022-02-04] MEDS: PRENATAL VITAMINS W/ FOLIC ACID TABLET (FP) PO SCH (10:30)
[2022-02-04] MEDS: amLODIPine BESYLATE 5 MG TABLET (FP) PO SCH (10:30)
[2022-02-04] MEDS: AMMONIUM LACTATE 12% LOTION 225 GM BOTTLE TP SCH (10:32)
[2022-02-04] MEDS ORDERED: cloNIDine HCL 0.1 MG TABLET PO PRN (10:33)
[2022-02-04 10:46] VITALS: BP 127/63; PULSE 55; TEMP 98.4
== END 2022-02-04 12:00 | disposition home or self-care (01) | DRG 773 ==
LOC: YASAS 15:59 → Y6N 19:59
PROVIDERS: ADMIT Allergy & Immunology; ATTEND Surgery
PROC: HZ2ZZZZ Detoxification Services for Substance Abuse Treatment (ICD-10-PCS; principal; 2022-01-30)
DX: F10.230 Alcohol dependence with withdrawal, uncomplicated (principal); F13.230 Sedative, hypnotic or anxiolytic dependence with withdrawal, uncomplicated; F11.20 Opioid dependence, uncomplicated; F12.10 Cannabis abuse, uncomplicated; F19.280 Other psychoactive substance dependence with psychoactive substance-induced anxiety disorder; F19.282 Other psychoactive substance dependence with psychoactive substance-induced sleep disorder; F19.24 Other psychoactive substance dependence with psychoactive substance-induced mood disorder; F41.8 Other specified anxiety disorders; F34.1 Dysthymic disorder; E78.00 Pure hypercholesterolemia, unspecified; K70.30 Alcoholic cirrhosis of liver without ascites; K75.4 Autoimmune hepatitis; K21.9 Gastro-esophageal reflux disease without esophagitis; L30.9 Dermatitis, unspecified; I10 Essential (primary) hypertension; R76.8 Other specified abnormal immunological findings in serum; Z87.891 Personal history of nicotine dependence
CPT/HCPCS: 36415; 80053; 82140; 84450; 84520; 85027; 86704; 86705; 86780; 86803; 87517; C9803-CS; U0003; U0005

== ENCOUNTER 2022-03-05 18:09 | Inpatient (IN) | payer OTHER ==
[2022-03-05 18:39] VITALS: BMI 21.7
[2022-03-05] MEDS ORDERED: LOPERAMIDE HCL 2 MG CAPSULE PO PRN (19:56)
[2022-03-05] MEDS ORDERED: BENZOCAINE/MENTHOL (CHLORASEPTIC ) LOZENGE MM PRN (19:56)
[2022-03-05] MEDS ORDERED: BISMUTH SUBSALICYLATE 524 MG/30 ML PO PRN (19:56)
[2022-03-05] MEDS ORDERED: MAG HYDROX/AL HYDROX/SIMETH 30 ML UNIT-DOSE CUP PO PRN (19:56)
[2022-03-05] MEDS ORDERED: ONDANSETRON *ODT* 4 MG TABLET SL PRN (19:56)
[2022-03-05] MEDS ORDERED: MAGNESIUM CITRATE 300 ML BOTTLE PO PRN (19:56)
[2022-03-05] MEDS ORDERED: DICYCLOMINE HCL 10 MG CAPSULE PO PRN (19:56)
[2022-03-05] MEDS ORDERED: IBUPROFEN 400 MG TABLET (FP) PO PRN (19:56)
[2022-03-05] MEDS ORDERED: MAGNESIUM HYDROX 2400MG/30ML ORAL SUSPENSION 30 ML CUP PO PRN (19:56)
[2022-03-05] MEDS: ATORVASTATIN CA 10 MG TABLET (FP) PO SCH (22:39)
[2022-03-05] MEDS: PRENATAL VITAMINS W/ FOLIC ACID TABLET (FP) PO SCH (22:39)
[2022-03-05] MEDS: amLODIPine BESYLATE 5 MG TABLET (FP) PO SCH (22:39)
[2022-03-05] MEDS: LACTULOSE 20 GM/30 ML UDC (FOR ORAL USE ONLY) PO SCH (22:40)
[2022-03-05] MEDS: MELATONIN 5 MG TABLETS PO SCH (22:40)
[2022-03-05] MEDS: THIAMINE HCL 100 MG TABLET (FP) PO SCH (22:40)
[2022-03-05] MEDS: FAMOTIDINE 20 MG TABLET PO SCH (22:40)
[2022-03-05] MEDS: LORazepam 1 MG TABLET PO PRN (22:40)
[2022-03-06] MEDS: LORazepam 1 MG TABLET PO SCH ×4 (05:33→22:29)
[2022-03-06] MEDS: IBUPROFEN 600 MG TABLET (FP) PO PRN (05:35)
[2022-03-06] MEDS: amLODIPine BESYLATE 5 MG TABLET (FP) PO SCH (10:05)
[2022-03-06] MEDS: LACTULOSE 20 GM/30 ML UDC (FOR ORAL USE ONLY) PO SCH ×4 (10:05→22:31)
[2022-03-06] MEDS: PRENATAL VITAMINS W/ FOLIC ACID TABLET (FP) PO SCH (10:06)
[2022-03-06] MEDS: FAMOTIDINE 20 MG TABLET PO SCH (10:06)
[2022-03-06] MEDS: hydrOXYzine PAMOATE 25 MG CAPSULE (FP) PO PRN (10:07)
[2022-03-06] MEDS ORDERED: AMMONIUM LACTATE 12% CREAM 140 GM TUBE TP PRN (10:17)
[2022-03-06] MEDS ORDERED: TRIAMCINOLONE ACET 0.1% OINT 15 GM TUBE TP PRN (10:17)
[2022-03-06] MEDS ORDERED: methaDONE HCL 10 MG TABLET PO ONE (10:54)
[2022-03-06 11:14] LABS: HEMATOCRIT 30.7 % (35.4-49); MCH 32.1 pg (25.7-33.7); MCHC 32.7 g/dl (32.0-35.9); MEAN CELL VOLUME 98.2 fl (80-96); MEAN PLT VOLUME 9.9 fl (7.5-11.1); PLATELET COUNT 273 10^3/uL (134-434); RBC 3.13 M/mm3 (4.00-5.60); RDW 15.2 % (11.9-15.9)
[2022-03-06 11:17] LABS: ALBUMIN 2.6 g/dl (3.4-5.0); BLOOD UREA NITROGEN 15.5 mg/dL (7-18)
[2022-03-06 11:19] LABS: CREATININE 1.1 mg/dL (0.55-1.3)
[2022-03-06 11:21] LABS: TOT PROT 6.7 g/dl (6.4-8.2)
[2022-03-06 11:24] LABS: BILIRUBIN,TOTAL 8.4 mg/dL (0.2-1)
[2022-03-06] MEDS: GABAPENTIN 300 MG CAPSULE PO SCH ×2 (13:46→22:28)
[2022-03-06] MEDS: LORazepam 1 MG TABLET PO PRN (13:47)
[2022-03-06] MEDS: ATORVASTATIN CA 10 MG TABLET (FP) PO SCH (22:28)
[2022-03-06] MEDS: MIRTAZAPINE 30 MG TABLET PO SCH (22:28)
[2022-03-06] MEDS: THIAMINE HCL 100 MG TABLET (FP) PO SCH (22:28)
[2022-03-06] MEDS: MELATONIN 5 MG TABLETS PO SCH (22:29)
[2022-03-07] MEDS: LORazepam 1 MG TABLET PO PRN ×2 (01:06→07:36)
[2022-03-07] MEDS: GABAPENTIN 300 MG CAPSULE PO SCH ×3 (05:32→22:12)
[2022-03-07] MEDS: LORazepam 0.5 MG TABLET PO SCH ×4 (05:33→22:13)
[2022-03-07] MEDS ORDERED: methaDONE HCL 40 MG DISPERSABLE TABLET PO SCH (06:00)
[2022-03-07] MEDS: LACTULOSE 20 GM/30 ML UDC (FOR ORAL USE ONLY) PO SCH ×4 (10:55→22:12)
[2022-03-07] MEDS: amLODIPine BESYLATE 5 MG TABLET (FP) PO SCH (10:55)
[2022-03-07] MEDS: FAMOTIDINE 20 MG TABLET PO SCH (10:55)
[2022-03-07] MEDS: PRENATAL VITAMINS W/ FOLIC ACID TABLET (FP) PO SCH (10:55)
[2022-03-07] MEDS: hydrOXYzine PAMOATE 25 MG CAPSULE (FP) PO PRN (17:20)
[2022-03-07] MEDS: THIAMINE HCL 100 MG TABLET (FP) PO SCH (22:12)
[2022-03-07] MEDS: ATORVASTATIN CA 10 MG TABLET (FP) PO SCH (22:12)
[2022-03-07] MEDS: MELATONIN 5 MG TABLETS PO SCH (22:12)
[2022-03-07] MEDS: MIRTAZAPINE 30 MG TABLET PO SCH (22:12)
[2022-03-08] MEDS: GABAPENTIN 300 MG CAPSULE PO SCH ×3 (05:42→23:13)
[2022-03-08] MEDS: LORazepam 0.5 MG TABLET PO PRN ×4 (05:45→20:53)
[2022-03-08] MEDS: IBUPROFEN 600 MG TABLET (FP) PO PRN (06:01)
[2022-03-08] MEDS: LACTULOSE 20 GM/30 ML UDC (FOR ORAL USE ONLY) PO SCH ×4 (10:16→23:12)
[2022-03-08] MEDS: amLODIPine BESYLATE 5 MG TABLET (FP) PO SCH (10:16)
[2022-03-08] MEDS: PRENATAL VITAMINS W/ FOLIC ACID TABLET (FP) PO SCH (10:16)
[2022-03-08] MEDS: FAMOTIDINE 20 MG TABLET PO SCH (10:16)
[2022-03-08] MEDS: LORazepam 0.5 MG TABLET PO SCH ×2 (10:16→23:11)
[2022-03-08] MEDS: hydrOXYzine PAMOATE 25 MG CAPSULE (FP) PO PRN (18:37)
[2022-03-08] MEDS: MIRTAZAPINE 30 MG TABLET PO SCH (23:12)
[2022-03-08] MEDS: THIAMINE HCL 100 MG TABLET (FP) PO SCH (23:13)
[2022-03-08] MEDS: ATORVASTATIN CA 10 MG TABLET (FP) PO SCH (23:13)
[2022-03-08] MEDS: MELATONIN 5 MG TABLETS PO SCH (23:56)
[2022-03-09] MEDS ORDERED: LORazepam 0.5 MG TABLET PO ONE (05:00)
[2022-03-09] MEDS: GABAPENTIN 300 MG CAPSULE PO SCH ×2 (05:40→13:06)
[2022-03-09 06:35] VITALS: RESP 18
[2022-03-09] MEDS: hydrOXYzine PAMOATE 25 MG CAPSULE (FP) PO PRN (06:46)
[2022-03-09] MEDS ORDERED: cloNIDine HCL 0.1 MG TABLET PO PRN (06:53)
[2022-03-09] MEDS: FAMOTIDINE 20 MG TABLET PO SCH (10:12)
[2022-03-09] MEDS: PRENATAL VITAMINS W/ FOLIC ACID TABLET (FP) PO SCH (10:12)
[2022-03-09] MEDS: amLODIPine BESYLATE 5 MG TABLET (FP) PO SCH (10:12)
[2022-03-09] MEDS: LORazepam 0.5 MG TABLET PO SCH (10:12)
[2022-03-09] MEDS: LACTULOSE 20 GM/30 ML UDC (FOR ORAL USE ONLY) PO SCH ×2 (10:12→13:06)
[2022-03-09 13:41] VITALS: BP 145/73; PULSE 72; TEMP 97.1
== END 2022-03-09 13:20 | disposition other institution (70) | DRG 773 ==
LOC: YASAS 18:09 → Y6N 21:30
PROVIDERS: ADMIT Allergy & Immunology; ATTEND Surgery
PROC: HZ2ZZZZ Detoxification Services for Substance Abuse Treatment (ICD-10-PCS; principal; 2022-03-05)
DX: F10.230 Alcohol dependence with withdrawal, uncomplicated (principal); F13.230 Sedative, hypnotic or anxiolytic dependence with withdrawal, uncomplicated; F11.20 Opioid dependence, uncomplicated; F19.280 Other psychoactive substance dependence with psychoactive substance-induced anxiety disorder; F19.282 Other psychoactive substance dependence with psychoactive substance-induced sleep disorder; F12.20 Cannabis dependence, uncomplicated; F34.1 Dysthymic disorder; I10 Essential (primary) hypertension; E78.00 Pure hypercholesterolemia, unspecified; K21.9 Gastro-esophageal reflux disease without esophagitis; Z87.19 Personal history of other diseases of the digestive system; Z91.018 Allergy to other foods; Z56.0 Unemployment, unspecified; Z59.00 Homelessness unspecified
CPT/HCPCS: 36415; 80053; 82962; 85027; 86780; 87811; C9803-CS; J0735; U0003; U0005

== ENCOUNTER 2022-03-09 12:12 | Inpatient (IN) | payer OTHER ==
[2022-03-09] MEDS ORDERED: NICOTINE 10 MG CARTRIDGE (INHALER) IH PRN (14:23)
[2022-03-09] MEDS ORDERED: LOPERAMIDE HCL 2 MG CAPSULE PO PRN (14:23)
[2022-03-09] MEDS ORDERED: guaiFENesin 200 MG/10 ML 10 ML UNIT-DOSE CUPS PO PRN (14:23)
[2022-03-09] MEDS ORDERED: MAGNESIUM CITRATE 300 ML BOTTLE PO PRN (14:23)
[2022-03-09] MEDS ORDERED: BENZOCAINE/MENTHOL (CHLORASEPTIC ) LOZENGE MM PRN (14:23)
[2022-03-09] MEDS ORDERED: P-EPHED 60MG/TRIPROLIDI 2.5MG TABLET PO PRN (14:23)
[2022-03-09] MEDS ORDERED: ACETAMINOPHEN 325 MG TABLET (FP) PO PRN (14:23)
[2022-03-09] MEDS ORDERED: MAGNESIUM HYDROX 2400MG/30ML ORAL SUSPENSION 30 ML CUP PO PRN (14:23)
[2022-03-09] MEDS ORDERED: MAG HYDROX/AL HYDROX/SIMETH 30 ML UNIT-DOSE CUP PO PRN (14:23)
[2022-03-09] MEDS ORDERED: NALOXONE (NARCAN) HCL 4 MG/0.1 ML SPRAY NS PRN (14:24)
[2022-03-09] MEDS: hydrOXYzine PAMOATE 25 MG CAPSULE (FP) PO SCH ×2 (17:11→21:12)
[2022-03-09] MEDS: IBUPROFEN 400 MG TABLET (FP) PO PRN (17:12)
[2022-03-09] MEDS: THIAMINE HCL 100 MG TABLET (FP) PO SCH (21:11)
[2022-03-09] MEDS: ATORVASTATIN CA 10 MG TABLET (FP) PO SCH (21:12)
[2022-03-09] MEDS ORDERED: MIRTAZAPINE 15 MG TABLET (FP) ONE (21:12)
[2022-03-09] MEDS: GABAPENTIN 300 MG CAPSULE PO SCH (21:12)
[2022-03-09] MEDS: MIRTAZAPINE 30 MG TABLET PO SCH (21:12)
[2022-03-09] MEDS ORDERED: MELATONIN 5 MG TABLETS PO SCH (22:00)
[2022-03-10] MEDS: GABAPENTIN 300 MG CAPSULE PO SCH ×3 (06:28→21:07)
[2022-03-10] MEDS: hydrOXYzine PAMOATE 25 MG CAPSULE (FP) PO SCH ×5 (06:28→21:10)
[2022-03-10] MEDS: FAMOTIDINE 20 MG TABLET PO SCH (09:42)
[2022-03-10] MEDS: amLODIPine BESYLATE 5 MG TABLET (FP) PO SCH (09:42)
[2022-03-10] MEDS: NICOTINE 7 MG/24 HOURS TOPICAL PATCH TD SCH (09:43)
[2022-03-10] MEDS: PRENATAL VITAMINS W/ FOLIC ACID TABLET (FP) PO SCH (09:43)
[2022-03-10] MEDS: IBUPROFEN 400 MG TABLET (FP) PO PRN (09:45)
[2022-03-10] MEDS ORDERED: METHADONE 130 MG PO SCH (10:00)
[2022-03-10] MEDS: LACTULOSE 20 GM/30 ML UDC (FOR ORAL USE ONLY) PO SCH ×4 (14:49→21:07)
[2022-03-10] MEDS ORDERED: AMMONIUM LACTATE 12% LOTION 225 GM BOTTLE TP PRN (18:48)
[2022-03-10] MEDS ORDERED: MIRTAZAPINE 15 MG TABLET (FP) ONE (19:33)
[2022-03-10] MEDS: THIAMINE HCL 100 MG TABLET (FP) PO SCH (21:09)
[2022-03-10] MEDS: ATORVASTATIN CA 10 MG TABLET (FP) PO SCH (21:09)
[2022-03-10] MEDS: MIRTAZAPINE 30 MG TABLET PO SCH (21:09)
[2022-03-11] MEDS: hydrOXYzine PAMOATE 25 MG CAPSULE (FP) PO SCH ×5 (06:21→21:20)
[2022-03-11] MEDS: GABAPENTIN 300 MG CAPSULE PO SCH ×3 (06:21→21:20)
[2022-03-11] MEDS: FAMOTIDINE 20 MG TABLET PO SCH (09:26)
[2022-03-11] MEDS: LACTULOSE 20 GM/30 ML UDC (FOR ORAL USE ONLY) PO SCH ×4 (09:26→21:21)
[2022-03-11] MEDS: amLODIPine BESYLATE 5 MG TABLET (FP) PO SCH (09:26)
[2022-03-11] MEDS: NICOTINE 7 MG/24 HOURS TOPICAL PATCH TD SCH (09:27)
[2022-03-11] MEDS: PRENATAL VITAMINS W/ FOLIC ACID TABLET (FP) PO SCH (09:27)
[2022-03-11] MEDS: IBUPROFEN 400 MG TABLET (FP) PO PRN (09:28)
[2022-03-11] MEDS ORDERED: MIRTAZAPINE 15 MG TABLET (FP) ONE (19:23)
[2022-03-11] MEDS: MIRTAZAPINE 30 MG TABLET PO SCH (21:20)
[2022-03-11] MEDS: ATORVASTATIN CA 10 MG TABLET (FP) PO SCH (21:20)
[2022-03-11] MEDS: THIAMINE HCL 100 MG TABLET (FP) PO SCH (21:20)
[2022-03-12] MEDS: GABAPENTIN 300 MG CAPSULE PO SCH ×3 (06:17→21:03)
[2022-03-12] MEDS: hydrOXYzine PAMOATE 25 MG CAPSULE (FP) PO SCH ×5 (06:17→21:04)
[2022-03-12] MEDS: LACTULOSE 20 GM/30 ML UDC (FOR ORAL USE ONLY) PO SCH ×4 (09:52→21:03)
[2022-03-12] MEDS: NICOTINE 7 MG/24 HOURS TOPICAL PATCH TD SCH (09:52)
[2022-03-12] MEDS: amLODIPine BESYLATE 5 MG TABLET (FP) PO SCH (09:52)
[2022-03-12] MEDS: PRENATAL VITAMINS W/ FOLIC ACID TABLET (FP) PO SCH (09:53)
[2022-03-12] MEDS: FAMOTIDINE 20 MG TABLET PO SCH (09:53)
[2022-03-12] MEDS: IBUPROFEN 400 MG TABLET (FP) PO PRN (09:54)
[2022-03-12] MEDS ORDERED: COLLOIDAL OATMEAL 1 BAR EACH TP PRN (10:56)
[2022-03-12] MEDS: predniSONE 20 MG TABLET (UD) PO SCH (11:45)
[2022-03-12] MEDS: HYDROCORTISONE 1% TOPICAL OINT 30 GM TUBE TP SCH (13:21)
[2022-03-12] MEDS: URSODIOL 300 MG CAPSULE PO SCH ×2 (13:21→21:03)
[2022-03-12] MEDS ORDERED: MIRTAZAPINE 15 MG TABLET (FP) ONE (18:50)
[2022-03-12 19:00] LABS: EPI CELLS 1 /uL (0-25.1); HYALINE CASTS 0 /uL (0-3.1); PH,URINE 6.5 (5.0-8.0); URINE APPEARANCE CLEAR; URINE BACTERIA 9 /uL (0-1359); URINE BILIRUBIN 3+ (NEGATIVE); URINE COLOR DK YELLOW; URINE GLUCOSE (UA) NEGATIVE (NEGATIVE); URINE KETONE TRACE (NEGATIVE); URINE LEUK ESTERASE TRACE (NEGATIVE); URINE NITRITE NEGATIVE (NEGATIVE); URINE PROTEIN NEGATIVE (NEGATIVE); URINE RBC 8 /uL (0-23.9); URINE WBC 1 /uL (0-25.8)
[2022-03-12] MEDS: THIAMINE HCL 100 MG TABLET (FP) PO SCH (21:03)
[2022-03-12] MEDS: ATORVASTATIN CA 10 MG TABLET (FP) PO SCH (21:03)
[2022-03-12] MEDS: MIRTAZAPINE 30 MG TABLET PO SCH (21:04)
[2022-03-13] MEDS: GABAPENTIN 300 MG CAPSULE PO SCH ×3 (06:21→21:14)
[2022-03-13] MEDS: URSODIOL 300 MG CAPSULE PO SCH ×3 (06:21→21:14)
[2022-03-13] MEDS: hydrOXYzine PAMOATE 25 MG CAPSULE (FP) PO SCH ×3 (06:22→13:29)
[2022-03-13] MEDS: amLODIPine BESYLATE 5 MG TABLET (FP) PO SCH (09:49)
[2022-03-13] MEDS: LACTULOSE 20 GM/30 ML UDC (FOR ORAL USE ONLY) PO SCH ×4 (09:49→21:28)
[2022-03-13] MEDS: predniSONE 20 MG TABLET (UD) PO SCH (09:49)
[2022-03-13] MEDS: PRENATAL VITAMINS W/ FOLIC ACID TABLET (FP) PO SCH (09:50)
[2022-03-13] MEDS: NICOTINE 7 MG/24 HOURS TOPICAL PATCH TD SCH (09:50)
[2022-03-13] MEDS: HYDROCORTISONE 1% TOPICAL OINT 30 GM TUBE TP SCH (09:51)
[2022-03-13] MEDS ORDERED: CHOLESTYRAMINE/SUCROSE 4 GM PACKET PO SCH (17:00)
[2022-03-13] MEDS ORDERED: CALAMINE 8% TOPICAL LOTION 177 ML BOTTLE TP PRN (17:01)
[2022-03-13] MEDS ORDERED: MIRTAZAPINE 15 MG TABLET (FP) ONE (18:20)
[2022-03-13] MEDS: THIAMINE HCL 100 MG TABLET (FP) PO SCH (21:12)
[2022-03-13] MEDS: DOXEPIN HCL 25 MG CAPSULE PO SCH (21:14)
[2022-03-13] MEDS: MIRTAZAPINE 30 MG TABLET PO SCH (21:14)
[2022-03-13] MEDS: CHOLESTYRAMINE/SUCROSE 4 GM PACKET PO SCH (21:14)
[2022-03-13] MEDS: ATORVASTATIN CA 10 MG TABLET (FP) PO SCH (21:14)
[2022-03-14] MEDS: GABAPENTIN 300 MG CAPSULE PO SCH ×3 (06:41→21:18)
[2022-03-14] MEDS: URSODIOL 300 MG CAPSULE PO SCH ×3 (06:41→21:18)
[2022-03-14] MEDS: predniSONE 20 MG TABLET (UD) PO SCH (06:41)
[2022-03-14] MEDS: LACTULOSE 20 GM/30 ML UDC (FOR ORAL USE ONLY) PO SCH ×4 (09:40→21:18)
[2022-03-14] MEDS: FERROUS SO4 325 MG TABLET (FP) PO SCH (09:41)
[2022-03-14] MEDS: amLODIPine BESYLATE 5 MG TABLET (FP) PO SCH (09:42)
[2022-03-14] MEDS: PRENATAL VITAMINS W/ FOLIC ACID TABLET (FP) PO SCH (09:42)
[2022-03-14] MEDS: NICOTINE 7 MG/24 HOURS TOPICAL PATCH TD SCH (09:42)
[2022-03-14 12:06] LABS: HEMOGLOBIN 11.8 GM/dL (11.7-16.9); MCH 33.3 pg (25.7-33.7); MCHC 34.8 g/dl (32.0-35.9); MEAN CELL VOLUME 95.8 fl (80-96); MEAN PLT VOLUME 9.3 fl (7.5-11.1); PLATELET COUNT 423 10^3/uL (134-434); RBC 3.55 M/mm3 (4.00-5.60); RDW 14.6 % (11.9-15.9); WHITE BLOOD COUNT 7.7 K/mm3 (4.0-10.0)
[2022-03-14 12:19] LABS: CALCIUM 9.4 mg/dL (8.5-10.1)
[2022-03-14 12:20] LABS: ALBUMIN 3.1 g/dl (3.4-5.0); BLOOD UREA NITROGEN 13.5 mg/dL (7-18)
[2022-03-14 12:21] LABS: TOT PROT 8.3 g/dl (6.4-8.2)
[2022-03-14 12:22] LABS: BILIRUBIN,TOTAL 7.9 mg/dL (0.2-1)
[2022-03-14] MEDS ORDERED: TRIAMCINOLONE 0.1% TP SCH (12:30)
[2022-03-14 12:32] LABS: BILIRUBIN,DIRECT 7.3 mg/dL (0.0-0.2)
[2022-03-14 12:33] LABS: BILIRUBIN,TOTAL 8.2 mg/dL (0.2-1); TOT PROT 8.5 g/dl (6.4-8.2)
[2022-03-14 12:35] LABS: ALBUMIN 3.2 g/dl (3.4-5.0)
[2022-03-14] MEDS: TRIAMCINOLONE ACET 0.1% OINT 15 GM TUBE TP SCH (13:14)
[2022-03-14] MEDS: CHOLESTYRAMINE/SUCROSE 4 GM PACKET PO SCH (17:31)
[2022-03-14] MEDS ORDERED: MIRTAZAPINE 15 MG TABLET (FP) ONE (18:47)
[2022-03-14] MEDS: ATORVASTATIN CA 10 MG TABLET (FP) PO SCH (21:18)
[2022-03-14] MEDS: THIAMINE HCL 100 MG TABLET (FP) PO SCH (21:18)
[2022-03-14] MEDS: MIRTAZAPINE 30 MG TABLET PO SCH (21:18)
[2022-03-14] MEDS: DOXEPIN HCL 25 MG CAPSULE PO SCH (21:18)
[2022-03-15] MEDS: GABAPENTIN 300 MG CAPSULE PO SCH ×2 (06:05→13:58)
[2022-03-15] MEDS: URSODIOL 300 MG CAPSULE PO SCH ×2 (06:05→13:57)
[2022-03-15] MEDS: predniSONE 20 MG TABLET (UD) PO SCH (06:05)
[2022-03-15] MEDS: LACTULOSE 20 GM/30 ML UDC (FOR ORAL USE ONLY) PO SCH ×3 (09:26→18:48)
[2022-03-15] MEDS: PRENATAL VITAMINS W/ FOLIC ACID TABLET (FP) PO SCH (09:26)
[2022-03-15] MEDS: amLODIPine BESYLATE 5 MG TABLET (FP) PO SCH (09:26)
[2022-03-15] MEDS: TRIAMCINOLONE ACET 0.1% OINT 15 GM TUBE TP SCH (09:26)
[2022-03-15] MEDS: NICOTINE 7 MG/24 HOURS TOPICAL PATCH TD SCH (09:26)
[2022-03-15] MEDS: FERROUS SO4 325 MG TABLET (FP) PO SCH (09:26)
[2022-03-15 10:07] VITALS: BP 128/78; PULSE 67; RESP 18; TEMP 97.8
[2022-03-15] MEDS: CHOLESTYRAMINE/SUCROSE 4 GM PACKET PO SCH (18:48)
== END 2022-03-15 18:50 | disposition short-term general hospital (02) | DRG 772 ==
LOC: YASAS 12:12 → Y3E 12:14
PROVIDERS: ADMIT Allergy & Immunology; ATTEND Psychiatry & Neurology Pain Medicine
PROC: HZ42ZZZ Group Counseling for Substance Abuse Treatment, Cognitive-Behavioral (ICD-10-PCS; principal; 2022-03-09)
DX: F10.20 Alcohol dependence, uncomplicated (principal); F11.20 Opioid dependence, uncomplicated; F13.20 Sedative, hypnotic or anxiolytic dependence, uncomplicated; F31.9 Bipolar disorder, unspecified; F41.9 Anxiety disorder, unspecified; I10 Essential (primary) hypertension; K74.60 Unspecified cirrhosis of liver; K75.4 Autoimmune hepatitis; L30.9 Dermatitis, unspecified; L29.8 Other pruritus
CPT/HCPCS: 36415; 80053; 80076; 81003; 82140; 85027

== ENCOUNTER 2022-03-15 10:05 | Emergency (ER) | payer OTHER ==
[2022-03-15 10:13] VITALS: BMI 22.4
[2022-03-15] MEDS ORDERED: methylPREDNISolone NA SUCC 125 MG/2 ML VIAL IVPUSH ONE (10:46)
[2022-03-15] MEDS ORDERED: methylPREDNISolone NA SUCC 125 MG/2 ML VIAL ONE (11:08)
[2022-03-15] MEDS ORDERED: IBUPROFEN 400 MG TABLET (FP) PO ONE ×2 (11:18→11:50)
[2022-03-15 11:30] LABS: BASO % 0.9 % (0-2.0); EOS % 0.5 % (0-4.5); HEMATOCRIT 31.4 % (35.4-49); HEMOGLOBIN 10.9 GM/dL (11.7-16.9); LYMPH % 17.2 % (8-40); MCH 32.6 pg (25.7-33.7); MCHC 34.7 g/dl (32.0-35.9); MEAN CELL VOLUME 94.1 fl (80-96); MONO % 3.7 % (3.8-10.2); NEUT % 77.7 % (42.8-82.8); PLATELET COUNT 401 10^3/uL (134-434); RBC 3.34 M/mm3 (4.00-5.60); RDW 14.3 % (11.9-15.9); WHITE BLOOD COUNT 7.5 K/mm3 (4.0-10.0)
[2022-03-15 11:51] LABS: CALCIUM 9.6 mg/dL (8.5-10.1); MAGNESIUM 2.1 mg/dL (1.8-2.4)
[2022-03-15 11:52] LABS: ALBUMIN 3.1 g/dl (3.4-5.0); BLOOD UREA NITROGEN 16.2 mg/dL (7-18)
[2022-03-15 11:54] LABS: CREATININE 1.1 mg/dL (0.55-1.3)
[2022-03-15 11:55] LABS: PHOSPHOROUS 3.7 mg/dL (2.5-4.9); TOT PROT 8.3 g/dl (6.4-8.2)
[2022-03-15 11:57] LABS: BILIRUBIN,TOTAL 7.4 mg/dL (0.2-1)
[2022-03-15 12:51] LABS: EPI CELLS 1 /uL (0-25.1); HYALINE CASTS 0 /uL (0-3.1); PH,URINE 5.5 (5.0-8.0); URINE APPEARANCE CLEAR; URINE BACTERIA 39 /uL (0-1359); URINE BILIRUBIN 3+ (NEGATIVE); URINE COLOR DK YELLOW; URINE GLUCOSE (UA) NEGATIVE (NEGATIVE); URINE KETONE TRACE (NEGATIVE); URINE LEUK ESTERASE TRACE (NEGATIVE); URINE NITRITE NEGATIVE (NEGATIVE); URINE PROTEIN TRACE (NEGATIVE); URINE RBC 8 /uL (0-23.9); URINE WBC 2 /uL (0-25.8)
[2022-03-15] MEDS ORDERED: GABAPENTIN 300 MG CAPSULE PO ONE (14:54)
[2022-03-15] MEDS ORDERED: LACTULOSE 20 GM/30 ML UDC (FOR ORAL USE ONLY) PO ONE (14:55)
[2022-03-15] MEDS ORDERED: hydrOXYzine PAMOATE 25 MG CAPSULE (FP) PO ONE ×2 (14:55→15:34)
[2022-03-15] MEDS ORDERED: LACTULOSE 20 GM/30 ML UDC (FOR ORAL USE ONLY) ONE (15:34)
[2022-03-15] MEDS ORDERED: GABAPENTIN 300 MG CAPSULE ONE (15:35)
[2022-03-15 18:38] VITALS: BP 143/88; PULSE 70; RESP 20; TEMP 98
== END 2022-03-15 18:25 ==
LOC: JER 10:05
PROC: 3E033GC Introduction of Other Therapeutic Substance into Peripheral Vein, Percutaneous Approach (ICD-10-PCS; principal; 2022-03-15)
DX: R74.01 Elevation of levels of liver transaminase levels (principal)
CPT/HCPCS: 74177-TC; 80053; 81003; 82140; 82248; 83615; 83690; 83735; 84100; 85025; 86850; 86900; 86901; 87086; 93005; 93010; 99285-25; C9803-CS; U0003; U0005

== ENCOUNTER 2022-04-11 18:39 | Inpatient (IN) | payer OTHER ==
[2022-04-11 19:30] VITALS: BMI 18.6
[2022-04-11] MEDS ORDERED: MAGNESIUM HYDROX 2400MG/30ML ORAL SUSPENSION 30 ML CUP PO PRN (21:39)
[2022-04-11] MEDS ORDERED: MAG HYDROX/AL HYDROX/SIMETH 30 ML UNIT-DOSE CUP PO PRN (21:39)
[2022-04-11] MEDS ORDERED: P-EPHED 60MG/TRIPROLIDI 2.5MG TABLET PO PRN (21:39)
[2022-04-11] MEDS ORDERED: guaiFENesin 200 MG/10 ML 10 ML UNIT-DOSE CUPS PO PRN (21:39)
[2022-04-11] MEDS ORDERED: MAGNESIUM CITRATE 300 ML BOTTLE PO PRN (21:39)
[2022-04-11] MEDS ORDERED: BENZOCAINE/MENTHOL (CHLORASEPTIC ) LOZENGE MM PRN (21:39)
[2022-04-11] MEDS ORDERED: LOPERAMIDE HCL 2 MG CAPSULE PO PRN (21:39)
[2022-04-11] MEDS ORDERED: MIRTAZAPINE 15 MG TABLET (FP) PO ONE ×2 (22:00→22:30)
[2022-04-11] MEDS: THIAMINE HCL 100 MG TABLET (FP) PO SCH (22:23)
[2022-04-11] MEDS: hydrOXYzine PAMOATE 25 MG CAPSULE (FP) PO PRN (22:23)
[2022-04-11] MEDS: GABAPENTIN 300 MG CAPSULE PO SCH (22:23)
[2022-04-11] MEDS: LACTULOSE 20 GM/30 ML UDC (FOR ORAL USE ONLY) PO SCH (22:27)
[2022-04-11] MEDS: URSODIOL 300 MG CAPSULE PO SCH (23:45)
[2022-04-12] MEDS ORDERED: METHADONE 130 MG PO SCH (06:00)
[2022-04-12] MEDS: URSODIOL 300 MG CAPSULE PO SCH ×3 (06:30→23:14)
[2022-04-12] MEDS: GABAPENTIN 300 MG CAPSULE PO SCH ×3 (06:30→21:07)
[2022-04-12] MEDS: predniSONE 5 MG TABLET (UD) PO SCH (10:05)
[2022-04-12] MEDS: amLODIPine BESYLATE 5 MG TABLET (FP) PO SCH (10:06)
[2022-04-12] MEDS: LACTULOSE 20 GM/30 ML UDC (FOR ORAL USE ONLY) PO SCH ×4 (10:06→21:06)
[2022-04-12] MEDS: PRENATAL VITAMINS W/ FOLIC ACID TABLET (FP) PO SCH (10:06)
[2022-04-12] MEDS: hydrOXYzine PAMOATE 25 MG CAPSULE (FP) PO PRN ×2 (10:08→21:07)
[2022-04-12 12:05] LABS: EPI CELLS 0 /uL (0-25.1); HYALINE CASTS 0 /uL (0-3.1); PH,URINE 5.5 (5.0-8.0); URINE APPEARANCE CLEAR; URINE BACTERIA 1 /uL (0-1359); URINE BILIRUBIN 3+ (NEGATIVE); URINE COLOR DK YELLOW; URINE GLUCOSE (UA) NEGATIVE (NEGATIVE); URINE KETONE NEGATIVE (NEGATIVE); URINE LEUK ESTERASE TRACE (NEGATIVE); URINE NITRITE NEGATIVE (NEGATIVE); URINE PROTEIN 1+ (NEGATIVE); URINE RBC 6 /uL (0-23.9); URINE WBC 3 /uL (0-25.8)
[2022-04-12] MEDS ORDERED: COLLOIDAL OATMEAL 1 BAR EACH TP PRN (12:06)
[2022-04-12] MEDS: MINERAL OIL/PETROLAT/WATER TOPICAL CREAM 113 GM JAR TP SCH (14:12)
[2022-04-12] MEDS: AMMONIUM LACTATE 12% LOTION 225 GM BOTTLE TP PRN (16:01)
[2022-04-12] MEDS: CHOLESTYRAMINE/SUCROSE 4 GM PACKET PO SCH (17:06)
[2022-04-12] MEDS: THIAMINE HCL 100 MG TABLET (FP) PO SCH (21:06)
[2022-04-12] MEDS: MELATONIN 5 MG TABLETS PO PRN (21:06)
[2022-04-13] MEDS: GABAPENTIN 300 MG CAPSULE PO SCH ×3 (06:20→21:13)
[2022-04-13] MEDS: URSODIOL 300 MG CAPSULE PO SCH ×3 (06:20→21:13)
[2022-04-13] MEDS: predniSONE 5 MG TABLET (UD) PO SCH (10:05)
[2022-04-13] MEDS: PRENATAL VITAMINS W/ FOLIC ACID TABLET (FP) PO SCH (10:06)
[2022-04-13] MEDS: MINERAL OIL/PETROLAT/WATER TOPICAL CREAM 113 GM JAR TP SCH (10:07)
[2022-04-13] MEDS: hydrOXYzine PAMOATE 25 MG CAPSULE (FP) PO PRN ×2 (10:07→21:13)
[2022-04-13] MEDS: amLODIPine BESYLATE 5 MG TABLET (FP) PO SCH (10:07)
[2022-04-13] MEDS: LACTULOSE 20 GM/30 ML UDC (FOR ORAL USE ONLY) PO SCH ×4 (10:07→21:14)
[2022-04-13] MEDS: AMMONIUM LACTATE 12% LOTION 225 GM BOTTLE TP PRN (10:08)
[2022-04-13] MEDS: CHOLESTYRAMINE/SUCROSE 4 GM PACKET PO SCH ×2 (11:01→18:05)
[2022-04-13] MEDS: THIAMINE HCL 100 MG TABLET (FP) PO SCH (21:13)
[2022-04-13] MEDS: MIRTAZAPINE 15 MG TABLET (FP) PO SCH (21:14)
[2022-04-14] MEDS: GABAPENTIN 300 MG CAPSULE PO SCH ×3 (06:32→21:03)
[2022-04-14] MEDS: URSODIOL 300 MG CAPSULE PO SCH ×3 (06:32→21:03)
[2022-04-14] MEDS: predniSONE 5 MG TABLET (UD) PO SCH (09:54)
[2022-04-14] MEDS: LACTULOSE 20 GM/30 ML UDC (FOR ORAL USE ONLY) PO SCH ×4 (09:54→21:03)
[2022-04-14] MEDS: CHOLESTYRAMINE/SUCROSE 4 GM PACKET PO SCH ×2 (09:54→19:05)
[2022-04-14] MEDS: PRENATAL VITAMINS W/ FOLIC ACID TABLET (FP) PO SCH (09:55)
[2022-04-14] MEDS: amLODIPine BESYLATE 5 MG TABLET (FP) PO SCH (09:55)
[2022-04-14] MEDS: MINERAL OIL/PETROLAT/WATER TOPICAL CREAM 113 GM JAR TP SCH (10:12)
[2022-04-14] MEDS: MIRTAZAPINE 15 MG TABLET (FP) PO SCH (21:03)
[2022-04-14] MEDS: MELATONIN 5 MG TABLETS PO PRN (21:03)
[2022-04-14] MEDS: THIAMINE HCL 100 MG TABLET (FP) PO SCH (21:03)
[2022-04-14] MEDS: IBUPROFEN 400 MG TABLET (FP) PO PRN (21:05)
[2022-04-15] MEDS: predniSONE 10 MG TABLET (UD) PO SCH (06:23)
[2022-04-15] MEDS: URSODIOL 300 MG CAPSULE PO SCH ×3 (06:23→21:03)
[2022-04-15] MEDS: GABAPENTIN 300 MG CAPSULE PO SCH ×3 (06:23→21:03)
[2022-04-15] MEDS: CHOLESTYRAMINE/SUCROSE 4 GM PACKET PO SCH ×2 (07:24→17:50)
[2022-04-15] MEDS: LACTULOSE 20 GM/30 ML UDC (FOR ORAL USE ONLY) PO SCH ×4 (09:56→21:04)
[2022-04-15] MEDS: amLODIPine BESYLATE 5 MG TABLET (FP) PO SCH (09:57)
[2022-04-15] MEDS: PRENATAL VITAMINS W/ FOLIC ACID TABLET (FP) PO SCH (09:57)
[2022-04-15] MEDS: MINERAL OIL/PETROLAT/WATER TOPICAL CREAM 113 GM JAR TP SCH (09:57)
[2022-04-15] MEDS ORDERED: predniSONE 10 MG TABLET (UD) PO SCH (10:00)
[2022-04-15] MEDS: IBUPROFEN 400 MG TABLET (FP) PO PRN (15:25)
[2022-04-15] MEDS: THIAMINE HCL 100 MG TABLET (FP) PO SCH (21:03)
[2022-04-15] MEDS: MELATONIN 5 MG TABLETS PO PRN (21:03)
[2022-04-15] MEDS ORDERED: MIRTAZAPINE 15 MG TABLET (FP) ONE (21:04)
[2022-04-15] MEDS: MIRTAZAPINE 30 MG TABLET PO SCH (21:05)
[2022-04-16] MEDS: GABAPENTIN 300 MG CAPSULE PO SCH ×3 (06:18→21:17)
[2022-04-16] MEDS: URSODIOL 300 MG CAPSULE PO SCH ×3 (06:18→21:18)
[2022-04-16] MEDS: predniSONE 10 MG TABLET (UD) PO SCH (06:19)
[2022-04-16] MEDS: CHOLESTYRAMINE/SUCROSE 4 GM PACKET PO SCH ×2 (07:08→17:40)
[2022-04-16] MEDS: amLODIPine BESYLATE 5 MG TABLET (FP) PO SCH (09:47)
[2022-04-16] MEDS: PRENATAL VITAMINS W/ FOLIC ACID TABLET (FP) PO SCH (09:47)
[2022-04-16] MEDS: MINERAL OIL/PETROLAT/WATER TOPICAL CREAM 113 GM JAR TP SCH (09:48)
[2022-04-16] MEDS: LACTULOSE 20 GM/30 ML UDC (FOR ORAL USE ONLY) PO SCH ×5 (09:48→21:18)
[2022-04-16] MEDS: hydrOXYzine PAMOATE 25 MG CAPSULE (FP) PO PRN ×2 (09:49→21:16)
[2022-04-16 13:33] LABS: CALCIUM 9.5 mg/dL (8.5-10.1)
[2022-04-16 13:34] LABS: ALBUMIN 2.9 g/dl (3.4-5.0); BLOOD UREA NITROGEN 13.5 mg/dL (7-18)
[2022-04-16 13:37] LABS: CREATININE 0.8 mg/dL (0.55-1.3)
[2022-04-16 13:38] LABS: TOT PROT 7.2 g/dl (6.4-8.2)
[2022-04-16 13:39] LABS: BILIRUBIN,TOTAL 5.5 mg/dL (0.2-1)
[2022-04-16] MEDS ORDERED: MIRTAZAPINE 15 MG TABLET (FP) ONE (19:16)
[2022-04-16] MEDS: THIAMINE HCL 100 MG TABLET (FP) PO SCH (21:16)
[2022-04-16] MEDS: MELATONIN 5 MG TABLETS PO PRN (21:16)
[2022-04-16] MEDS: MIRTAZAPINE 30 MG TABLET PO SCH (21:17)
[2022-04-17] MEDS: GABAPENTIN 300 MG CAPSULE PO SCH ×3 (06:24→21:09)
[2022-04-17] MEDS: predniSONE 10 MG TABLET (UD) PO SCH (06:24)
[2022-04-17] MEDS: URSODIOL 300 MG CAPSULE PO SCH ×3 (06:24→21:10)
[2022-04-17] MEDS: hydrOXYzine PAMOATE 25 MG CAPSULE (FP) PO PRN ×3 (06:26→21:09)
[2022-04-17] MEDS: CHOLESTYRAMINE/SUCROSE 4 GM PACKET PO SCH ×2 (07:03→17:32)
[2022-04-17] MEDS: LACTULOSE 20 GM/30 ML UDC (FOR ORAL USE ONLY) PO SCH ×4 (10:10→21:10)
[2022-04-17] MEDS: amLODIPine BESYLATE 5 MG TABLET (FP) PO SCH (10:10)
[2022-04-17] MEDS: MINERAL OIL/PETROLAT/WATER TOPICAL CREAM 113 GM JAR TP SCH (10:10)
[2022-04-17] MEDS: PRENATAL VITAMINS W/ FOLIC ACID TABLET (FP) PO SCH (10:10)
[2022-04-17] MEDS ORDERED: MIRTAZAPINE 15 MG TABLET (FP) ONE (19:41)
[2022-04-17] MEDS: THIAMINE HCL 100 MG TABLET (FP) PO SCH (21:09)
[2022-04-17] MEDS: MIRTAZAPINE 30 MG TABLET PO SCH (21:10)
[2022-04-17] MEDS: MELATONIN 5 MG TABLETS PO PRN (21:10)
[2022-04-18] MEDS: URSODIOL 300 MG CAPSULE PO SCH ×3 (06:20→21:03)
[2022-04-18] MEDS: GABAPENTIN 300 MG CAPSULE PO SCH ×3 (06:20→21:02)
[2022-04-18] MEDS: predniSONE 10 MG TABLET (UD) PO SCH (06:20)
[2022-04-18] MEDS ORDERED: cloNIDine HCL 0.1 MG TABLET PO ONE (07:07)
[2022-04-18] MEDS: CHOLESTYRAMINE/SUCROSE 4 GM PACKET PO SCH ×2 (07:14→17:16)
[2022-04-18] MEDS: LACTULOSE 20 GM/30 ML UDC (FOR ORAL USE ONLY) PO SCH ×4 (10:01→21:02)
[2022-04-18] MEDS: PRENATAL VITAMINS W/ FOLIC ACID TABLET (FP) PO SCH (10:02)
[2022-04-18] MEDS: MINERAL OIL/PETROLAT/WATER TOPICAL CREAM 113 GM JAR TP SCH (10:02)
[2022-04-18] MEDS: amLODIPine BESYLATE 5 MG TABLET (FP) PO SCH (10:02)
[2022-04-18] MEDS: hydrOXYzine PAMOATE 25 MG CAPSULE (FP) PO PRN ×2 (10:03→21:03)
[2022-04-18] MEDS ORDERED: MIRTAZAPINE 15 MG TABLET (FP) ONE (19:20)
[2022-04-18] MEDS: THIAMINE HCL 100 MG TABLET (FP) PO SCH (21:02)
[2022-04-18] MEDS: MIRTAZAPINE 30 MG TABLET PO SCH (21:03)
[2022-04-18] MEDS: IBUPROFEN 400 MG TABLET (FP) PO PRN (21:05)
[2022-04-19] MEDS: GABAPENTIN 300 MG CAPSULE PO SCH (06:14)
[2022-04-19] MEDS: URSODIOL 300 MG CAPSULE PO SCH (06:15)
[2022-04-19] MEDS: predniSONE 10 MG TABLET (UD) PO SCH (06:15)
[2022-04-19] MEDS: hydrOXYzine PAMOATE 25 MG CAPSULE (FP) PO PRN (06:16)
[2022-04-19 06:44] VITALS: RESP 20; TEMP 98.4
[2022-04-19] MEDS: CHOLESTYRAMINE/SUCROSE 4 GM PACKET PO SCH (07:00)
[2022-04-19 09:11] VITALS: BP 147/90; PULSE 70
[2022-04-19] MEDS: amLODIPine BESYLATE 5 MG TABLET (FP) PO SCH (09:13)
[2022-04-19] MEDS: PRENATAL VITAMINS W/ FOLIC ACID TABLET (FP) PO SCH (09:13)
[2022-04-19] MEDS: MINERAL OIL/PETROLAT/WATER TOPICAL CREAM 113 GM JAR TP SCH (09:13)
[2022-04-19] MEDS: LACTULOSE 20 GM/30 ML UDC (FOR ORAL USE ONLY) PO SCH (09:13)
[2022-04-22] MEDS ORDERED: predniSONE 5 MG TABLET (UD) PO SCH ×2 (06:00→10:00)
== END 2022-04-19 10:48 | disposition home or self-care (01) | DRG 772 ==
LOC: YASAS 18:39 → Y3E 21:19
PROVIDERS: ADMIT Allergy & Immunology; ATTEND Psychiatry & Neurology Pain Medicine
PROC: HZ42ZZZ Group Counseling for Substance Abuse Treatment, Cognitive-Behavioral (ICD-10-PCS; principal; 2022-04-11)
DX: F11.20 Opioid dependence, uncomplicated (principal); F10.20 Alcohol dependence, uncomplicated; F13.20 Sedative, hypnotic or anxiolytic dependence, uncomplicated; F12.20 Cannabis dependence, uncomplicated; F19.280 Other psychoactive substance dependence with psychoactive substance-induced anxiety disorder; F19.282 Other psychoactive substance dependence with psychoactive substance-induced sleep disorder; F34.1 Dysthymic disorder; I10 Essential (primary) hypertension; K21.9 Gastro-esophageal reflux disease without esophagitis; K70.30 Alcoholic cirrhosis of liver without ascites; L85.3 Xerosis cutis; L30.9 Dermatitis, unspecified; R79.89 Other specified abnormal findings of blood chemistry; Z87.19 Personal history of other diseases of the digestive system
CPT/HCPCS: 36415; 80053; 81003

== ENCOUNTER 2022-05-29 13:27 | Inpatient (IN) | payer OTHER ==
[2022-05-29 14:34] VITALS: BMI 21.9
[2022-05-29] MEDS ORDERED: MAGNESIUM HYDROX 2400MG/30ML ORAL SUSPENSION 30 ML CUP PO PRN (14:58)
[2022-05-29] MEDS ORDERED: MAG HYDROX/AL HYDROX/SIMETH 30 ML UNIT-DOSE CUP PO PRN (14:58)
[2022-05-29] MEDS ORDERED: IBUPROFEN 400 MG TABLET (FP) PO PRN (14:58)
[2022-05-29] MEDS ORDERED: BENZOCAINE/MENTHOL (CHLORASEPTIC ) LOZENGE MM PRN (14:58)
[2022-05-29] MEDS ORDERED: ACETAMINOPHEN 325 MG TABLET (FP) PO PRN ×2 (14:58)
[2022-05-29] MEDS ORDERED: NICOTINE 10 MG CARTRIDGE (INHALER) IH PRN (14:58)
[2022-05-29] MEDS ORDERED: MAGNESIUM CITRATE 300 ML BOTTLE PO PRN (14:58)
[2022-05-29] MEDS ORDERED: DICYCLOMINE HCL 10 MG CAPSULE PO PRN (14:58)
[2022-05-29] MEDS ORDERED: METHOCARBAMOL 500 MG TABLET PO PRN (14:58)
[2022-05-29] MEDS ORDERED: IBUPROFEN 600 MG TABLET (FP) PO PRN (14:58)
[2022-05-29] MEDS ORDERED: ONDANSETRON *ODT* 4 MG TABLET SL PRN (14:58)
[2022-05-29] MEDS ORDERED: BISMUTH SUBSALICYLATE 524 MG/30 ML PO PRN (14:58)
[2022-05-29] MEDS ORDERED: LOPERAMIDE HCL 2 MG CAPSULE PO PRN (14:58)
[2022-05-29] MEDS ORDERED: NALOXONE HCL (KLOXXADO) 8 MG SPRAY NS PRN (14:58)
[2022-05-29] MEDS ORDERED: AMMONIUM LACTATE 12% LOTION 225 GM BOTTLE TP PRN (18:54)
[2022-05-29] MEDS ORDERED: COLLOIDAL OATMEAL 1 BAR EACH TP PRN (18:56)
[2022-05-29] MEDS: PRENATAL VITAMINS W/ FOLIC ACID TABLET (FP) PO SCH (18:58)
[2022-05-29 20:56] VITALS: RESP 18
[2022-05-29] MEDS: THIAMINE HCL 100 MG TABLET (FP) PO SCH (21:35)
[2022-05-29] MEDS: MELATONIN 5 MG TABLETS PO SCH (21:35)
[2022-05-30] MEDS: hydrOXYzine PAMOATE 25 MG CAPSULE (FP) PO PRN ×2 (06:07→10:10)
[2022-05-30] MEDS ORDERED: methaDONE HCL 10 MG TABLET PO ONE (09:16)
[2022-05-30] MEDS ORDERED: amLODIPine BESYLATE 5 MG TABLET (FP) PO SCH (10:00)
[2022-05-30] MEDS: PRENATAL VITAMINS W/ FOLIC ACID TABLET (FP) PO SCH (10:05)
[2022-05-30 10:31] LABS: HEMATOCRIT 29.1 % (35.4-49); HEMOGLOBIN 9.5 GM/dL (11.7-16.9); MCH 30.5 pg (25.7-33.7); MCHC 32.5 g/dl (32.0-35.9); MEAN CELL VOLUME 93.6 fl (80-96); MEAN PLT VOLUME 9.6 fl (7.5-11.1); PLATELET COUNT 334 10^3/uL (134-434); RBC 3.11 M/mm3 (4.00-5.60); RDW 14.7 % (11.9-15.9); WHITE BLOOD COUNT 7.5 K/mm3 (4.0-10.0)
[2022-05-30 10:41] LABS: ALBUMIN 2.6 g/dl (3.4-5.0); BLOOD UREA NITROGEN 9.7 mg/dL (7-18); CALCIUM 9.3 mg/dL (8.5-10.1)
[2022-05-30 10:44] LABS: CREATININE 0.8 mg/dL (0.55-1.3)
[2022-05-30 10:45] LABS: BILIRUBIN,TOTAL 5.9 mg/dL (0.2-1)
[2022-05-30 15:14] VITALS: BP 152/95; PULSE 52; TEMP 97.7
[2022-05-30] MEDS: THIAMINE HCL 100 MG TABLET (FP) PO SCH (23:28)
[2022-05-30] MEDS: MELATONIN 5 MG TABLETS PO SCH (23:28)
[2022-05-31] MEDS ORDERED: methaDONE HCL 10 MG TABLET PO SCH (06:00)
== END 2022-05-30 23:45 | disposition short-term general hospital (02) | DRG 772 ==
LOC: YASAS 13:27 → Y3W 18:26
PROVIDERS: ADMIT Allergy & Immunology; ATTEND Psychiatry & Neurology Pain Medicine
PROC: HZ42ZZZ Group Counseling for Substance Abuse Treatment, Cognitive-Behavioral (ICD-10-PCS; principal; 2022-05-29)
DX: F10.20 Alcohol dependence, uncomplicated (principal); F11.20 Opioid dependence, uncomplicated; F13.20 Sedative, hypnotic or anxiolytic dependence, uncomplicated; F15.20 Other stimulant dependence, uncomplicated; F31.9 Bipolar disorder, unspecified; K75.4 Autoimmune hepatitis; L30.9 Dermatitis, unspecified; R74.8 Abnormal levels of other serum enzymes; Z87.891 Personal history of nicotine dependence
CPT/HCPCS: 36415; 80053; 85027; 86780; C9803-CS; U0003; U0005

== ENCOUNTER 2022-05-30 16:36 | Inpatient (IN) | payer OTHER ==
[2022-05-30 17:57] VITALS: BMI 20.9
[2022-05-30] MEDS ORDERED: SODIUM CHLORIDE 0.9% 500 ML INFUS.BAG IV ONE (18:33)
[2022-05-30 21:12] LABS: BASO % 1.2 % (0-2.0); HEMATOCRIT 31.2 % (35.4-49); HEMOGLOBIN 10.3 GM/dL (11.7-16.9); LYMPH % 19.6 % (8-40); MCH 30.9 pg (25.7-33.7); MCHC 33.1 g/dl (32.0-35.9); MEAN CELL VOLUME 93.5 fl (80-96); MEAN PLT VOLUME 9.5 fl (7.5-11.1); MONO % 9.3 % (3.8-10.2); NEUT % 55.9 % (42.8-82.8); PLATELET COUNT 316 10^3/uL (134-434); RBC 3.34 M/mm3 (4.00-5.60); RDW 14.8 % (11.9-15.9)
[2022-05-30 21:12] LABS: ALBUMIN 2.6 g/dl (3.4-5.0); BLOOD UREA NITROGEN 10.6 mg/dL (7-18); CALCIUM 9.5 mg/dL (8.5-10.1)
[2022-05-30 21:15] LABS: BILIRUBIN,DIRECT 4.2 mg/dL (0.0-0.2); CREATININE 0.9 mg/dL (0.55-1.3)
[2022-05-30 21:17] LABS: BILIRUBIN,TOTAL 6.4 mg/dL (0.2-1); TOT PROT 7.9 g/dl (6.4-8.2)
[2022-05-30] MEDS ORDERED: LORazepam 0.5 MG TABLET PO ONE (22:22)
[2022-05-30] MEDS ORDERED: LORazepam 0.5 MG TABLET ONE (22:37)
[2022-05-30 23:46] LABS: PH,URINE 5.5 (5.0-8.0); URINE APPEARANCE CLEAR; URINE BILIRUBIN 2+ (NEGATIVE); URINE COLOR DK YELLOW; URINE GLUCOSE (UA) NEGATIVE (NEGATIVE); URINE KETONE NEGATIVE (NEGATIVE); URINE LEUK ESTERASE NEGATIVE (NEGATIVE); URINE NITRITE NEGATIVE (NEGATIVE); URINE PROTEIN NEGATIVE (NEGATIVE); URINE UROBILINOGEN 0.2 mg/dL (0.2-1.0)
[2022-05-30 23:54] LABS: COCAINE, UR NEGATIVE (NEGATIVE); OPIATES, URI NEGATIVE (NEGATIVE); PHENCYCLIDINE,URINE NEGATIVE (NEGATIVE); URINE AMPHETAMINES NEGATIVE (NEGATIVE); URINE BENZODIAZEPINES NEGATIVE (NEGATIVE)
[2022-05-31 00:03] LABS: METHADONE, UR POSITIVE (NEGATIVE); URINE BARBITURATES NEGATIVE (NEGATIVE)
[2022-05-31] MEDS ORDERED: LORazepam 1 MG TABLET PO PRN (00:40)
[2022-05-31] MEDS ORDERED: MAG HYDROX/AL HYDROX/SIMETH 30 ML UNIT-DOSE CUP PO ONE (02:37)
[2022-05-31] MEDS ORDERED: LORazepam 2 MG TABLET PO SCH (05:00)
[2022-05-31] MEDS ORDERED: LORazepam 1 MG TABLET ONE ×2 (05:08→10:25)
[2022-05-31] MEDS ORDERED: URSODIOL 500 MG PO SCH (06:00)
[2022-05-31] MEDS ORDERED: LORazepam 1 MG TABLET PO SCH (06:27)
[2022-05-31 07:09] LABS: HEMATOCRIT 28.5 % (35.4-49); HEMOGLOBIN 9.8 GM/dL (11.7-16.9); MCH 31.6 pg (25.7-33.7); MCHC 34.2 g/dl (32.0-35.9); MEAN CELL VOLUME 92.3 fl (80-96); MEAN PLT VOLUME 9.3 fl (7.5-11.1); PLATELET COUNT 335 10^3/uL (134-434); RBC 3.09 M/mm3 (4.00-5.60); RDW 14.4 % (11.9-15.9); WHITE BLOOD COUNT 7.9 K/mm3 (4.0-10.0)
[2022-05-31 07:12] LABS: INR 1.34 (0.83-1.09); PROTHROMBIN TIME (PATIENT) 15.4 SEC (9.7-13.0)
[2022-05-31 07:27] LABS: ALBUMIN 2.5 g/dl (3.4-5.0); BLOOD UREA NITROGEN 5.9 mg/dL (7-18); CALCIUM 9.2 mg/dL (8.5-10.1); MAGNESIUM 1.9 mg/dL (1.8-2.4)
[2022-05-31 07:31] LABS: CREATININE 0.7 mg/dL (0.55-1.3); PHOSPHOROUS 3.1 mg/dL (2.5-4.9)
[2022-05-31 09:58] LABS: BILIRUBIN,DIRECT 5.4 mg/dL (0.0-0.2)
[2022-05-31] MEDS ORDERED: FOLIC ACID 1 MG TABLET (FP) PO SCH (10:00)
[2022-05-31] MEDS ORDERED: MULTIVITAMINS (DAILY MVI) TABLET (FP) PO SCH (10:00)
[2022-05-31] MEDS ORDERED: ENOXAPARIN NA (PORCINE) 40 MG/0.4 ML DISP.SYRIN SQ SCH (10:00)
[2022-05-31] MEDS ORDERED: CYANOCOBALAMIN 1,000 MCG TABLET (FP) PO SCH (10:00)
[2022-05-31] MEDS ORDERED: FOLIC ACID 1 MG TABLET (FP) ONE (10:25)
[2022-05-31] MEDS ORDERED: methaDONE HCL 40 MG DISPERSABLE TABLET ONE (10:25)
[2022-05-31] MEDS ORDERED: methaDONE HCL 10 MG TABLET ONE (10:25)
[2022-05-31] MEDS ORDERED: ENOXAPARIN NA (PORCINE) 40 MG/0.4 ML DISP.SYRIN SQ ONE (10:26)
[2022-05-31] MEDS ORDERED: MULTIVITAMINS (DAILY MVI) TABLET (FP) ONE (10:26)
[2022-05-31 12:32] VITALS: BP 140/78; PULSE 62; RESP 19
[2022-05-31 12:37] VITALS: TEMP 98.6
[2022-06-01] MEDS ORDERED: LORazepam 1 MG TABLET PO SCH (05:00)
[2022-06-02] MEDS ORDERED: LORazepam 0.5 MG TABLET PO PRN
[2022-06-02] MEDS ORDERED: LORazepam 0.5 MG TABLET PO SCH (05:00)
[2022-06-03] MEDS ORDERED: LORazepam 0.5 MG TABLET PO ONE (05:00)
== END 2022-05-31 13:30 | disposition short-term general hospital (02) ==
LOC: JER 16:36 → JERBED 21:28
PROVIDERS: ADMIT Internal Medicine; ATTEND Internal Medicine
DX: K83.01 Primary sclerosing cholangitis (principal); I10 Essential (primary) hypertension; R94.5 Abnormal results of liver function studies; D64.9 Anemia, unspecified; E78.5 Hyperlipidemia, unspecified; L30.9 Dermatitis, unspecified; K74.60 Unspecified cirrhosis of liver; F11.10 Opioid abuse, uncomplicated; F13.10 Sedative, hypnotic or anxiolytic abuse, uncomplicated; R10.11 Right upper quadrant pain
CPT/HCPCS: 36415; 76705-TC; 80053; 80307; 81003; 82140; 82150; 82248; 82977; 83615; 83690; 83735; 84100; 85025; 85027; 85610; 93005; 93010; 99285-25

== ENCOUNTER 2022-06-01 20:40 | Inpatient (IN) | payer OTHER ==
[2022-06-01 21:14] VITALS: BMI 19.6
[2022-06-01] MEDS ORDERED: MAGNESIUM CITRATE 300 ML BOTTLE PO PRN (23:23)
[2022-06-01] MEDS ORDERED: MAGNESIUM HYDROX 2400MG/30ML ORAL SUSPENSION 30 ML CUP PO PRN (23:23)
[2022-06-01] MEDS ORDERED: guaiFENesin 200 MG/10 ML 10 ML UNIT-DOSE CUPS PO PRN (23:23)
[2022-06-01] MEDS ORDERED: P-EPHED 60MG/TRIPROLIDI 2.5MG TABLET PO PRN (23:23)
[2022-06-01] MEDS ORDERED: ACETAMINOPHEN 325 MG TABLET (FP) PO PRN (23:23)
[2022-06-01] MEDS ORDERED: LOPERAMIDE HCL 2 MG CAPSULE PO PRN (23:23)
[2022-06-02] MEDS: MELATONIN 5 MG TABLETS PO SCH ×2 (03:26→21:20)
[2022-06-02] MEDS ORDERED: GABAPENTIN 300 MG CAPSULE PO ONE (08:31)
[2022-06-02] MEDS ORDERED: methaDONE HCL 10 MG TABLET PO ONE (09:01)
[2022-06-02] MEDS: hydrOXYzine PAMOATE 25 MG CAPSULE (FP) PO PRN ×2 (09:28→21:20)
[2022-06-02] MEDS: PRENATAL VITAMINS W/ FOLIC ACID TABLET (FP) PO SCH (09:28)
[2022-06-02 11:09] LABS: HEMOGLOBIN 10.6 GM/dL (11.7-16.9); MCH 30.7 pg (25.7-33.7); MCHC 33.1 g/dl (32.0-35.9); MEAN CELL VOLUME 92.7 fl (80-96); MEAN PLT VOLUME 9.4 fl (7.5-11.1); PLATELET COUNT 480 10^3/uL (134-434); RBC 3.45 M/mm3 (4.00-5.60); RDW 14.3 % (11.9-15.9); WHITE BLOOD COUNT 7.7 K/mm3 (4.0-10.0)
[2022-06-02 11:15] LABS: ALBUMIN 2.7 g/dl (3.4-5.0); CALCIUM 9.6 mg/dL (8.5-10.1)
[2022-06-02 11:18] LABS: CREATININE 0.9 mg/dL (0.55-1.3)
[2022-06-02 11:20] LABS: BILIRUBIN,TOTAL 7.5 mg/dL (0.2-1); TOT PROT 8.1 g/dl (6.4-8.2)
[2022-06-02] MEDS: GABAPENTIN 300 MG CAPSULE PO SCH ×2 (13:04→21:20)
[2022-06-02 18:04] LABS: EPI CELLS 1 /uL (0-25.1); HYALINE CASTS 0 /uL (0-3.1); URINE APPEARANCE Error; URINE BACTERIA 2 /uL (0-1359); URINE BILIRUBIN 3+ (NEGATIVE); URINE COLOR DK YELLOW; URINE GLUCOSE (UA) NEGATIVE (NEGATIVE); URINE KETONE NEGATIVE (NEGATIVE); URINE LEUK ESTERASE TRACE (NEGATIVE); URINE NITRITE NEGATIVE (NEGATIVE); URINE PROTEIN TRACE (NEGATIVE); URINE RBC 14 /uL (0-23.9); URINE WBC 3 /uL (0-25.8)
[2022-06-02] MEDS: THIAMINE HCL 100 MG TABLET (FP) PO SCH (21:19)
[2022-06-02] MEDS: MIRTAZAPINE 15 MG TABLET (FP) PO SCH (21:21)
[2022-06-02] MEDS: MAG HYDROX/AL HYDROX/SIMETH 30 ML UNIT-DOSE CUP PO PRN (21:25)
[2022-06-03] MEDS ORDERED: methaDONE HCL 10 MG TABLET PO SCH (06:00)
[2022-06-03] MEDS: GABAPENTIN 300 MG CAPSULE PO SCH ×3 (06:08→21:01)
[2022-06-03] MEDS: hydrOXYzine PAMOATE 25 MG CAPSULE (FP) PO PRN ×3 (06:09→21:01)
[2022-06-03] MEDS: PRENATAL VITAMINS W/ FOLIC ACID TABLET (FP) PO SCH (09:36)
[2022-06-03] MEDS: MAG HYDROX/AL HYDROX/SIMETH 30 ML UNIT-DOSE CUP PO PRN (09:38)
[2022-06-03] MEDS: THIAMINE HCL 100 MG TABLET (FP) PO SCH (21:01)
[2022-06-03] MEDS: MELATONIN 5 MG TABLETS PO SCH (21:01)
[2022-06-03] MEDS: MIRTAZAPINE 15 MG TABLET (FP) PO SCH (21:02)
[2022-06-04] MEDS: GABAPENTIN 300 MG CAPSULE PO SCH ×3 (06:00→21:09)
[2022-06-04] MEDS: hydrOXYzine PAMOATE 25 MG CAPSULE (FP) PO PRN (06:02)
[2022-06-04] MEDS: PRENATAL VITAMINS W/ FOLIC ACID TABLET (FP) PO SCH (10:19)
[2022-06-04] MEDS ORDERED: NALOXONE (NARCAN) HCL 4 MG/0.1 ML SPRAY NS PRN (14:15)
[2022-06-04] MEDS ORDERED: AMMONIUM LACTATE 12% CREAM 140 GM TUBE TP PRN (14:15)
[2022-06-04] MEDS: MAG HYDROX/AL HYDROX/SIMETH 30 ML UNIT-DOSE CUP PO PRN (14:38)
[2022-06-04] MEDS: predniSONE 20 MG TABLET (UD) PO SCH (15:11)
[2022-06-04] MEDS: LACTULOSE 20 GM/30 ML UDC (FOR ORAL USE ONLY) PO SCH ×2 (17:41→21:09)
[2022-06-04] MEDS: MELATONIN 5 MG TABLETS PO SCH (21:08)
[2022-06-04] MEDS: THIAMINE HCL 100 MG TABLET (FP) PO SCH (21:08)
[2022-06-04] MEDS: PRAVASTATIN 10 MG PO SCH (21:09)
[2022-06-04] MEDS: CHOLESTYRAMINE/SUCROSE 4 GM PACKET PO SCH (21:11)
[2022-06-04] MEDS: MIRTAZAPINE 15 MG TABLET (FP) PO SCH (21:11)
[2022-06-04] MEDS: URSODIOL 500 MG PO SCH (21:12)
[2022-06-04] MEDS: SENNOSIDES 8.6MG TABLET (FP) PO SCH (21:12)
[2022-06-04] MEDS ORDERED: PATIENT'S OWN MEDICATION (NON-FORMULARY) (Gabapentin [Neurontin] 600 MG Tablet) PO SCH (22:00)
[2022-06-04] MEDS ORDERED: hydrOXYzine PAMOATE 50 MG CAPSULE (FP) PO SCH (22:00)
[2022-06-04] MEDS ORDERED: ATORVASTATIN CA 10 MG TABLET (FP) PO SCH (22:00)
[2022-06-05] MEDS: GABAPENTIN 300 MG CAPSULE PO SCH ×3 (05:59→21:02)
[2022-06-05] MEDS: URSODIOL 500 MG PO SCH ×3 (06:01→21:01)
[2022-06-05] MEDS: hydrOXYzine PAMOATE 25 MG CAPSULE (FP) PO PRN (06:01)
[2022-06-05] MEDS: LACTULOSE 20 GM/30 ML UDC (FOR ORAL USE ONLY) PO SCH ×4 (09:43→21:01)
[2022-06-05] MEDS: predniSONE 20 MG TABLET (UD) PO SCH (09:44)
[2022-06-05] MEDS: PRENATAL VITAMINS W/ FOLIC ACID TABLET (FP) PO SCH (09:45)
[2022-06-05] MEDS: FERROUS SO4 325 MG TABLET (FP) PO SCH (09:45)
[2022-06-05] MEDS: amLODIPine BESYLATE 5 MG TABLET (FP) PO SCH (09:45)
[2022-06-05] MEDS: ASCORBIC ACID 500 MG TABLET (FP) PO SCH (10:53)
[2022-06-05] MEDS: CHOLESTYRAMINE/SUCROSE 4 GM PACKET PO SCH ×2 (10:53→21:03)
[2022-06-05] MEDS: THIAMINE HCL 100 MG TABLET (FP) PO SCH (21:01)
[2022-06-05] MEDS: MIRTAZAPINE 15 MG TABLET (FP) PO SCH (21:01)
[2022-06-05] MEDS: MELATONIN 5 MG TABLETS PO SCH (21:01)
[2022-06-05] MEDS: SENNOSIDES 8.6MG TABLET (FP) PO SCH (21:01)
[2022-06-05] MEDS: PRAVASTATIN 10 MG PO SCH (21:02)
[2022-06-06] MEDS: GABAPENTIN 300 MG CAPSULE PO SCH ×3 (06:27→21:29)
[2022-06-06] MEDS: URSODIOL 500 MG PO SCH ×3 (06:27→21:30)
[2022-06-06] MEDS: hydrOXYzine PAMOATE 25 MG CAPSULE (FP) PO PRN ×3 (06:29→21:29)
[2022-06-06] MEDS: LACTULOSE 20 GM/30 ML UDC (FOR ORAL USE ONLY) PO SCH ×4 (09:37→21:28)
[2022-06-06] MEDS: FERROUS SO4 325 MG TABLET (FP) PO SCH (09:38)
[2022-06-06] MEDS: PRENATAL VITAMINS W/ FOLIC ACID TABLET (FP) PO SCH (09:38)
[2022-06-06] MEDS: amLODIPine BESYLATE 5 MG TABLET (FP) PO SCH (09:38)
[2022-06-06] MEDS: predniSONE 20 MG TABLET (UD) PO SCH (09:38)
[2022-06-06] MEDS: ASCORBIC ACID 500 MG TABLET (FP) PO SCH (09:39)
[2022-06-06] MEDS: CHOLESTYRAMINE/SUCROSE 4 GM PACKET PO SCH ×2 (09:39→21:30)
[2022-06-06] MEDS: IBUPROFEN 400 MG TABLET (FP) PO PRN (13:08)
[2022-06-06] MEDS: MELATONIN 5 MG TABLETS PO SCH (21:28)
[2022-06-06] MEDS: THIAMINE HCL 100 MG TABLET (FP) PO SCH (21:28)
[2022-06-06] MEDS: SENNOSIDES 8.6MG TABLET (FP) PO SCH (21:30)
[2022-06-06] MEDS: PRAVASTATIN 10 MG PO SCH (21:30)
[2022-06-06] MEDS: MAG HYDROX/AL HYDROX/SIMETH 30 ML UNIT-DOSE CUP PO PRN (21:30)
[2022-06-06] MEDS: MIRTAZAPINE 15 MG TABLET (FP) PO SCH (21:30)
[2022-06-07] MEDS: GABAPENTIN 300 MG CAPSULE PO SCH ×3 (05:59→21:25)
[2022-06-07] MEDS: hydrOXYzine PAMOATE 25 MG CAPSULE (FP) PO PRN ×2 (06:00→21:25)
[2022-06-07] MEDS: URSODIOL 500 MG PO SCH ×3 (06:00→21:26)
[2022-06-07] MEDS: amLODIPine BESYLATE 5 MG TABLET (FP) PO SCH (10:23)
[2022-06-07] MEDS: predniSONE 20 MG TABLET (UD) PO SCH (10:23)
[2022-06-07] MEDS: LACTULOSE 20 GM/30 ML UDC (FOR ORAL USE ONLY) PO SCH ×4 (10:23→21:26)
[2022-06-07] MEDS: FERROUS SO4 325 MG TABLET (FP) PO SCH (10:23)
[2022-06-07] MEDS: CHOLESTYRAMINE/SUCROSE 4 GM PACKET PO SCH ×2 (10:24→21:26)
[2022-06-07] MEDS: PRENATAL VITAMINS W/ FOLIC ACID TABLET (FP) PO SCH (10:24)
[2022-06-07] MEDS: ASCORBIC ACID 500 MG TABLET (FP) PO SCH (10:24)
[2022-06-07] MEDS: MELATONIN 5 MG TABLETS PO SCH (21:25)
[2022-06-07] MEDS: THIAMINE HCL 100 MG TABLET (FP) PO SCH (21:25)
[2022-06-07] MEDS: PRAVASTATIN 10 MG PO SCH (21:26)
[2022-06-07] MEDS: MIRTAZAPINE 15 MG TABLET (FP) PO SCH (21:26)
[2022-06-07] MEDS: SENNOSIDES 8.6MG TABLET (FP) PO SCH (21:26)
[2022-06-07] MEDS ORDERED: URSODIOL 300 MG CAPSULE PO SCH (22:00)
[2022-06-08] MEDS: URSODIOL 500 MG PO SCH ×3 (06:02→18:28)
[2022-06-08] MEDS: GABAPENTIN 300 MG CAPSULE PO SCH ×3 (06:02→21:00)
[2022-06-08] MEDS: hydrOXYzine PAMOATE 25 MG CAPSULE (FP) PO PRN ×3 (06:03→21:00)
[2022-06-08] MEDS: LACTULOSE 20 GM/30 ML UDC (FOR ORAL USE ONLY) PO SCH ×4 (09:38→22:19)
[2022-06-08] MEDS: CHOLESTYRAMINE/SUCROSE 4 GM PACKET PO SCH ×2 (09:38→22:21)
[2022-06-08] MEDS: FERROUS SO4 325 MG TABLET (FP) PO SCH (09:39)
[2022-06-08] MEDS: PRENATAL VITAMINS W/ FOLIC ACID TABLET (FP) PO SCH (09:39)
[2022-06-08] MEDS: amLODIPine BESYLATE 5 MG TABLET (FP) PO SCH (09:39)
[2022-06-08] MEDS: ASCORBIC ACID 500 MG TABLET (FP) PO SCH (09:39)
[2022-06-08] MEDS: predniSONE 20 MG TABLET (UD) PO SCH (10:29)
[2022-06-08 12:29] LABS: CALCIUM 10.3 mg/dL (8.5-10.1)
[2022-06-08 12:30] LABS: ALBUMIN 2.8 g/dl (3.4-5.0); BLOOD UREA NITROGEN 13.5 mg/dL (7-18)
[2022-06-08 12:34] LABS: TOT PROT 8.5 g/dl (6.4-8.2)
[2022-06-08 12:36] LABS: BILIRUBIN,TOTAL 8.8 mg/dL (0.2-1)
[2022-06-08] MEDS: THIAMINE HCL 100 MG TABLET (FP) PO SCH (21:00)
[2022-06-08] MEDS: IBUPROFEN 400 MG TABLET (FP) PO PRN (21:01)
[2022-06-08] MEDS: MELATONIN 5 MG TABLETS PO SCH (22:19)
[2022-06-08] MEDS: PRAVASTATIN 10 MG PO SCH (22:20)
[2022-06-08] MEDS: SENNOSIDES 8.6MG TABLET (FP) PO SCH (22:21)
[2022-06-08] MEDS: MIRTAZAPINE 15 MG TABLET (FP) PO SCH (22:21)
[2022-06-09] MEDS: GABAPENTIN 300 MG CAPSULE PO SCH ×3 (06:06→21:03)
[2022-06-09] MEDS: hydrOXYzine PAMOATE 25 MG CAPSULE (FP) PO PRN ×2 (06:07→21:03)
[2022-06-09] MEDS: URSODIOL 500 MG PO SCH (06:11)
[2022-06-09] MEDS: LACTULOSE 20 GM/30 ML UDC (FOR ORAL USE ONLY) PO SCH ×4 (10:05→21:04)
[2022-06-09] MEDS: predniSONE 20 MG TABLET (UD) PO SCH (10:08)
[2022-06-09] MEDS: FERROUS SO4 325 MG TABLET (FP) PO SCH (10:08)
[2022-06-09] MEDS: ASCORBIC ACID 500 MG TABLET (FP) PO SCH (10:08)
[2022-06-09] MEDS: CHOLESTYRAMINE/SUCROSE 4 GM PACKET PO SCH ×2 (10:08→21:04)
[2022-06-09] MEDS: amLODIPine BESYLATE 5 MG TABLET (FP) PO SCH (10:08)
[2022-06-09] MEDS: URSODIOL 300 MG CAPSULE PO SCH ×2 (12:11→17:40)
[2022-06-09] MEDS: MAG HYDROX/AL HYDROX/SIMETH 30 ML UNIT-DOSE CUP PO PRN (17:43)
[2022-06-09] MEDS: SENNOSIDES 8.6MG TABLET (FP) PO SCH (21:03)
[2022-06-09] MEDS: THIAMINE HCL 100 MG TABLET (FP) PO SCH (21:03)
[2022-06-09] MEDS: MELATONIN 5 MG TABLETS PO SCH (21:03)
[2022-06-09] MEDS: PRAVASTATIN 10 MG PO SCH (21:04)
[2022-06-09] MEDS: MIRTAZAPINE 15 MG TABLET (FP) PO SCH (21:04)
[2022-06-10] MEDS: URSODIOL 300 MG CAPSULE PO SCH ×3 (06:06→18:20)
[2022-06-10] MEDS: GABAPENTIN 300 MG CAPSULE PO SCH ×3 (06:06→21:01)
[2022-06-10] MEDS: LACTULOSE 20 GM/30 ML UDC (FOR ORAL USE ONLY) PO SCH ×5 (09:48→21:03)
[2022-06-10] MEDS: FERROUS SO4 325 MG TABLET (FP) PO SCH (09:48)
[2022-06-10] MEDS: predniSONE 20 MG TABLET (UD) PO SCH (09:48)
[2022-06-10] MEDS: CHOLESTYRAMINE/SUCROSE 4 GM PACKET PO SCH ×2 (09:49→21:03)
[2022-06-10] MEDS: amLODIPine BESYLATE 5 MG TABLET (FP) PO SCH (09:49)
[2022-06-10] MEDS: ASCORBIC ACID 500 MG TABLET (FP) PO SCH (09:50)
[2022-06-10] MEDS: SENNOSIDES 8.6MG TABLET (FP) PO SCH (21:02)
[2022-06-10] MEDS: hydrOXYzine PAMOATE 25 MG CAPSULE (FP) PO PRN (21:02)
[2022-06-10] MEDS: THIAMINE HCL 100 MG TABLET (FP) PO SCH (21:02)
[2022-06-10] MEDS: MIRTAZAPINE 15 MG TABLET (FP) PO SCH (21:02)
[2022-06-10] MEDS: PRAVASTATIN 10 MG PO SCH (21:03)
[2022-06-10] MEDS: MELATONIN 5 MG TABLETS PO SCH (21:03)
[2022-06-10] MEDS ORDERED: URSODIOL 300 MG CAPSULE PO SCH (22:00)
[2022-06-11] MEDS: GABAPENTIN 300 MG CAPSULE PO SCH ×3 (06:12→21:02)
[2022-06-11] MEDS: URSODIOL 300 MG CAPSULE PO SCH ×3 (06:12→17:19)
[2022-06-11] MEDS: hydrOXYzine PAMOATE 25 MG CAPSULE (FP) PO PRN (06:13)
[2022-06-11] MEDS ORDERED: SENNOSIDES 8.6MG TABLET (FP) PO PRN (08:56)
[2022-06-11] MEDS: LACTULOSE 20 GM/30 ML UDC (FOR ORAL USE ONLY) PO SCH ×4 (09:31→21:02)
[2022-06-11] MEDS: predniSONE 20 MG TABLET (UD) PO SCH (09:32)
[2022-06-11] MEDS: FERROUS SO4 325 MG TABLET (FP) PO SCH (09:32)
[2022-06-11] MEDS: amLODIPine BESYLATE 5 MG TABLET (FP) PO SCH (09:32)
[2022-06-11] MEDS: CHOLESTYRAMINE/SUCROSE 4 GM PACKET PO SCH ×2 (09:32→21:03)
[2022-06-11] MEDS: ASCORBIC ACID 500 MG TABLET (FP) PO SCH (09:32)
[2022-06-11 10:28] LABS: BLOOD UREA NITROGEN 17.1 mg/dL (7-18); CALCIUM 10.4 mg/dL (8.5-10.1)
[2022-06-11 10:33] LABS: BILIRUBIN,TOTAL 8.3 mg/dL (0.2-1); TOT PROT 8.7 g/dl (6.4-8.2)
[2022-06-11] MEDS: THIAMINE HCL 100 MG TABLET (FP) PO SCH (21:02)
[2022-06-11] MEDS: MELATONIN 5 MG TABLETS PO PRN (21:02)
[2022-06-11] MEDS: MIRTAZAPINE 15 MG TABLET (FP) PO SCH (21:02)
[2022-06-11] MEDS: PRAVASTATIN 10 MG PO SCH (21:03)
[2022-06-12] MEDS ORDERED: INSULIN (LEVEMIR) 100 UNITS/ML UNITS SQ ONE (01:59)
[2022-06-12] MEDS: URSODIOL 300 MG CAPSULE PO SCH ×3 (06:14→18:16)
[2022-06-12] MEDS: GABAPENTIN 300 MG CAPSULE PO SCH ×3 (06:14→21:12)
[2022-06-12] MEDS: hydrOXYzine PAMOATE 25 MG CAPSULE (FP) PO PRN (06:16)
[2022-06-12] MEDS: FERROUS SO4 325 MG TABLET (FP) PO SCH (09:32)
[2022-06-12] MEDS: amLODIPine BESYLATE 5 MG TABLET (FP) PO SCH (09:32)
[2022-06-12] MEDS: LACTULOSE 20 GM/30 ML UDC (FOR ORAL USE ONLY) PO SCH ×4 (09:32→21:15)
[2022-06-12] MEDS: predniSONE 20 MG TABLET (UD) PO SCH (09:32)
[2022-06-12] MEDS: CHOLESTYRAMINE/SUCROSE 4 GM PACKET PO SCH ×2 (09:33→21:42)
[2022-06-12] MEDS: ASCORBIC ACID 500 MG TABLET (FP) PO SCH (09:33)
[2022-06-12] MEDS: MAG HYDROX/AL HYDROX/SIMETH 30 ML UNIT-DOSE CUP PO PRN (17:39)
[2022-06-12] MEDS: MELATONIN 5 MG TABLETS PO PRN (21:13)
[2022-06-12] MEDS: THIAMINE HCL 100 MG TABLET (FP) PO SCH (21:13)
[2022-06-12] MEDS: MIRTAZAPINE 15 MG TABLET (FP) PO SCH (21:13)
[2022-06-12] MEDS: PRAVASTATIN 10 MG PO SCH (21:15)
[2022-06-13] MEDS: URSODIOL 300 MG CAPSULE PO SCH ×3 (06:17→19:08)
[2022-06-13] MEDS: GABAPENTIN 300 MG CAPSULE PO SCH ×3 (06:18→21:08)
[2022-06-13] MEDS: hydrOXYzine PAMOATE 25 MG CAPSULE (FP) PO PRN ×2 (06:19→21:07)
[2022-06-13] MEDS: LACTULOSE 20 GM/30 ML UDC (FOR ORAL USE ONLY) PO SCH ×4 (09:52→21:07)
[2022-06-13] MEDS: amLODIPine BESYLATE 5 MG TABLET (FP) PO SCH (09:53)
[2022-06-13] MEDS: CHOLESTYRAMINE/SUCROSE 4 GM PACKET PO SCH ×2 (09:53→21:08)
[2022-06-13] MEDS: FERROUS SO4 325 MG TABLET (FP) PO SCH (09:53)
[2022-06-13] MEDS: predniSONE 20 MG TABLET (UD) PO SCH (09:54)
[2022-06-13] MEDS: ASCORBIC ACID 500 MG TABLET (FP) PO SCH (09:54)
[2022-06-13] MEDS ORDERED: COLLOIDAL OATMEAL 1 BAR EACH TP PRN (12:00)
[2022-06-13] MEDS: DOCUSATE SODIUM 100 MG CAPSULE (FP) PO SCH ×2 (13:15→21:07)
[2022-06-13] MEDS: MAG HYDROX/AL HYDROX/SIMETH 30 ML UNIT-DOSE CUP PO PRN (16:31)
[2022-06-13] MEDS: MELATONIN 5 MG TABLETS PO PRN (21:06)
[2022-06-13] MEDS: THIAMINE HCL 100 MG TABLET (FP) PO SCH (21:06)
[2022-06-13] MEDS: MIRTAZAPINE 15 MG TABLET (FP) PO SCH (21:07)
[2022-06-13] MEDS: PRAVASTATIN 10 MG PO SCH (21:08)
[2022-06-14] MEDS: GABAPENTIN 300 MG CAPSULE PO SCH ×3 (06:22→21:21)
[2022-06-14] MEDS: URSODIOL 300 MG CAPSULE PO SCH ×3 (06:23→18:30)
[2022-06-14] MEDS: hydrOXYzine PAMOATE 25 MG CAPSULE (FP) PO PRN ×2 (06:24→21:21)
[2022-06-14] MEDS: DOCUSATE SODIUM 100 MG CAPSULE (FP) PO SCH ×2 (10:01→21:22)
[2022-06-14] MEDS: LACTULOSE 20 GM/30 ML UDC (FOR ORAL USE ONLY) PO SCH ×4 (10:01→21:39)
[2022-06-14] MEDS: predniSONE 20 MG TABLET (UD) PO SCH (10:01)
[2022-06-14] MEDS: amLODIPine BESYLATE 5 MG TABLET (FP) PO SCH (10:02)
[2022-06-14] MEDS: FERROUS SO4 325 MG TABLET (FP) PO SCH (10:02)
[2022-06-14] MEDS: CHOLESTYRAMINE/SUCROSE 4 GM PACKET PO SCH ×2 (10:02→21:23)
[2022-06-14] MEDS: ASCORBIC ACID 500 MG TABLET (FP) PO SCH (10:02)
[2022-06-14] MEDS: IBUPROFEN 400 MG TABLET (FP) PO PRN (12:07)
[2022-06-14] MEDS: MIRTAZAPINE 15 MG TABLET (FP) PO SCH (21:21)
[2022-06-14] MEDS: THIAMINE HCL 100 MG TABLET (FP) PO SCH (21:21)
[2022-06-14] MEDS: PRAVASTATIN 10 MG PO SCH (21:23)
[2022-06-15] MEDS: hydrOXYzine PAMOATE 25 MG CAPSULE (FP) PO PRN ×2 (06:08→21:05)
[2022-06-15] MEDS: URSODIOL 300 MG CAPSULE PO SCH ×3 (06:09→18:05)
[2022-06-15] MEDS: GABAPENTIN 300 MG CAPSULE PO SCH ×3 (06:09→21:05)
[2022-06-15] MEDS: CHOLESTYRAMINE/SUCROSE 4 GM PACKET PO SCH ×2 (09:38→21:06)
[2022-06-15] MEDS: FERROUS SO4 325 MG TABLET (FP) PO SCH (09:39)
[2022-06-15] MEDS: DOCUSATE SODIUM 100 MG CAPSULE (FP) PO SCH (09:39)
[2022-06-15] MEDS: LACTULOSE 20 GM/30 ML UDC (FOR ORAL USE ONLY) PO SCH ×4 (09:39→21:04)
[2022-06-15] MEDS: predniSONE 20 MG TABLET (UD) PO SCH (09:39)
[2022-06-15] MEDS: amLODIPine BESYLATE 5 MG TABLET (FP) PO SCH (09:40)
[2022-06-15] MEDS: ASCORBIC ACID 500 MG TABLET (FP) PO SCH (09:40)
[2022-06-15] MEDS: IBUPROFEN 400 MG TABLET (FP) PO PRN (10:10)
[2022-06-15] MEDS ORDERED: DOCUSATE SODIUM 100 MG CAPSULE (FP) PO PRN (11:27)
[2022-06-15] MEDS: MELATONIN 5 MG TABLETS PO PRN (21:04)
[2022-06-15] MEDS: THIAMINE HCL 100 MG TABLET (FP) PO SCH (21:04)
[2022-06-15] MEDS: PRAVASTATIN 10 MG PO SCH (21:05)
[2022-06-15] MEDS: MIRTAZAPINE 15 MG TABLET (FP) PO SCH (21:05)
[2022-06-16] MEDS: GABAPENTIN 300 MG CAPSULE PO SCH ×3 (06:25→21:46)
[2022-06-16] MEDS: hydrOXYzine PAMOATE 25 MG CAPSULE (FP) PO PRN (06:25)
[2022-06-16] MEDS: URSODIOL 300 MG CAPSULE PO SCH ×3 (06:26→18:15)
[2022-06-16] MEDS: FERROUS SO4 325 MG TABLET (FP) PO SCH (09:32)
[2022-06-16] MEDS: CHOLESTYRAMINE/SUCROSE 4 GM PACKET PO SCH ×2 (09:32→21:46)
[2022-06-16] MEDS: ASCORBIC ACID 500 MG TABLET (FP) PO SCH (09:33)
[2022-06-16] MEDS: predniSONE 20 MG TABLET (UD) PO SCH (09:33)
[2022-06-16] MEDS: amLODIPine BESYLATE 5 MG TABLET (FP) PO SCH (09:33)
[2022-06-16] MEDS: LACTULOSE 20 GM/30 ML UDC (FOR ORAL USE ONLY) PO SCH ×4 (09:33→21:46)
[2022-06-16] MEDS: PRAVASTATIN 10 MG PO SCH (21:46)
[2022-06-16] MEDS: THIAMINE HCL 100 MG TABLET (FP) PO SCH (21:46)
[2022-06-16] MEDS: MIRTAZAPINE 15 MG TABLET (FP) PO SCH (21:46)
[2022-06-17] MEDS: hydrOXYzine PAMOATE 25 MG CAPSULE (FP) PO PRN ×2 (06:08→21:03)
[2022-06-17] MEDS: GABAPENTIN 300 MG CAPSULE PO SCH ×3 (06:08→21:03)
[2022-06-17] MEDS: URSODIOL 300 MG CAPSULE PO SCH ×3 (06:09→18:20)
[2022-06-17] MEDS: CHOLESTYRAMINE/SUCROSE 4 GM PACKET PO SCH ×2 (09:31→22:21)
[2022-06-17] MEDS: ASCORBIC ACID 500 MG TABLET (FP) PO SCH (09:32)
[2022-06-17] MEDS: FERROUS SO4 325 MG TABLET (FP) PO SCH (09:32)
[2022-06-17] MEDS: amLODIPine BESYLATE 5 MG TABLET (FP) PO SCH (09:32)
[2022-06-17] MEDS: predniSONE 20 MG TABLET (UD) PO SCH (09:32)
[2022-06-17] MEDS: LACTULOSE 20 GM/30 ML UDC (FOR ORAL USE ONLY) PO SCH ×4 (09:33→21:41)
[2022-06-17] MEDS: THIAMINE HCL 100 MG TABLET (FP) PO SCH (21:03)
[2022-06-17] MEDS: MIRTAZAPINE 15 MG TABLET (FP) PO SCH (21:03)
[2022-06-17] MEDS: MELATONIN 5 MG TABLETS PO PRN (21:05)
[2022-06-17] MEDS: PRAVASTATIN 10 MG PO SCH (21:43)
[2022-06-18] MEDS: URSODIOL 300 MG CAPSULE PO SCH (06:14)
[2022-06-18] MEDS: hydrOXYzine PAMOATE 25 MG CAPSULE (FP) PO PRN (06:14)
[2022-06-18] MEDS: GABAPENTIN 300 MG CAPSULE PO SCH (06:14)
[2022-06-18 07:01] VITALS: RESP 20; TEMP 97.7
[2022-06-18] MEDS: ASCORBIC ACID 500 MG TABLET (FP) PO SCH (09:01)
[2022-06-18] MEDS: FERROUS SO4 325 MG TABLET (FP) PO SCH (09:01)
[2022-06-18] MEDS: amLODIPine BESYLATE 5 MG TABLET (FP) PO SCH (09:01)
[2022-06-18] MEDS: CHOLESTYRAMINE/SUCROSE 4 GM PACKET PO SCH (09:02)
[2022-06-18] MEDS: predniSONE 20 MG TABLET (UD) PO SCH (09:02)
[2022-06-18 09:03] VITALS: BP 124/86; PULSE 112
[2022-06-18] MEDS: LACTULOSE 20 GM/30 ML UDC (FOR ORAL USE ONLY) PO SCH (09:03)
== END 2022-06-18 09:10 | disposition home or self-care (01) | DRG 772 ==
LOC: YASAS 20:40 → Y3E 06-02 01:37
PROVIDERS: ADMIT Allergy & Immunology; ATTEND Surgery
PROC: HZ42ZZZ Group Counseling for Substance Abuse Treatment, Cognitive-Behavioral (ICD-10-PCS; principal; 2022-06-02)
DX: F11.20 Opioid dependence, uncomplicated (principal); F13.20 Sedative, hypnotic or anxiolytic dependence, uncomplicated; F10.20 Alcohol dependence, uncomplicated; F19.280 Other psychoactive substance dependence with psychoactive substance-induced anxiety disorder; F19.282 Other psychoactive substance dependence with psychoactive substance-induced sleep disorder; F32.A Depression, unspecified; I10 Essential (primary) hypertension; K83.01 Primary sclerosing cholangitis; K75.4 Autoimmune hepatitis; K74.60 Unspecified cirrhosis of liver; K21.9 Gastro-esophageal reflux disease without esophagitis; L85.3 Xerosis cutis; L30.9 Dermatitis, unspecified; L29.8 Other pruritus
CPT/HCPCS: 36415; 80053; 81003; 82140; 85027; 86780; 87811; C9803-CS; U0003; U0005

== ENCOUNTER 2022-10-29 15:19 | Inpatient (IN) | payer OTHER ==
[2022-10-29 15:46] VITALS: BMI 21.7
[2022-10-29] MEDS ORDERED: BISMUTH SUBSALICYLATE 524 MG/30 ML PO PRN (17:13)
[2022-10-29] MEDS ORDERED: LOPERAMIDE HCL 2 MG CAPSULE PO PRN (17:13)
[2022-10-29] MEDS ORDERED: MAGNESIUM HYDROX 2400MG/30ML ORAL SUSPENSION 30 ML CUP PO PRN (17:13)
[2022-10-29] MEDS ORDERED: NICOTINE 10 MG CARTRIDGE (INHALER) IH PRN (17:13)
[2022-10-29] MEDS ORDERED: BENZONATATE 200 MG CAPSULE PO PRN (17:13)
[2022-10-29] MEDS ORDERED: guaiFENesin 600 MG TABLET.ER (FP) PO PRN (17:13)
[2022-10-29] MEDS ORDERED: MAG HYDROX/AL HYDROX/SIMETH 30 ML UNIT-DOSE CUP PO PRN (17:13)
[2022-10-29] MEDS ORDERED: AMMONIUM LACTATE 12% LOTION 225 GM BOTTLE TP PRN (17:13)
[2022-10-29] MEDS ORDERED: ONDANSETRON *ODT* 4 MG TABLET SL PRN (17:13)
[2022-10-29] MEDS ORDERED: POLYETHYLENE GLYCOL (HEALTHYLAX) 3350 17 GM PACKET PO PRN (17:13)
[2022-10-29] MEDS ORDERED: IBUPROFEN 400 MG TABLET (FP) PO PRN (17:13)
[2022-10-29] MEDS ORDERED: NALOXONE HCL 0.4 MG/ML VIAL IM PRN (17:13)
[2022-10-29] MEDS ORDERED: IBUPROFEN 600 MG TABLET (FP) PO PRN (17:13)
[2022-10-29] MEDS ORDERED: NALOXONE HCL (KLOXXADO) 8 MG SPRAY NS PRN (17:13)
[2022-10-29] MEDS ORDERED: COLLOIDAL OATMEAL 1 BAR EACH TP PRN (17:13)
[2022-10-29] MEDS ORDERED: DICYCLOMINE HCL 10 MG CAPSULE PO PRN (17:13)
[2022-10-29] MEDS ORDERED: ACETAMINOPHEN 325 MG TABLET (FP) PO PRN (17:13)
[2022-10-29] MEDS ORDERED: BENZOCAINE/MENTHOL (CHLORASEPTIC ) LOZENGE MM PRN (17:13)
[2022-10-29] MEDS ORDERED: amLODIPine BESYLATE 5 MG TABLET (FP) PO SCH (18:30)
[2022-10-29] MEDS ORDERED: LORazepam 2 MG TABLET PO ONE ×2 (18:46→19:15)
[2022-10-29] MEDS: amLODIPine BESYLATE 5 MG TABLET (FP) PO SCH (18:55)
[2022-10-29] MEDS ORDERED: cloNIDine HCL 0.1 MG TABLET PO ONE (20:34)
[2022-10-29] MEDS ORDERED: MELATONIN 5 MG TABLETS PO SCH (22:00)
[2022-10-29] MEDS: THIAMINE HCL 100 MG TABLET (FP) PO SCH (22:49)
[2022-10-29] MEDS: METHOCARBAMOL 500 MG TABLET PO PRN (22:49)
[2022-10-29] MEDS: ATORVASTATIN CA 10 MG TABLET (FP) PO SCH (22:51)
[2022-10-29] MEDS: LORazepam 2 MG TABLET PO SCH (22:51)
[2022-10-30] MEDS: LORazepam 2 MG TABLET PO SCH ×4 (05:22→22:19)
[2022-10-30] MEDS ORDERED: methaDONE HCL 10 MG TABLET PO SCH (10:00)
[2022-10-30] MEDS: amLODIPine BESYLATE 5 MG TABLET (FP) PO SCH (10:22)
[2022-10-30] MEDS: PRENATAL VITAMINS W/ FOLIC ACID TABLET (FP) PO SCH (10:22)
[2022-10-30] MEDS: FERROUS SO4 325 MG TABLET (FP) PO SCH (10:22)
[2022-10-30 11:59] LABS: HEMATOCRIT 28.8 % (35.4-49); HEMOGLOBIN 9.4 GM/dL (11.7-16.9); MCH 30.5 pg (25.7-33.7); MCHC 32.6 g/dl (32.0-35.9); MEAN CELL VOLUME 93.4 fl (80-96); MEAN PLT VOLUME 9.6 fl (7.5-11.1); PLATELET COUNT 362 10^3/uL (134-434); RBC 3.08 M/mm3 (4.00-5.60); RDW 17.3 % (11.9-15.9); WHITE BLOOD COUNT 12.6 K/mm3 (4.0-10.0)
[2022-10-30 12:12] LABS: CALCIUM 9.1 mg/dL (8.5-10.1)
[2022-10-30 12:13] LABS: ALBUMIN 2.2 g/dl (3.4-5.0); BLOOD UREA NITROGEN 9.2 mg/dL (7-18)
[2022-10-30 12:16] LABS: CREATININE 0.7 mg/dL (0.55-1.3)
[2022-10-30 12:17] LABS: BILIRUBIN,TOTAL 9.3 mg/dL (0.2-1)
[2022-10-30] MEDS: METHOCARBAMOL 500 MG TABLET PO PRN (12:55)
[2022-10-30] MEDS ORDERED: LORazepam 2 MG TABLET PO PRN (13:03)
[2022-10-30] MEDS ORDERED: GABAPENTIN 300 MG CAPSULE PO SCH (14:00)
[2022-10-30] MEDS ORDERED: LORazepam 1 MG TABLET PO PRN (20:00)
[2022-10-30] MEDS: GABAPENTIN 300 MG CAPSULE PO SCH (22:18)
[2022-10-30] MEDS: ATORVASTATIN CA 10 MG TABLET (FP) PO SCH (22:18)
[2022-10-30] MEDS: THIAMINE HCL 100 MG TABLET (FP) PO SCH (22:18)
[2022-10-30] MEDS: MIRTAZAPINE 15 MG TABLET (FP) PO SCH (22:18)
[2022-10-31] MEDS: LORazepam 1 MG TABLET PO SCH ×4 (05:35→23:12)
[2022-10-31] MEDS: PRENATAL VITAMINS W/ FOLIC ACID TABLET (FP) PO SCH (10:06)
[2022-10-31] MEDS: GABAPENTIN 300 MG CAPSULE PO SCH ×2 (10:07→23:12)
[2022-10-31] MEDS: amLODIPine BESYLATE 5 MG TABLET (FP) PO SCH (10:08)
[2022-10-31] MEDS: POTASSIUM CHLORIDE ORAL LIQUID 20 MEQ/15 ML PO SCH ×2 (10:33→23:12)
[2022-10-31] MEDS: FERROUS SO4 325 MG TABLET (FP) PO SCH (10:33)
[2022-10-31 13:15] VITALS: BP 135/76; PULSE 83; RESP 16; TEMP 101.6
[2022-10-31] MEDS ORDERED: URSODIOL 500 MG PO SCH (22:00)
[2022-10-31] MEDS: ATORVASTATIN CA 10 MG TABLET (FP) PO SCH (23:11)
[2022-10-31] MEDS: MIRTAZAPINE 15 MG TABLET (FP) PO SCH (23:12)
[2022-10-31] MEDS: THIAMINE HCL 100 MG TABLET (FP) PO SCH (23:12)
[2022-11-01] MEDS ORDERED: LORazepam 0.5 MG TABLET PO SCH (05:00)
[2022-11-02] MEDS ORDERED: LORazepam 0.5 MG TABLET PO ONE (05:00)
== END 2022-11-01 | disposition short-term general hospital (02) | DRG 773 ==
LOC: YASAS 15:19 → Y3N 17:14
PROVIDERS: ADMIT Allergy & Immunology; ATTEND Surgery
PROC: HZ2ZZZZ Detoxification Services for Substance Abuse Treatment (ICD-10-PCS; principal; 2022-10-29)
DX: F10.230 Alcohol dependence with withdrawal, uncomplicated (principal); F11.20 Opioid dependence, uncomplicated; F13.20 Sedative, hypnotic or anxiolytic dependence, uncomplicated; F19.282 Other psychoactive substance dependence with psychoactive substance-induced sleep disorder; F19.280 Other psychoactive substance dependence with psychoactive substance-induced anxiety disorder; F19.24 Other psychoactive substance dependence with psychoactive substance-induced mood disorder; E87.6 Hypokalemia; K75.4 Autoimmune hepatitis; I10 Essential (primary) hypertension; R50.9 Fever, unspecified; D72.829 Elevated white blood cell count, unspecified
CPT/HCPCS: 36415; 80053; 82140; 85027; 86780; C9803-CS; U0003; U0005

== ENCOUNTER 2022-10-31 15:03 | Inpatient (IN) | payer OTHER ==
[2022-10-31 15:30] VITALS: BMI 21.7
[2022-10-31 17:46] LABS: URINE APPEARANCE CLEAR; URINE BILIRUBIN 3+ (NEGATIVE); URINE COLOR DK YELLOW; URINE GLUCOSE (UA) NEGATIVE (NEGATIVE); URINE KETONE NEGATIVE (NEGATIVE); URINE LEUK ESTERASE NEGATIVE (NEGATIVE); URINE NITRITE NEGATIVE (NEGATIVE); URINE PROTEIN TRACE (NEGATIVE); URINE UROBILINOGEN 0.2 mg/dL (0.2-1.0)
[2022-10-31 18:01] LABS: CHLORIDE 99 mmol/L (98-107)
[2022-10-31 18:03] LABS: CALCIUM 8.8 mg/dL (8.5-10.1)
[2022-10-31 18:04] LABS: BLOOD UREA NITROGEN 10.6 mg/dL (7-18); GLUCOSE,RANDOM 60 mg/dL (74-106)
[2022-10-31 18:06] LABS: CREATININE 0.7 mg/dL (0.55-1.3)
[2022-10-31 18:08] LABS: BILIRUBIN,TOTAL 2.8 mg/dL (0.2-1)
[2022-10-31 18:12] LABS: ALBUMIN 1.6 g/dl (3.4-5.0); SODIUM 117 mmol/L (136-145); TOT PROT 10.6 g/dl (6.4-8.2)
[2022-10-31 19:08] LABS: HEMATOCRIT 29.7 % (35.4-49); HEMOGLOBIN 9.9 GM/dL (11.7-16.9); MCH 30.6 pg (25.7-33.7); MCHC 33.3 g/dl (32.0-35.9); MEAN CELL VOLUME 91.8 fl (80-96); MEAN PLT VOLUME 8.3 fl (7.5-11.1); PLATELET COUNT 416 10^3/uL (134-434); RBC 3.23 M/mm3 (4.00-5.60); RDW 17.6 % (11.9-15.9); WHITE BLOOD COUNT 17.3 K/mm3 (4.0-10.0)
[2022-10-31 19:44] LABS: CALCIUM 9.4 mg/dL (8.5-10.1)
[2022-10-31 19:45] LABS: BLOOD UREA NITROGEN 11.1 mg/dL (7-18)
[2022-10-31 19:47] LABS: BILIRUBIN,DIRECT 10.9 mg/dL (0.0-0.2)
[2022-10-31 19:48] LABS: CREATININE 0.8 mg/dL (0.55-1.3)
[2022-10-31 19:49] LABS: BILIRUBIN,TOTAL 12.3 mg/dL (0.2-1)
[2022-10-31 19:53] LABS: ALBUMIN 2.4 g/dl (3.4-5.0); TOT PROT 7.7 g/dl (6.4-8.2)
[2022-10-31] MEDS ORDERED: PIPERACILLIN/TAZOB 4.5 GM 4.5 GM in DEXTROSE 5%-WATER 100 ML IVPB ONE (20:51)
[2022-10-31 20:55] LABS: ANISOCYTOSIS 2+; MACROCYTOSIS 2+
[2022-10-31] MEDS ORDERED: LORazepam 1 MG TABLET ONE (20:58)
[2022-10-31] MEDS ORDERED: LORazepam 2 MG TABLET PO ONE (20:58)
[2022-10-31] MEDS ORDERED: PIPERACILLIN/TAZOB 4.5 GM 4.5 GM/100 ML BAG IVPB ONE (21:29)
[2022-10-31] MEDS ORDERED: PIPERACILLIN/TAZOB 3.375 GM 3.375 GM/50 ML BAG IVPB ONE (21:29)
[2022-10-31] MEDS ORDERED: LACTATED RINGERS SOLUTION 1,000 ML/1,000 ML INFUS.BAG IV STA (21:47)
[2022-11-01] MEDS ORDERED: PIPERACILLIN/TAZOB 3.375 GM 3.375 GM in DEXTROSE 5%-WATER - 50 ML IVPB SCH ×2 (01:00→15:22)
[2022-11-01] MEDS ORDERED: PIPERACILLIN/TAZOB 3.375 GM 3.375 GM/50 ML BAG IVPB ONE ×2 (03:17→08:56)
[2022-11-01] MEDS: LACTATED RINGERS SOLUTION 1,000 ML/1,000 ML INFUS.BAG IV SCH ×2 (03:28→15:31)
[2022-11-01] MEDS ORDERED: PIPERACILLIN/TAZOB 3.375 GM 3.375 GM/50 ML BAG IVPB SCH (04:15)
[2022-11-01] MEDS ORDERED: LORazepam 0.5 MG TABLET PO ONE (05:00)
[2022-11-01] MEDS: PIPERACILLIN/TAZOB 3.375 GM 3.375 GM/50 ML BAG IVPB SCH ×3 (05:33→15:30)
[2022-11-01] MEDS ORDERED: methaDONE HCL 40 MG DISPERSABLE TABLET ONE (05:36)
[2022-11-01] MEDS ORDERED: LORazepam 0.5 MG TABLET ONE ×2 (05:36→12:09)
[2022-11-01] MEDS ORDERED: methaDONE HCL 10 MG TABLET ONE (05:36)
[2022-11-01] MEDS ORDERED: LACTULOSE 20 GM/30 ML UDC (FOR ORAL USE ONLY) ONE ×2 (05:36→13:11)
[2022-11-01] MEDS ORDERED: GABAPENTIN 300 MG CAPSULE ONE ×2 (05:37→13:12)
[2022-11-01] MEDS: LACTULOSE 20 GM/30 ML UDC (FOR ORAL USE ONLY) PO SCH ×3 (05:52→22:25)
[2022-11-01] MEDS: GABAPENTIN 300 MG CAPSULE PO SCH ×3 (05:52→22:25)
[2022-11-01] MEDS ORDERED: methaDONE HCL 40 MG DISPERSABLE TABLET PO SCH (06:00)
[2022-11-01] MEDS: URSODIOL 500 MG PO SCH ×2 (06:07→13:20)
[2022-11-01 07:26] LABS: INR 1.82 (0.83-1.09)
[2022-11-01 07:28] LABS: ACTIVATED PTT 48.3 SECONDS (25.2-36.5)
[2022-11-01 07:47] LABS: HEMATOCRIT 29.5 % (35.4-49); HEMOGLOBIN 10.2 GM/dL (11.7-16.9); MCH 31.3 pg (25.7-33.7); MCHC 34.5 g/dl (32.0-35.9); MEAN CELL VOLUME 90.6 fl (80-96); MEAN PLT VOLUME 9.5 fl (7.5-11.1); PLATELET COUNT 439 10^3/uL (134-434); RBC 3.25 M/mm3 (4.00-5.60); RDW 16.7 % (11.9-15.9); WHITE BLOOD COUNT 20.2 K/mm3 (4.0-10.0)
[2022-11-01 07:56] LABS: ALBUMIN 2.4 g/dl (3.4-5.0); BILIRUBIN,TOTAL 14.8 mg/dL (0.2-1); BLOOD UREA NITROGEN 10.4 mg/dL (7-18); CALCIUM 9.8 mg/dL (8.5-10.1); CREATININE 0.8 mg/dL (0.55-1.3); MAGNESIUM 1.5 mg/dL (1.8-2.4); PHOSPHOROUS 3.4 mg/dL (2.5-4.9); TOT PROT 7.9 g/dl (6.4-8.2)
[2022-11-01 08:58] LABS: ANISOCYTOSIS 0; HELMET CELLS 0; HOWELL-JOLLY BODIES 0; MACROCYTOSIS 0; OVALOCYTE 0; ROULEAU 0; SICKELED CELLS 0; TARGET CELLS 0; TEAR DROP CELLS 0; TOXIC GRANULATION 0
[2022-11-01 09:09] LABS: COCAINE, UR NEGATIVE (NEGATIVE); OPIATES, URI NEGATIVE (NEGATIVE); PHENCYCLIDINE,URINE NEGATIVE (NEGATIVE)
[2022-11-01 09:10] LABS: URINE AMPHETAMINES NEGATIVE (NEGATIVE); URINE BARBITURATES NEGATIVE (NEGATIVE)
[2022-11-01] MEDS ORDERED: amLODIPine BESYLATE 5 MG TABLET (FP) ONE (09:13)
[2022-11-01 09:14] LABS: METHADONE, UR POSITIVE (NEGATIVE); URINE BENZODIAZEPINES POSITIVE (NEGATIVE)
[2022-11-01] MEDS ORDERED: predniSONE 20 MG TABLET (UD) ONE (09:14)
[2022-11-01] MEDS ORDERED: predniSONE 5 MG TABLET (UD) PO SCH (10:00)
[2022-11-01] MEDS ORDERED: amLODIPine BESYLATE 5 MG TABLET (FP) PO SCH (10:00)
[2022-11-01] MEDS: LORazepam 0.5 MG TABLET PO PRN ×3 (12:14→22:25)
[2022-11-01 15:30] VITALS: RESP 18
[2022-11-01] MEDS ORDERED: predniSONE 20 MG TABLET (UD) PO SCH (17:21)
[2022-11-01] MEDS ORDERED: MAGNESIUM 1GM/D5W 100ML - 100 ML IVPB IVPB ONE ×2 (18:23→23:15)
[2022-11-01] MEDS ORDERED: MIRTAZAPINE 30 MG TABLET PO SCH (22:00)
[2022-11-01] MEDS ORDERED: MIRTAZAPINE 15 MG TABLET (FP) ONE (22:23)
[2022-11-02] MEDS: PIPERACILLIN/TAZOB 3.375 GM 3.375 GM in DEXTROSE 5%-WATER - 50 ML IVPB SCH ×2 (02:01→02:02)
[2022-11-02] MEDS: LACTATED RINGERS SOLUTION 1,000 ML/1,000 ML INFUS.BAG IV SCH (02:03)
[2022-11-02 02:35] VITALS: BP 136/82; PULSE 52; TEMP 97.9
== END 2022-11-02 02:30 | disposition short-term general hospital (02) ==
LOC: JER 15:03 → JERBED 21:46 → J7W 11-01 14:13
PROVIDERS: ADMIT Internal Medicine
DX: K83.01 Primary sclerosing cholangitis (principal); L30.9 Dermatitis, unspecified; F11.20 Opioid dependence, uncomplicated; R16.0 Hepatomegaly, not elsewhere classified; I10 Essential (primary) hypertension; E78.5 Hyperlipidemia, unspecified; F41.9 Anxiety disorder, unspecified; G47.00 Insomnia, unspecified; F32.A Depression, unspecified; R17 Unspecified jaundice; F13.20 Sedative, hypnotic or anxiolytic dependence, uncomplicated; D72.829 Elevated white blood cell count, unspecified
CPT/HCPCS: 0241U-QW; 36415; 71046-TC-FY; 76705-TC; 80053; 80307; 81003; 82248; 82977; 83690; 83735; 84100; 85025; 85610; 85730; 87040; 87086; 93005; 93010; 99285-25